=== PATIENT | male | born 1980 | race Caucasian/White ===

== ENCOUNTER 2016-08-18 11:42 | Emergency (ER) | payer OTHER ==
[2016-08-18 11:55] VITALS: TEMP 98.1
--- NOTE | 2016-08-18 12:42 | ED ---
General Adult HPI - General Chief complaint: Neuro Symptoms/Deficit Stated complaint: lt arm numbness,chest pain Time Seen by Provider: 08/18/16 12:06 Source: patient, RN notes reviewed, old records reviewed Mode of arrival: ambulatory Limitations: no limitations - History of Present Illness Initial comments: This is a 36-year-old male here for evaluation. Patient has yearly evaluation of left arm tingling and tingling left fingers tingling. Patient has history of multiple cardiac surgeries, for valve replacements, she reviewed heart disease. Significant heart disease. Patient states complaining of left hand tingling for about a week. The left eye factors for symptoms. Patient states he is to use Coumadin as directed. Denies any other complaints of pain or shortness of breath - Related Data Home Medications Medication Instructions Recorded Confirmed Warfarin Sodium [Coumadin] 7.5 mg PO HS 08/18/16 08/18/16 Previous Rx's Medication Instructions Recorded Metoprolol Tartrate 25 mg PO BID #120 tab 08/18/16 Allergies Allergy/AdvReac Type Severity Reaction Status Date / Time No Known Allergies Allergy Verified 08/18/16 12:42 Review of Systems ROS Statement: Those systems with pertinent positive or pertinent negative responses have been documented in the HPI. ROS Other: All systems not noted in ROS Statement are negative. Past Medical History Additional Past Medical History / Comment(s): GALLBLADDER NOT WORKING PROPERLY, CONGENITAL AORTIC VALVE STENOSIS History of Any Multi-Drug Resistant Organisms: None Reported Past Surgical History: Cardiac Valve Replacement, Coronary Bypass/CABG Additional Past Surgical History / Comment(s): 1991 & 1996 AORTIC VALVE REPLACED ,CYST REMOVED FROM THROAT Past Anesthesia/Blood Transfusion Reactions: No Reported Reaction Past Psychological History: No Psychological Hx Reported Smoking Status: Current every day smoker Past Alcohol Use History: Rare Additional Past Alcohol Use History / Comment(s): STARTED SMOKING 1995 ON AND OFF Past Drug Use History: Marijuana - Past Family History Mother Family Medical History: Diabetes Mellitus Father History Unknown: Yes General Exam Limitations: no limitations General appearance: alert, in no apparent distress Head exam: Present: atraumatic, normocephalic, normal inspection Eye exam: Present: normal appearance, PERRL, EOMI. Absent: scleral icterus, conjunctival injection, periorbital swelling ENT exam: Present: normal exam, mucous membranes moist Neck exam: Present: normal inspection. Absent: tenderness, meningismus, lymphadenopathy Respiratory exam: Present: normal lung sounds bilaterally. Absent: respiratory distress, wheezes, rales, rhonchi, stridor Cardiovascular Exam: Present: regular rate, normal rhythm, normal heart sounds. Absent: systolic murmur, diastolic murmur, rubs, gallop, clicks GI/Abdominal exam: Present: soft, normal bowel sounds. Absent: distended, tenderness, guarding, rebound, rigid Extremities exam: Present: normal inspection, full ROM, normal capillary refill. Absent: tenderness, pedal edema, joint swelling, calf tenderness Back exam: Present: normal inspection Neurological exam: Present: alert, oriented X3, CN II-XII intact Psychiatric exam: Present: normal affect, normal mood Skin exam: Present: warm, dry, intact, normal color. Absent: rash Course Vital Signs 08/18/16 08/18/16 08/18/16 11:52 12:22 13:00 Temperature 98.1 F Pulse Rate 105 H 101 H 95 Respiratory 20 20 20 Rate Blood Pressure 198/127 168/112 168/109 O2 Sat by Pulse 100 99 99 Oximetry 08/18/16 08/18/16 14:04 14:51 Temperature 98.1 F 98.1 F Pulse Rate 94 84 Respiratory 18 18 Rate Blood Pressure 175/110 152/98 O2 Sat by Pulse 100 98 Oximetry - Reevaluation(s) Reevaluation #1: Patient's symptoms have resolved blood pressure control EKG Findings - EKG Comments: EKG Findings:: EKG shows sinus tachycardia rate 101, CO 180, QRS 122, QTC 497 Medical Decision Making - Medical Decision Making 36 year with complexly [employer] medical history of multiple cardiac surgeries coming in with tingling in left arm, no source of breath no chest pain mildly hypertensive in no history of high blood pressure. Patient takes nothing for blood pressure, patient restart on beta katerina low dose as that seemed to help with her symptoms here in the emergency room. Patient is in no acute distress has no complaints is okay for discharge home, will follow up with cardiology as soon as he can - Lab Data Result diagrams: 08/18/16 13:00 08/18/16 13:00 Lab Results 08/18/16 08/18/16 08/18/16 Range/Units 12:49 12:57 12:57 WBC (3.8-10.6) k/uL RBC (4.30-5.90) m/uL Hgb (13.0-17.5) gm/dL Hct (39.0-53.0) % MCV (80.0-100.0) fL MCH (25.0-35.0) pg MCHC (31.0-37.0) g/dL RDW (11.5-15.5) % Plt Count (150-450) k/uL Neutrophils % % Lymphocytes % % Monocytes % % Eosinophils % % Basophils % % Neutrophils # (1.3-7.7) k/uL Lymphocytes # (1.0-4.8) k/uL Monocytes # (0-1.0) k/uL Eosinophils # (0-0.7) k/uL Basophils # (0-0.2) k/uL PT (9.0-12.0) sec INR (<1.1) APTT (22.0-30.0) sec Sodium (137-145) mmol/L Potassium (3.5-5.1) mmol/L Chloride (98-107) mmol/L Carbon Dioxide (22-30) mmol/L Anion Gap mmol/L BUN (9-20) mg/dL Creatinine (0.66-1.25) mg/dL Est GFR (MDRD) Af Amer (>60 ml/min/1.73 sqM) Est GFR (MDRD) Non-Af (>60 ml/min/1.73 sqM) Glucose (74-99) mg/dL Calcium (8.4-10.2) mg/dL Phosphorus (2.5-4.5) mg/dL Magnesium (1.6-2.3) mg/dL Total Bilirubin (0.2-1.3) mg/dL AST (17-59) U/L ALT (21-72) U/L Alkaline Phosphatase (38-126) U/L Total Creatine Kinase 149 (55-170) U/L CK-MB (CK-2) 1.5 (0.0-2.4) ng/mL CK-MB (CK-2) Rel Index 1.0 Troponin I <0.012 (0.000-0.034) ng/mL NT-Pro-B Natriuret Pep 324 pg/mL Total Protein (6.3-8.2) g/dL Albumin (3.5-5.0) g/dL Urine Color Yellow Urine Appearance Clear (Clear) Urine pH 6.5 (5.0-8.0) Ur Specific [place] 1.020 (1.001-1.035) Urine Protein 1+ H (Negative) Urine Glucose (UA) Negative (Negative) Urine Ketones Negative (Negative) Urine Blood Negative (Negative) Urine Nitrite Negative (Negative) Urine Bilirubin Negative (Negative) Urine Urobilinogen <2.0 (<2.0) mg/dL Ur Leukocyte Esterase Negative (Negative) Urine RBC 2 (0-5) /hpf Urine WBC 2 (0-5) /hpf Urine Mucus Moderate H (None) /hpf 08/18/16 08/18/16 08/18/16 Range/Units 12:57 13:00 13:00 WBC 6.3 (3.8-10.6) k/uL RBC 4.67 (4.30-5.90) m/uL Hgb 13.5 (13.0-17.5) gm/dL Hct 39.8 (39.0-53.0) % MCV 85.4 (80.0-100.0) fL MCH 28.9 (25.0-35.0) pg MCHC 33.9 (31.0-37.0) g/dL RDW 14.4 (11.5-15.5) % Plt Count 355 (150-450) k/uL Neutrophils % 70 % Lymphocytes % 20 % Monocytes % 6 % Eosinophils % 2 % Basophils % 1 % Neutrophils # 4.4 (1.3-7.7) k/uL Lymphocytes # 1.3 (1.0-4.8) k/uL Monocytes # 0.4 (0-1.0) k/uL Eosinophils # 0.1 (0-0.7) k/uL Basophils # 0.0 (0-0.2) k/uL PT 23.6 H (9.0-12.0) sec INR 2.5 (<1.1) APTT 31.7 H (22.0-30.0) sec Sodium 141 (137-145) mmol/L Potassium 3.9 (3.5-5.1) mmol/L Chloride 102 (98-107) mmol/L Carbon Dioxide 30 (22-30) mmol/L Anion Gap 9 mmol/L BUN 8 L (9-20) mg/dL Creatinine 0.90 (0.66-1.25) mg/dL Est GFR (MDRD) Af Amer >60 (>60 ml/min/1.73 sqM) Est GFR (MDRD) Non-Af >60 (>60 ml/min/1.73 sqM) Glucose 90 (74-99) mg/dL Calcium 9.5 (8.4-10.2) mg/dL Phosphorus 4.2 (2.5-4.5) mg/dL Magnesium 2.1 (1.6-2.3) mg/dL Total Bilirubin 1.3 (0.2-1.3) mg/dL AST 47 (17-59) U/L ALT 44 (21-72) U/L Alkaline Phosphatase 70 (38-126) U/L Total Creatine Kinase (55-170) U/L CK-MB (CK-2) (0.0-2.4) ng/mL CK-MB (CK-2) Rel Index Troponin I (0.000-0.034) ng/mL NT-Pro-B Natriuret Pep pg/mL Total Protein 7.4 (6.3-8.2) g/dL Albumin 4.4 (3.5-5.0) g/dL Urine Color Urine Appearance (Clear) Urine pH (5.0-8.0) Ur Specific [place] (1.001-1.035) Urine Protein (Negative) Urine Glucose (UA) (Negative) Urine Ketones (Negative) Urine Blood (Negative) Urine Nitrite (Negative) Urine Bilirubin (Negative) Urine Urobilinogen (<2.0) mg/dL Ur Leukocyte Esterase (Negative) Urine RBC (0-5) /hpf Urine WBC (0-5) /hpf Urine Mucus (None) /hpf - Radiology Data Radiology results: report reviewed (Chest x-ray is negative for acute disease), image reviewed Disposition Clinical Impression: Hypertension, Arm paresthesia, left Disposition: HOME SELF-CARE Condition: Good Instructions: Paresthesia (ED), Hypertension (ED) Prescriptions: Metoprolol Tartrate 25 mg PO BID #120 tab Referrals: None,Stated [Primary Care Provider] - 1-2 days
--- NOTE | 2016-08-18 12:50 | XR ---
EXAMINATION TYPE: XR chest 2V DATE OF EXAM: 08/18/2016 12:35 PM COMPARISON: CTA chest May 22, 2015. HISTORY: Weakness and chest pain. History of aortic valve replacement. TECHNIQUE: Frontal and lateral views of the chest are obtained. FINDINGS: Sternal wires are redemonstrated. There is new metallic aortic valvular ring. There is no new focal air space opacity or pneumothorax seen. There is new small left pleural effusion or pleura l thickening suspected on frontal view though less prominent on lateral view. The cardiac silhouette size is upper limits of normal currently. The osseous structures are intact. IMPRESSION: Possible new small left pleural effusion or pleural thickening. Interval surgery at [facility] of aortic valve for ascending aortic aneurysm. No acute pulmonary process is otherwise evident.
[2016-08-18 13:09] LABS: Basophils % (A) 1 %; CHCM 35.2; Eosinophils # (A) 0.1 k/uL (0-0.7); Eosinophils % (A) 2 %; HCT 39.8 % (39.0-53.0); HDW 3.24; HGB 13.5 gm/dL (13.0-17.5); Luc # (Auto) 0.14; Luc % (Auto) 2; Lymphocytes # (A) 1.3 k/uL (1.0-4.8); Lymphocytes % (A) 20 %; MCH 28.9 pg (25.0-35.0); MCHC 33.9 g/dL (31.0-37.0); MCV 85.4 fL (80.0-100.0); Mean Platelet Volume 6.7; Monocytes # (A) 0.4 k/uL (0-1.0); Monocytes % (A) 6 %; Neutrophils # (A) 4.4 k/uL (1.3-7.7); Neutrophils % (A) 70 %; RBC 4.67 m/uL (4.30-5.90); RDW 14.4 % (11.5-15.5); WBC 6.3 k/uL (3.8-10.6)
[2016-08-18 13:18] LABS: INR 2.5 (<1.1); Partial Thromboplastin Time 31.7 sec (22.0-30.0); Prothrombin Time 23.6 sec (9.0-12.0)
[2016-08-18 13:20] LABS: Appearance,Urine Clear (Clear); Bilirubin,Urine Negative (Negative); Glucose,Urine (UA) Negative (Negative); Ketones,Urine Negative (Negative); Leukocyte Esterase,Urine Negative (Negative); Mucus,Urine Moderate /hpf; Nitrite,Urine Negative (Negative); PH, Urine 6.5 (5.0-8.0); Particle Count 19429; Protein,Urine 1+ (Negative); RBC,Urine 2 /hpf (0-5); UA Billing (MACRO vs. MICRO) MICRO; Urobilinogen,Urine <2.0 mg/dL (<2.0); WBC,Urine 2 /hpf (0-5)
[2016-08-18 13:24] LABS: ALT 44 U/L (21-72); AST 47 U/L (17-59); Alkaline Phosphatase 70 U/L (38-126); Anion Gap 9 mmol/L; Blood Urea Nitrogen 8 mg/dL (9-20); Calcium 9.5 mg/dL (8.4-10.2); Carbon Dioxide 30 mmol/L (22-30); Chloride 102 mmol/L (98-107); Glucose 90 mg/dL (74-99); Magnesium 2.1 mg/dL (1.6-2.3); Non-African American GFR(MDRD) >60 (>60 ml/min/1.73 sqM); Phosphorous 4.2 mg/dL (2.5-4.5); Sodium 141 mmol/L (137-145); Total Bilirubin 1.3 mg/dL (0.2-1.3); Total Protein 7.4 g/dL (6.3-8.2)
[2016-08-18 13:29] LABS: Potassium 3.9 mmol/L (3.5-5.1)
[2016-08-18 13:43] LABS: Creatine Kinase 149 U/L (55-170)
[2016-08-18 13:57] LABS: Creatine Kinase MB 1.5 ng/mL (0.0-2.4); Troponin I <0.012 ng/mL (0.000-0.034)
[2016-08-18] MEDS ORDERED: LABETALOL SYRINGE 5 MG/ML IVP STA (14:03)
[2016-08-18 14:05] VITALS: RESP 18
[2016-08-18 14:51] VITALS: BP 152/98; PULSE 84
== END 2016-08-18 14:51 | disposition home or self-care (01) ==
LOC: EC 11:42
DX: I10 Essential (primary) hypertension (principal); R20.9 Unspecified disturbances of skin sensation; F17.200 Nicotine dependence, unspecified, uncomplicated; Z79.01 Long term (current) use of anticoagulants; Z98.61 Coronary angioplasty status
CPT/HCPCS: 36415; 71020; 80053; 81001; 82550; 82553; 83735; 83880; 84100; 84484; 85025; 85610; 85730; 93005; 96374; 99284

== ENCOUNTER 2017-01-09 22:36 | Observation (INO) | payer OTHER ==
[2017-01-09] MEDS ORDERED: NITROGLYCERIN OINT 1 INCH/GM PACKET TOPICAL STA (22:46)
[2017-01-09 23:11] LABS: Basophils % (A) 1 %; CH 31.4; CHCM 35.7; Eosinophils # (A) 0.2 k/uL (0-0.7); Eosinophils % (A) 3 %; HCT 41.1 % (39.0-53.0); HDW 3.01; Luc # (Auto) 0.12; Luc % (Auto) 2; Lymphocytes # (A) 1.8 k/uL (1.0-4.8); Lymphocytes % (A) 22 %; MCH 30.1 pg (25.0-35.0); MCHC 34.1 g/dL (31.0-37.0); MCV 88.4 fL (80.0-100.0); Mean Platelet Volume 7.3; Monocytes # (A) 0.4 k/uL (0-1.0); Monocytes % (A) 5 %; Neutrophils # (A) 5.4 k/uL (1.3-7.7); Neutrophils % (A) 67 %; RBC 4.65 m/uL (4.30-5.90); RDW 15.6 % (11.5-15.5); WBC (Perox) 8.18
[2017-01-09 23:20] LABS: INR 4.2 (<1.2); Partial Thromboplastin Time 39.3 sec (22.0-30.0); Prothrombin Time 41.2 sec (9.0-12.0)
[2017-01-09 23:21] LABS: ALT 59 U/L (21-72); AST 59 U/L (17-59); Alkaline Phosphatase 83 U/L (38-126); Anion Gap 11 mmol/L; Blood Urea Nitrogen 10 mg/dL (9-20); Calcium 9.5 mg/dL (8.4-10.2); Carbon Dioxide 26 mmol/L (22-30); Chloride 105 mmol/L (98-107); Glucose 92 mg/dL (74-99); Non-African American GFR(MDRD) >60 (>60 ml/min/1.73 sqM); Potassium 4.6 mmol/L (3.5-5.1); Sodium 142 mmol/L (137-145); Total Bilirubin 1.4 mg/dL (0.2-1.3); Total Protein 7.3 g/dL (6.3-8.2)
--- NOTE | 2017-01-09 23:26 | XR ---
EXAM: XR Chest, 2 Views CLINICAL HISTORY: Reason: Pain TECHNIQUE: Frontal and lateral views of the chest. COMPARISON: 08/18/16 FINDINGS: Lungs: Multiple surgical clips over right upper lung zone are again noted. Pleural space: Unremarkable. No pneumothorax. Heart: Sternal wires and prosthetic heart valve are again noted. Mediastinum: Unremarkable. Bones/joints: Within normal limits. IMPRESSION: No acute findings.
--- NOTE | 2017-01-09 23:35 | ED ---
Chest Pain HPI - General Stated Complaint: chest pain Time Seen by Provider: 01/09/17 22:38 Source: patient, police, EMS Mode of arrival: EMS Limitations: no limitations - History of Present Illness Initial Comments: This is a 36-year-old male with a history of aortic valve replacement due to a congenital abnormality who presents emergency department for numbness of the right arm and left neck with chest discomfort. He states that the symptoms been going on for today. He states that he is noticed that his blood pressure is been high because the clicking from his valve has been louder. He denies any real chest pain. He states that he has chronic discomfort from the surgery and never healed appropriately. He denies any shortness of breath. No recent travel or surgery. EKG done at the [facility] was concerning for possible [place] so he was sent to the emergency department. He reportedly has been having a little bit more elevated blood pressures over the last few days. He does take metoprolol 25 mg twice a day. He took his nighttime dose before he came to the hospital. - Related Data Home Medications Medication Instructions Recorded Confirmed Warfarin [Coumadin] 9 mg PO HS 01/09/17 01/09/17 Previous Rx's Medication Instructions Recorded Metoprolol Tartrate 25 mg PO BID #120 tab 08/18/16 Allergies Allergy/AdvReac Type Severity Reaction Status Date / Time No Known Allergies Allergy Verified 01/09/17 22:49 Review of Systems ROS Statement: Those systems with pertinent positive or pertinent negative responses have been documented in the HPI. ROS Other: All systems not noted in ROS Statement are negative. EKG Findings - EKG Comments: EKG Findings:: EKG showing normal sinus rhythm with a rate of 70. No abnormal ST segment changes or T-wave inversions. He has deep Q waves in the anterior leads. Suspicious for incomplete right bundle-branch block. QTC is 432. Other intervals are normal. No ectopy. Past Medical History Additional Past Medical History / Comment(s): GALLBLADDER NOT WORKING PROPERLY, CONGENITAL AORTIC VALVE STENOSIS, congenital heart disease,, History of Any Multi-Drug Resistant Organisms: None Reported Past Surgical History: Cardiac Valve Replacement, Coronary Bypass/CABG Additional Past Surgical History / Comment(s): 1991 & 1996 AORTIC VALVE REPLACED in 2014,CYST REMOVED FROM THROAT Past Anesthesia/Blood Transfusion Reactions: No Reported Reaction Past Psychological History: No Psychological Hx Reported Smoking Status: Former smoker Past Alcohol Use History: None Reported, Rare Past Drug Use History: Marijuana - Past Family History Mother Family Medical History: Diabetes Mellitus Father History Unknown: Yes General Exam - General Exam Comments Initial Comments: Constitutional: Awake alert Appears comfortable Head: Normocephalic atraumatic Eyes: no conjunctival injection No scleral icterus EOMI Neck: No JVD Supple Heart: Regular rate rhythm normal S1-S2 no murmurs, the patient has an audible click from his valve Lungs: Clear to auscultation bilaterally No wheezing No rales Abdomen: Soft nondistended nontender Extremities: Non edematous DP pulses intact Radial pulses intact Neuro: A&Ox3 No focal neurologic deficits Psych: Appropriate mood and affect Limitations: no limitations Course Vital Signs 01/09/17 01/09/17 01/10/17 22:41 23:34 00:36 Temperature 98.3 F 98.0 F Pulse Rate 71 66 70 Respiratory 18 18 18 Rate Blood Pressure 186/103 167/103 152/89 O2 Sat by Pulse 100 99 98 Oximetry Chest Pain MDM - MDM This is a 36-year-old male who presents emergency department for hypertension and neck and arm numbness and discomfort. He states that his blood pressure is also been poorly controlled after the last 3 or 4 days. The patient has had no changes to his medications. Here EKG was unchanged from previous. Blood pressure was elevated on arrival at 183/105. He was given nitro paste here which improved his blood pressure significantly. Troponins were negative. At this time due the patient's history of aortic valve replacement I feel that he should stay for better blood pressure control and adjustment of his blood pressure medications. I do not feel that heparin is required at this time is his Coumadin is slightly supratherapeutic and the patient was not really having any chest discomfort. I spoke with Dr. Cassidy who accepts the admission. All questions are answered. Disposition Clinical Impression: Hypertensive urgency Disposition: ADMITTED IP TO THIS HOSP Condition: Stable
[2017-01-09 23:45] LABS: Creatine Kinase MB 1.6 ng/mL (0.0-2.4); Troponin I <0.012 ng/mL (0.000-0.034)
[2017-01-10] MEDS ORDERED: NALOXONE 0.4 MG/ML 1 ML VIAL IV PRN (01:02)
[2017-01-10 06:48] LABS: INR 4.1 (<1.2); Prothrombin Time 40.7 sec (9.0-12.0)
[2017-01-10] MEDS ORDERED: RX INFO: IV CONTRAST WAS GIVEN 1 EACH MISC MISCELLANE PRN (08:50)
[2017-01-10] MEDS ORDERED: METOPROLOL TARTRATE 25 MG TAB PO SCH (09:00)
--- NOTE | 2017-01-10 09:37 | CT ---
EXAMINATION TYPE: CT angio chest DATE OF EXAM: 01/10/2017 9:25 AM COMPARISON: 05/22/2015 HISTORY: elevated BP, Rt arm pain, history of aortic valve stenosis CT DLP: 870 mGycm Automated exposure control for dose reduction was used. CONTRAST: CTA scan of the thorax is performed without and with IV Contrast, patient injected with 100 mL of Omn ipaque 350, pulmonary embolism protocol. . FINDINGS: Heart size is enlarged. No persistent filling defects are evident to suggest an acute pulmonary embol ism. No mediastinal or hilar adenopathy enlarged by CT criteria is evident. Previous surgery involving the ascending aorta noted. Aortic arch demonstrates a maximal dimension of 3.6 cm and again demonstrate lobulation and ectasia. The main pulmonary artery diameter at the bifurcation is 1.9 cm. Aneurysmal dilatation may have some compression of the right main pulmonary artery. The descending thoracic aorta tapers normally. Pulmonary arteries enhance normally. There is prominen ce of the left subclavian origin estimated at 2.6 cm. Lung windows are clear. Limited CT section through the upper abdomen are unremarkable. Hypertrophic change of the spine noted. Sternotomy wires seen. IMPRESSIONS: 1. No acute pulmonary embolism. 2. 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 Previous surgery involving the proximal aorta compatible with aneurysm repair.
--- NOTE | 2017-01-10 11:36 | ECHOF ---
Referral Reason:htn MEASUREMENTS -------- HEIGHT: 182.9 cm WEIGHT: 90.7 kg BP: 149/85 RVIDd: 3.2 cm (< 3.3) IVSd: 1.4 cm (0.6 - 1.1) LVIDd: 3.7 cm (3.9 - 5.3) LVPWd: 1.4 cm (0.6 - 1.1) IVSs: 1.9 cm LVIDs: 2.8 cm LVPWs: 1.8 cm LA Diam: 3.3 cm (2.7 - 3.8) LAESV Index (A-L): 24.30 ml/m Ao Diam: 2.5 cm (2.0 - 3.7) MV EXCURSION: 24.902 mm (> 18.000) MV EF SLOPE: 84 mm/s (70 - 150) EPSS: 0.7 cm MV E Elie: 0.87 m/s MV DecT: 231 ms MV A Elie: 0.61 m/s MV E/A Ratio: 1.42 AV maxP.42 mmHg AV meanP.91 mmHg FINDINGS -------- Sinus rhythm. This was a technically good study. Pt is S/P Repair of Asc. Aorta and AVR with mech. Valve. The left ventricular size is normal. There is moderate concentric left ventricular hypertrophy. Overall left ventricular systolic function is normal with, an EF between 55 - 60 %. The right ventricle is normal in size. Normal LA size by volume 22+/-6 ml/m2. The right atrium is normal in size. Peak/mean gradient across the Aortic Valve is 7.42mmHg / 3.91mmHg. Normally functioning mechanical prosthetic valve. The mitral valve leaflets are mild to moderately thickened. Mild mitral annular calcification present. Mild mitral regurgitation is present. The tricuspid valve appears structurally normal. No regurgitation noted 2.14m/sMild pulmonic stenosis. The aortic root size is normal. The ascending aorta is dilated measuring up to 38 mm. Normal inferior vena cava with normal inspiratory collapse consistent with estimated right atrial pressure of 5 mmHg. There is no pericardial effusion. CONCLUSIONS -------- 1. Sinus rhythm. 2. Normally functioning mechanical prosthetic valve. 3. The mitral valve leaflets are mild to moderately thickened. 4. Mild mitral annular calcification present. 5. Mild mitral regurgitation is present. 6. The tricuspid valve appears structurally normal. 7. No regurgitation noted 8. 2.14m/sMildpulmonic stenosis. 9. The aortic root size is normal. 10. The ascending aorta is dilated measuring up to 38 mm. 11. Normal inferior vena cava with normal inspiratory collapse consistent with estimated right atrial pressure of 5 mmHg. 12. This was a technically good study. 13. There is no pericardial effusion. 14. The left ventricular size is normal. 15. There is moderate concentric left ventricular hypertrophy. 16. Overall left ventricular systolic function is normal with, an EF between 55 - 60 %. 17. The right ventricle is normal in size. 18. Normal LA size by volume 22+/-6 ml/m2. 19. The right atrium is normal in size. 20. Peak/mean gradient across the Aortic Valve is 7.42mmHg / 3.91mmHg. UPPER AND BOTTOM LACER HAND: Sejal Giron RDCS
--- NOTE | 2017-01-10 13:33 | CONS ---
This is a 36-year-old gentleman with a known history of congenital heart disease with previous multiple open heart surgeries. He was last seen by Dr. Cabrera in May of 2015. At that time he had aortic valve stenosis and significant dilatation of ascending aorta. After that visit, in July of 2015 he went on to have mechanical aortic valve replacement with repair of ascending aorta. He is followed by a parts chaser in [facility]. He is currently incarcerated, was brought in by the Reclamation Engineer. His complaint was basically an elevated blood pressure and also a tingling feeling in the right upper extremity. With these symptoms he came into the hospital. He was found to have an elevated blood pressure after arrival and this has been addressed. His blood pressure is back to normal. His symptoms have resolved and his troponins are normal. At the time of my evaluation he is resting comfortably without symptoms. The quality of pain in his right anterior chest and also right upper extremity seemed very nondescript and quite atypical and this has already resolved. His blood pressure is normal, about 120 systolic. I am resuming his beta katerina and also his Coumadin will be reduced from 9 to 8 mg daily. His INR was 4.1 today. I have advised that he should have a CT angiography to assess his ascending aorta and if this is normal he can be discharged. He is known to have dilatation of the left subclavian which was found before but was not addressed and is being followed noninvasively at [facility]. PAST MEDICAL HISTORY: Remarkable for congenital heart disease for which he has had multiple surgeries. The last operation was in July of 2015 with repair of ascending aorta and replacement of aortic valve with a mechanical valve. Prior to that he also had a pulmonary valve replacement performed, the details of which are not available. He is also known to have hypertension as well. MEDICATIONS AT HOME: Include Coumadin and metoprolol. ALLERGIES: None. REVIEW OF SYSTEMS: Unremarkable other than above mentioned. On examination, blood pressure this morning was 117 systolic, pulse rate about 80 per minute. HEENT: Unremarkable. Fundus was not examined by me. NECK: Supple. There is no JVD. I do not hear a carotid bruit. HEART: Reveals S1/S2 with a prosthetic valve click and a short systolic murmur which is also conducted in the carotids. There are no gallops. LUNGS: Reveal decent air entry. ABDOMEN: Soft, nontender. LOWER EXTREMITIES: Reveal normal pulses. No edema. CENTRAL NERVOUS SYSTEM: Normal. EKG reveals sinus mechanism, IVCD after RBBB type and LVH by voltage criteria. LABORATORY DATA: Revealed unremarkable troponins. IMPRESSION: 1. Accelerated hypertension which has now settled down. 2. Atypical chest pain. 3. History of aortic valve replacement on mechanical vent and repair of ascending aorta performed in July of 2015 which is his third heart surgery. The details of previous surgeries are not known. He is known to have a pulmonary valve replacement as well. RECOMMENDATION: I am recommending that we will obtain a CT angiography of the chest to assess for his thoracic aortic status and if this is normal he can be discharged and follow up with his parts chaser at [facility]. No other intervention is necessary. I am recommending that we reduce the Coumadin from 9 to 8 mg daily, keep the INR between 3.5 and 4.0. Discussed my thoughts in detail with the patient. Thank you very much for the consult. MARLA
[2017-01-10 15:52] VITALS: BP 119/78; PULSE 69; RESP 18; TEMP 98
[2017-01-10] MEDS ORDERED: WARFARIN 2 MG TAB PO SCH (18:00)
--- NOTE | 2017-01-11 06:33 | HP ---
DATE OF ADMISSION: 01/10/2017 PRESENTING COMPLAINT: ( ) HISTORY OF PRESENTING COMPLAINT: This is a very pleasant 36-year-old patient who is actually in the fdc right now. The patient has a history of congenital aortic valve disorder and aneurysm. Patient had surgery way back on 1991 and 1996 and about a year and a half ago underwent aortic valve replacement with aneurysmal repair at [facility] by Dr. Garcia. This a mechanical heart failure. The patient on Coumadin. Patient had been in the fdc for about a month now. Patient presents with some discomfort in the neck area, some discomfort in the right arm and presented for the same. No dizziness, short of breath. No perspiration. Hence was admitted for further workup. No swelling in the legs. Otherwise tolerating his diet well. REVIEW OF SYSTEM: CONSTITUTIONAL: None. HEENT: None. RESPIRATORY: None. CARDIOVASCULAR: As above. GASTROINTESTINAL: None. GENITOURINARY: None. MUSCULOSKELETAL: None. DERMATOLOGICAL: Tattoos. LYMPHATICS: None. PSYCHIATRY: None. NEUROLOGICAL: None. 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 PAST SURGICAL HISTORY: Valve surgery in 1996 and aortic valve replacement with mechanical valve at [facility] by Dr. Garcia a year and a half ago. SOCIAL HISTORY: The patient normally smokes about 2 packs a day and does marijuana 1 or 2 grams a day. Lives with his fiance, currently incarcerated. FAMILY HISTORY: Diabetes mellitus type 2. HOME MEDICATIONS: 1. Lopressor 25 p.o. b.i.d. 2. Coumadin 8 mg p.o. daily. ALLERGIES: None. ON EXAMINATION: VITAL SIGNS ON PRESENTATION: Temperature 98.3, pulse 71, respirations 18, blood pressure 186/103, pulse ox 100% on room air. Repeat blood pressure went down 149/85. GENERAL APPEARANCE: Tall, average built, sitting up, comfortable. EYES: Pupils equal. Conjunctivae normal. HEENT: Oral cavity normal. NECK: JVD not raised. Mass not palpable. RESPIRATORY: Effort normal. Lungs are clear. CARDIOVASCULAR: Heart sounds are mechanical heart sounds. No edema. ABDOMEN: Soft, nontender. Liver and spleen not palpable. LYMPHATICS: No lymph node palpable in the neck or axillae. PSYCHIATRY: Alert and oriented x3. Mood and affect normal. NEUROLOGICAL: Pupils equal. Cranial nerves grossly intact. Power and sensation grossly intact. INVESTIGATIONS: White count 8, hemoglobin 14.0. INR 4.2. Potassium 4.6. Troponin x3 negative. EKG incomplete right bundle branch block. The 2-D echocardiogram some LVH. Chest CTA shows surgery to the proximal aorta compatible with aneurysmal repair. 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 ASSESSMENT: 1. Atypical chest pain, does not appear to be cardiac. 2. Mechanical aortic valve requiring Coumadin. 3. Coumadin monitoring. 4. Hyperbilirubinemia, asymptomatic. 5. Chronic nicotine dependence. PLAN: Cardiology was consulted. Home medications are resumed. INR will be followed. Care was discussed with the patient. Patient advised against smoking. Patient does not follow with any particular doctor here, but follows with Dr. Pearson his adult caregiver at [facility]. MARLA
[2017-01-11] MEDS ORDERED: WARFARIN 3 MG TAB PO SCH (21:00)
--- NOTE | 2017-01-14 08:37 | DS ---
DATE OF ADMISSION: 01/10/2017 DATE OF DISCHARGE: 01/10/2017 FINAL DIAGNOSES: 1. Atypical chest pain, noncardiac sounding. 2. Mechanical aortic valve, chronically on Coumadin. 3. Chronic nicotine dependence, cigarette smoker. 4. Left ventricular hypertrophy. HOSPITAL COURSE: This patient presented with some atypical chest pain, felt to be noncardiac. The patient has mechanical aortic valve done at [facility] by Dr. Garcia. Patient due to follow up with him. He was seen by Dr. Pedro Savage from cardiology. ( ) intervention. PE was ruled out. There was some left ventricular hypertrophy on his 2-D echocardiogram. DISCHARGE MEDICATIONS: 1. Metoprolol 25 mg po bid 2. Coumadin 8 mg po daily. Patient gets his INR checked. Continue checking the same. 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 Gallegos at [facility]. Care was discussed with the patient. On examination, mechanical heart sounds. Lungs are clear. MTDD
== END 2017-01-10 17:05 ==
LOC: EC 22:36 → 3OBS 01-10 01:02
PROVIDERS: ADMIT Hospitalist; ATTEND Hospitalist
DX: R07.89 Other chest pain (principal); Z95.2 Presence of prosthetic heart valve; Z79.01 Long term (current) use of anticoagulants; F17.210 Nicotine dependence, cigarettes, uncomplicated; I11.9 Hypertensive heart disease without heart failure; R17 Unspecified jaundice; Z95.1 Presence of aortocoronary bypass graft; Z79.899 Other long term (current) drug therapy; Z83.3 Family history of diabetes mellitus
CPT/HCPCS: 99285; 36415; 93005; 93306; 80053; 82553; 84484 ×2; 85025; 85610 ×2; 85730; 71020; 71275; G0378; Q9967

== ENCOUNTER 2017-04-21 11:19 | Emergency (ER) | payer OTHER ==
[2017-04-21 11:32] VITALS: RESP 18
[2017-04-21 12:29] LABS: Basophils # (A) 0.1 k/uL (0-0.2); Basophils % (A) 1 %; CHCM 35.1; Eosinophils # (A) 0.2 k/uL (0-0.7); Eosinophils % (A) 4 %; HDW 2.99; HGB 14.7 gm/dL (13.0-17.5); Luc # (Auto) 0.15; Luc % (Auto) 3; Lymphocytes # (A) 1.2 k/uL (1.0-4.8); Lymphocytes % (A) 21 %; MCH 30.3 pg (25.0-35.0); MCHC 34.2 g/dL (31.0-37.0); MCV 88.7 fL (80.0-100.0); Mean Platelet Volume 6.7; Monocytes # (A) 0.5 k/uL (0-1.0); Monocytes % (A) 9 %; Neutrophils # (A) 3.8 k/uL (1.3-7.7); Neutrophils % (A) 63 %; RBC 4.85 m/uL (4.30-5.90); WBC 5.9 k/uL (3.8-10.6); WBC (Perox) 5.89
--- NOTE | 2017-04-21 12:31 | ED ---
General Adult HPI - General Chief complaint: Recheck/Abnormal Lab/Rx Stated complaint: Abnormal Labs Time Seen by Provider: 04/21/17 11:35 Source: patient, RN notes reviewed Mode of arrival: ambulatory Limitations: no limitations - History of Present Illness Initial comments: 37 yo male with history of mechanical heart valve presents with elevated INR. Patient was found at his primary care physician to have an INR of 9. Patient states that approximately one day ago he did notice some minor bleeding from his gums, this is resolved without treatment. Patient denies rectal bleeding or hematuria. Denies abdominal pain. States he's had some intermittent chest pain, no chest pain currently.. Patient is currently asymptomatic. Patient has had some changes in his Coumadin dosing. - Related Data Previous Rx's Medication Instructions Recorded Metoprolol Tartrate 25 mg PO BID #120 tab 08/18/16 Warfarin [Coumadin] 8 mg PO DAILY@1800 #30 tab 01/10/17 Allergies Allergy/AdvReac Type Severity Reaction Status Date / Time No Known Allergies Allergy Verified 04/21/17 12:02 Review of Systems ROS Statement: Those systems with pertinent positive or pertinent negative responses have been documented in the HPI. ROS Other: All systems not noted in ROS Statement are negative. Past Medical History Additional Past Medical History / Comment(s): CONGENITAL AORTIC VALVE STENOSIS, congenital heart disease History of Any Multi-Drug Resistant Organisms: None Reported Past Surgical History: Cardiac Valve Replacement, Cholecystectomy, Coronary Bypass/CABG Additional Past Surgical History / Comment(s): 1991 & 1996 AORTIC VALVE REPLACED and again in 2014,CYST REMOVED FROM THROAT Past Anesthesia/Blood Transfusion Reactions: No Reported Reaction Past Psychological History: No Psychological Hx Reported Smoking Status: Current every day smoker Past Alcohol Use History: Rare Past Drug Use History: Marijuana - Past Family History Mother Family Medical History: Diabetes Mellitus Father History Unknown: Yes General Exam Limitations: no limitations General appearance: alert, in no apparent distress Head exam: Present: atraumatic, normocephalic Eye exam: Present: normal appearance, PERRL ENT exam: Present: normal exam Neck exam: Present: normal inspection. Absent: tenderness, meningismus Respiratory exam: Present: normal lung sounds bilaterally. Absent: respiratory distress Cardiovascular Exam: Present: regular rate, normal rhythm, systolic murmur GI/Abdominal exam: Present: soft. Absent: distended, tenderness Extremities exam: Present: normal inspection, full ROM, normal capillary refill. Absent: pedal edema Neurological exam: Present: alert, oriented X3. Absent: motor sensory deficit Psychiatric exam: Present: normal affect, normal mood Skin exam: Present: warm, dry, intact. Absent: cyanosis, diaphoretic Course Vital Signs 04/21/17 04/21/17 04/21/17 11:27 13:01 13:59 Temperature 97.0 F L 97.2 F L Pulse Rate 78 70 68 Respiratory 18 18 18 Rate Blood Pressure 155/95 129/81 133/73 O2 Sat by Pulse 98 99 Oximetry EKG Findings - EKG Comments: EKG Findings:: Normal sinus rhythm ventricular rate 76, MD interval 190, QRS duration 118, QTC 468, left anterior fascicular block, no signs of ischemia Medical Decision Making - Medical Decision Making 37 yo presenting with elevated INR. Outpatient INR was 19. Patient has recently been adjusting his Coumadin level. He was out of his medications and had to increase his dose. Patient's hemoglobin is stable, no signs of bleeding. INR is 5.8 in our lab. Patient is instructed to hold 2 doses of his warfarin and will follow-up for repeat INR with his primary care physician on Monday. Patient does have mild elevation in AST and ALT. No right upper quadrant pain. He will also follow up with his primary care physician regarding these laboratory abnormalities. - Lab Data Result diagrams: 04/21/17 12:12 04/21/17 12:12 Lab Results 04/21/17 04/21/17 04/21/17 Range/Units 12:12 12:12 12:12 WBC 5.9 (3.8-10.6) k/uL RBC 4.85 (4.30-5.90) m/uL Hgb 14.7 (13.0-17.5) gm/dL Hct 43.0 (39.0-53.0) % MCV 88.7 (80.0-100.0) fL MCH 30.3 (25.0-35.0) pg MCHC 34.2 (31.0-37.0) g/dL RDW 14.0 (11.5-15.5) % Plt Count 313 (150-450) k/uL Neutrophils % 63 % Lymphocytes % 21 % Monocytes % 9 % Eosinophils % 4 % Basophils % 1 % Neutrophils # 3.8 (1.3-7.7) k/uL Lymphocytes # 1.2 (1.0-4.8) k/uL Monocytes # 0.5 (0-1.0) k/uL Eosinophils # 0.2 (0-0.7) k/uL Basophils # 0.1 (0-0.2) k/uL PT (9.0-12.0) sec INR (<1.2) APTT (22.0-30.0) sec Sodium 140 (137-145) mmol/L Potassium 4.3 (3.5-5.1) mmol/L Chloride 102 (98-107) mmol/L Carbon Dioxide 30 (22-30) mmol/L Anion Gap 8 mmol/L BUN 9 (9-20) mg/dL Creatinine 0.81 (0.66-1.25) mg/dL Est GFR (MDRD) Af Amer >60 (>60 ml/min/1.73 sqM) Est GFR (MDRD) Non-Af >60 (>60 ml/min/1.73 sqM) Glucose 84 (74-99) mg/dL Calcium 9.9 (8.4-10.2) mg/dL Total Bilirubin 0.8 (0.2-1.3) mg/dL AST 133 H (17-59) U/L ALT 238 H (21-72) U/L Alkaline Phosphatase 86 (38-126) U/L Troponin I (0.000-0.034) ng/mL Total Protein 7.5 (6.3-8.2) g/dL Albumin 4.4 (3.5-5.0) g/dL Blood Type O Positive Blood Type Recheck No Antibody Screen POSITIVE Spec Expiration Date 04/24/2017231104/21/17 04/21/17 Range/Units 12:12 12:12 WBC (3.8-10.6) k/uL RBC (4.30-5.90) m/uL Hgb (13.0-17.5) gm/dL Hct (39.0-53.0) % MCV (80.0-100.0) fL MCH (25.0-35.0) pg MCHC (31.0-37.0) g/dL RDW (11.5-15.5) % Plt Count (150-450) k/uL Neutrophils % % Lymphocytes % % Monocytes % % Eosinophils % % Basophils % % Neutrophils # (1.3-7.7) k/uL Lymphocytes # (1.0-4.8) k/uL Monocytes # (0-1.0) k/uL Eosinophils # (0-0.7) k/uL Basophils # (0-0.2) k/uL PT 58.3 H (9.0-12.0) sec INR 5.8 H* (<1.2) APTT 42.1 H (22.0-30.0) sec Sodium (137-145) mmol/L Potassium (3.5-5.1) mmol/L Chloride (98-107) mmol/L Carbon Dioxide (22-30) mmol/L Anion Gap mmol/L BUN (9-20) mg/dL Creatinine (0.66-1.25) mg/dL Est GFR (MDRD) Af Amer (>60 ml/min/1.73 sqM) Est GFR (MDRD) Non-Af (>60 ml/min/1.73 sqM) Glucose (74-99) mg/dL Calcium (8.4-10.2) mg/dL Total Bilirubin (0.2-1.3) mg/dL AST (17-59) U/L ALT (21-72) U/L Alkaline Phosphatase (38-126) U/L Troponin I <0.012 (0.000-0.034) ng/mL Total Protein (6.3-8.2) g/dL Albumin (3.5-5.0) g/dL Blood Type Blood Type Recheck Antibody Screen Spec Expiration Date Disposition Clinical Impression: Elevated INR Disposition: HOME SELF-CARE Condition: Good Instructions: Elevated INR (ED) Referrals: Perri Zavaleta MD [Primary Care Provider] - 1-2 days Time of Disposition: 14:17
[2017-04-21 12:33] LABS: Partial Thromboplastin Time 42.1 sec (22.0-30.0)
[2017-04-21 12:38] LABS: Prothrombin Time 58.3 sec (9.0-12.0)
[2017-04-21 12:52] LABS: ALT 238 U/L (21-72); AST 133 U/L (17-59); Alkaline Phosphatase 86 U/L (38-126); Anion Gap 8 mmol/L; Blood Urea Nitrogen 9 mg/dL (9-20); Calcium 9.9 mg/dL (8.4-10.2); Carbon Dioxide 30 mmol/L (22-30); Chloride 102 mmol/L (98-107); Glucose 84 mg/dL (74-99); Non-African American GFR(MDRD) >60 (>60 ml/min/1.73 sqM); Potassium 4.3 mmol/L (3.5-5.1); Sodium 140 mmol/L (137-145); Total Bilirubin 0.8 mg/dL (0.2-1.3); Total Protein 7.5 g/dL (6.3-8.2)
[2017-04-21 13:04] LABS: INR 5.8 (<1.2)
[2017-04-21 14:00] VITALS: BP 133/73; PULSE 68; TEMP 97.2
== END 2017-04-21 14:30 | disposition home or self-care (01) ==
LOC: EC 11:19
DX: R79.1 Abnormal coagulation profile (principal); R74.0 Nonspecific elevation of levels of transaminase and lactic acid dehydrogenase [LDH]; R01.1 Cardiac murmur, unspecified; F17.200 Nicotine dependence, unspecified, uncomplicated; Z95.2 Presence of prosthetic heart valve
CPT/HCPCS: 36415; 80053; 84484; 85025; 85610; 85730; 86850; 86870; 86880; 86900; 86901; 86902; 93005; 99283

== ENCOUNTER → 2017-09-18 | Outpatient (CLI) | payer OTHER ==
--- NOTE | 2017-09-18 13:41 | CT ---
EXAMINATION TYPE: CT brain wo/w con DATE OF EXAM: 09/18/2017 COMPARISON: NONE HISTORY: Expressive aphasia x [address] DLP: 2505 mGycm Automated Exposure Control for Dose Reduction was Utilized. TECHNIQUE: CT scan of the head is performed without and with IV Contrast, patient injected with 100 m L of Isovue M300. FINDINGS: Noncontrast images show no acute intracranial hemorrhage or midline shift. The ventricles and sulci are within normal limits in size. Aguayo-white matter differentiation is fairly well preserv ed. Postcontrast images show no suspicious enhancing intraparenchymal mass. There is dominant tortuou s distal right vertebral artery incidentally noted. The globes are intact and the visualized sinuses are clear. IMPRESSION: No significant finding is seen to account for patient's symptoms.
== END | disposition home or self-care (01) ==
LOC: RADCTMAIN 12:20
PROVIDERS: ATTEND Psychiatry & Neurology Neurology
DX: R47.01 Aphasia (principal)
CPT/HCPCS: 70470; Q9967

== ENCOUNTER 2020-02-21 04:20 | Emergency (ER) | payer OTHER ==
--- NOTE | 2020-02-21 04:26 | ED ---
Recheck HPI - General Stated Complaint: Med Refill Time Seen by Provider: 02/21/20 04:21 Source: RN notes reviewed, old records reviewed Limitations: no limitations - History of Present Illness Initial Comments: This is a 31-year-old male presenting for evaluation regarding the medication refill MD Complaint: medication refill request -: unknown Returns Today for: request for prescription Symptoms Since Prior Visit: no new symptoms Context: ran out of medication Associated Symptoms: none - Related Data Previous Rx's Medication Instructions Recorded Metoprolol Tartrate 25 mg PO BID #120 tab 08/18/16 Warfarin [Coumadin] 8 mg PO DAILY@1800 #30 tab 01/10/17 Allergies Allergy/AdvReac Type Severity Reaction Status Date / Time No Known Allergies Allergy Verified 04/21/17 12:02 Review of Systems ROS Statement: Those systems with pertinent positive or pertinent negative responses have been documented in the HPI. ROS Other: All systems not noted in ROS Statement are negative. Past Medical History Additional Past Medical History / Comment(s): CONGENITAL AORTIC VALVE STENOSIS, congenital heart disease History of Any Multi-Drug Resistant Organisms: None Reported Past Surgical History: Cardiac Valve Replacement, Cholecystectomy, Coronary Bypass/CABG Additional Past Surgical History / Comment(s): 1991 & 1996 AORTIC VALVE REPLACED and again in 2014,CYST REMOVED FROM THROAT Past Anesthesia/Blood Transfusion Reactions: No Reported Reaction Past Psychological History: No Psychological Hx Reported Past Alcohol Use History: Rare Past Drug Use History: Marijuana - Past Family History Mother Family Medical History: Diabetes Mellitus Father History Unknown: Yes General Exam General appearance: alert, in no apparent distress Head exam: Present: atraumatic, normocephalic, normal inspection Eye exam: Present: normal appearance, PERRL, EOMI. Absent: scleral icterus, conjunctival injection, periorbital swelling ENT exam: Present: normal exam, mucous membranes moist Neck exam: Present: normal inspection. Absent: tenderness, meningismus, lymphadenopathy Respiratory exam: Present: normal lung sounds bilaterally. Absent: respiratory distress, wheezes, rales, rhonchi, stridor Cardiovascular Exam: Present: regular rate, normal rhythm, normal heart sounds. Absent: systolic murmur, diastolic murmur, rubs, gallop, clicks GI/Abdominal exam: Present: soft, normal bowel sounds. Absent: distended, tenderness, guarding, rebound, rigid Extremities exam: Present: normal inspection, full ROM, normal capillary refill. Absent: tenderness, pedal edema, joint swelling, calf tenderness Back exam: Present: normal inspection Neurological exam: Present: alert, oriented X3, CN II-XII intact Psychiatric exam: Present: normal affect, normal mood Skin exam: Present: warm, dry, intact, normal color. Absent: rash Course - Reevaluation(s) Reevaluation #1: 02/21/20 04:25 Medical record is reviewed Reevaluation #2: 02/21/20 04:25 Patient is no new significant symptoms or complaints Medical Decision Making - Medical Decision Making 39 male DF for evaluation patient Dese for evaluation regards to medication r efill, prescription will be refilled and patient can be discharged home Disposition Clinical Impression: Medication refill Disposition: HOME SELF-CARE Condition: Good Instructions (If sedation given, give patient instructions): Medicine Refill (ED) Is patient prescribed a controlled substance at d/c from ED?: No Referrals: Perri Zavaleta MD [Primary Care Provider] - 1-2 days
[2020-02-21 04:29] VITALS: BP 150/111; PULSE 121; RESP 16; TEMP 98.4
[2020-02-21] MEDS ORDERED: METOPROLOL TARTRATE 50 MG TAB PO STA (04:41)
[2020-02-21] MEDS ORDERED: lisinopriL 10 MG TAB PO STA (04:41)
[2020-02-21] MEDS ORDERED: ENOXAPARIN 100 MG/ML SYRINGE SQ ONE (05:00)
[2020-02-21] MEDS ORDERED: WARFARIN 5 MG TAB PO SCH (05:15)
[2020-02-21] MEDS ORDERED: WARFARIN 5 MG TAB PO ONE (05:15)
== END 2020-02-21 05:17 | disposition home or self-care (01) ==
LOC: EC 04:20
DX: Z76.0 Encounter for issue of repeat prescription (principal); F17.200 Nicotine dependence, unspecified, uncomplicated; Z95.1 Presence of aortocoronary bypass graft; Z95.2 Presence of prosthetic heart valve
CPT/HCPCS: 99282; 96372; J1650

== ENCOUNTER 2020-05-17 22:25 | Emergency (ER) | payer OTHER ==
[2020-05-17 22:34] VITALS: PULSE 66
[2020-05-17 23:06] LABS: Basophils # (A) 0.1 k/uL (0-0.2); Basophils % (A) 2 %; Eosinophils # (A) 0.2 k/uL (0-0.7); Eosinophils % (A) 4 %; HCT 40.6 % (39.0-53.0); HGB 14.2 gm/dL (13.0-17.5); Lymphocytes # (A) 1.5 k/uL (1.0-4.8); Lymphocytes % (A) 25 %; MCH 30.9 pg (25.0-35.0); MCV 88.3 fL (80.0-100.0); Mean Platelet Volume 7.3; Monocytes # (A) 0.4 k/uL (0-1.0); Monocytes % (A) 6 %; Neutrophils # (A) 3.8 k/uL (1.3-7.7); Neutrophils % (A) 62 %; Platelet Count 260 k/uL (150-450); RDW 13.5 % (11.5-15.5); WBC 6.1 k/uL (3.8-10.6)
--- NOTE | 2020-05-17 23:14 | XR ---
EXAMINATION TYPE: XR chest 2V DATE OF EXAM: 05/17/2020 COMPARISON: 01/09/2017 HISTORY: Chest pain TECHNIQUE: FINDINGS: Heart and mediastinum are normal. There is slight blunting of left costophrenic angle. Ther e are sternal wires. There are no hilar masses. Bony thorax is intact. IMPRESSION: Previous surgery. Minimal pleural diaphragmatic scarring left lung base. No acute lung di sease. No change compared to old exam.
[2020-05-17 23:15] LABS: ALT 89 U/L (4-49); AST 63 U/L (17-59); African American GFR (CKD) >90 (>60 ml/min/1.73 sqM); Albumin 4.5 g/dL (3.5-5.0); Alkaline Phosphatase 90 U/L (38-126); Anion Gap 4 mmol/L; Blood Urea Nitrogen 8 mg/dL (9-20); Calcium 9.3 mg/dL (8.4-10.2); Carbon Dioxide 29 mmol/L (22-30); Chloride 103 mmol/L (98-107); Glucose 96 mg/dL (74-99); INR 2.3 (<1.2); Magnesium 1.8 mg/dL (1.6-2.3); Non-African American GFR(CKD) >90 (>60 ml/min/1.73 sqM); Partial Thromboplastin Time 32.4 sec (22.0-30.0); Potassium 4.2 mmol/L (3.5-5.1); Prothrombin Time 22.8 sec (9.0-12.0); Sodium 136 mmol/L (137-145); Total Bilirubin 1.1 mg/dL (0.2-1.3); Total Protein 7.5 g/dL (6.3-8.2)
--- NOTE | 2020-05-18 00:41 | ED ---
General Adult HPI - General Chief complaint: Skin/Abscess/Foreign Body Stated complaint: High BP Time Seen by Provider: 05/17/20 22:38 Source: patient, family, RN notes reviewed, old records reviewed Mode of arrival: ambulatory Limitations: no limitations - History of Present Illness Initial comments: 40-year-old male patient to ED for evaluation of hypertension. Patient does have a history of congenital heart disease and aortic valve replacement as well as coronary artery bypass graft. His antiplatelet and warfarin. No chest pain no shortness of breath. Also reports that he has a painful lymph node under his left submandibular region. Systemic: Pt denies fatigue, fever/chills, rash. Pt denies weakness, night sweats, weight loss. Neuro: Pt denies headache, visual disturbances, syncope or pre-syncope. HEENT: Pt denies ocular discharge or irritation, otalgia, rhinorrhea, pharyngitis or notable lymphadenopathy. Cardiopulmonary: Pt denies chest pain, SOB, heart palpitations, dyspnea on exertion. Abdominal/GI: Pt denies abdominal pain, n/v/d. : Pt denies dysuria, burning w/ urination, frequency/urgency. Denies new onset urinary or bowel incontinence. MSK: Pt denies myalgia, loss of strength or function in extremities. Neuro: Pt denies new onset weakness, paresthesias. - Related Data Home Medications Medication Instructions Recorded Confirmed Amoxic-Pot Clav 875-125Mg 1 tab PO BID 05/17/20 05/17/20 [Augmentin 875-125] Ibuprofen [Motrin Ib] 400 mg PO TID PRN 05/17/20 05/17/20 Ibuprofen [Motrin Ib] 600 mg PO ONCE PRN 05/17/20 05/17/20 Metoprolol Tartrate [Lopressor] 75 mg PO BID 05/17/20 05/17/20 Warfarin [Coumadin] 5 mg PO HS 05/17/20 05/17/20 busPIRone HCl [Buspar] 10 mg PO BID 05/17/20 05/17/20 cloNIDine HCL [Catapres] 0.2 mg PO ONCE PRN 05/17/20 05/17/20 Previous Rx's Medication Instructions Recorded Lisinopril [Prinivil] 10 mg PO DAILY #30 tab 02/21/20 Allergies Allergy/AdvReac Type Severity Reaction Status Date / Time No Known Allergies Allergy Verified 05/17/20 22:57 Review of Systems ROS Statement: Those systems with pertinent positive or pertinent negative responses have been documented in the HPI. ROS Other: All systems not noted in ROS Statement are negative. Past Medical History Past Medical History: Hypertension Additional Past Medical History / Comment(s): CONGENITAL AORTIC VALVE STENOSIS, congenital heart disease History of Any Multi-Drug Resistant Organisms: None Reported Past Surgical History: Cardiac Valve Replacement, Cholecystectomy, Coronary Bypass/CABG Additional Past Surgical History / Comment(s): 1991 & 1996 AORTIC VALVE REPLACED and again in 2014,CYST REMOVED FROM THROAT Past Anesthesia/Blood Transfusion Reactions: No Reported Reaction Past Psychological History: No Psychological Hx Reported Smoking Status: Former smoker Past Alcohol Use History: Rare Past Drug Use History: Marijuana, Methamphetamine - Past Family History Mother Family Medical History: Diabetes Mellitus Father History Unknown: Yes General Exam - General Exam Comments Initial Comments: Constitutional: NAD, AOX3, Pt has pleasant affect. HEENT: NC/AT, trachea midline, neck supple, no lymphadenopathy. Posterior pharynx non erythematous, without exudates. External ears appear normal, without discharge. Mucous membranes moist. Eyes PERRLA, EOM intact. There is no scleral icterus. No pallor noted. Mild leg tender mobile submandibular lymph node approximately 1.5 cm. No external skin changes. Cardiopulmonary: RRR, no murmurs, rubs or gallops, no JVD noted. Lungs CTAB in anterior and posterior gonzalez. No peripheral edema. Abdominal exam: Abdomen soft and non-distended. Abdomen non-tender to palpation in all 4 quadrants. Bowel sounds active in LLQ. No hepatosplenomegaly. No ecchymosis Neuro: CN II-XII grossly intact. No nuchal rigidity. No raccon eyes, no payne sign, no hemotympanum. No cervical spinal tenderness. MSK: No posterior calf tenderness bilaterally, homans sign negative bilaterally. Posterior tibialis and radial pulse +2 bilaterally. Sensation intact in upper and lower extremities. Full active ROM in upper and lower extremities, 5/5 streg nth. Limitations: no limitations Course Vital Signs 05/17/20 05/17/20 05/17/20 22:27 23:01 23:20 Temperature 97.9 F Pulse Rate 66 66 Respiratory 18 17 Rate Blood Pressure 204/123 143/93 151/92 O2 Sat by Pulse 100 100 Oximetry 05/17/20 23:51 Temperature Pulse Rate Respiratory Rate Blood Pressure 139/88 O2 Sat by Pulse Oximetry Medical Decision Making - Medical Decision Making 40-year-old male patient to ED for evaluation of hypertension. Patient does take a beta katerina and ZORAIDA inhibitor. Patient also wanted a lymph node evaluated. Evidence of is mobile and mildly tender. Physical exam otherwise benign. Investigations unremarkable. EKG no significant change from prior. Patient blood pressure has been within acceptable limits without any intervention. Patient stable for discharge and outpatient follow-up and return precautions. Case discussed with Dr. Beavers. - Lab Data Result diagrams: 05/17/20 22:58 05/17/20 22:58 Lab Results 05/17/20 05/17/20 05/17/20 Range/Units 22:58 22:58 22:58 WBC 6.1 (3.8-10.6) k/uL RBC 4.60 (4.30-5.90) m/uL Hgb 14.2 (13.0-17.5) gm/dL Hct 40.6 (39.0-53.0) % MCV 88.3 (80.0-100.0) fL MCH 30.9 (25.0-35.0) pg MCHC 35.0 (31.0-37.0) g/dL RDW 13.5 (11.5-15.5) % Plt Count 260 (150-450) k/uL MPV 7.3 Neutrophils % 62 % Lymphocytes % 25 % Monocytes % 6 % Eosinophils % 4 % Basophils % 2 % Neutrophils # 3.8 (1.3-7.7) k/uL Lymphocytes # 1.5 (1.0-4.8) k/uL Monocytes # 0.4 (0-1.0) k/uL Eosinophils # 0.2 (0-0.7) k/uL Basophils # 0.1 (0-0.2) k/uL PT 22.8 H (9.0-12.0) sec INR 2.3 H (<1.2) APTT 32.4 H (22.0-30.0) sec Sodium 136 L (137-145) mmol/L Potassium 4.2 (3.5-5.1) mmol/L Chloride 103 (98-107) mmol/L Carbon Dioxide 29 (22-30) mmol/L Anion Gap 4 mmol/L BUN 8 L (9-20) mg/dL Creatinine 0.81 (0.66-1.25) mg/dL Est GFR (CKD-EPI)AfAm >90 (>60 ml/min/1.73 sqM) Est GFR (CKD-EPI)NonAf >90 (>60 ml/min/1.73 sqM) Glucose 96 (74-99) mg/dL Calcium 9.3 (8.4-10.2) mg/dL Magnesium 1.8 (1.6-2.3) mg/dL Total Bilirubin 1.1 (0.2-1.3) mg/dL AST 63 H (17-59) U/L ALT 89 H (4-49) U/L Alkaline Phosphatase 90 (38-126) U/L Troponin I (0.000-0.034) ng/mL Total Protein 7.5 (6.3-8.2) g/dL Albumin 4.5 (3.5-5.0) g/dL 05/17/20 Range/Units 22:58 WBC (3.8-10.6) k/uL RBC (4.30-5.90) m/uL Hgb (13.0-17.5) gm/dL Hct (39.0-53.0) % MCV (80.0-100.0) fL MCH (25.0-35.0) pg MCHC (31.0-37.0) g/dL RDW (11.5-15.5) % Plt Count (150-450) k/uL MPV Neutrophils % % Lymphocytes % % Monocytes % % Eosinophils % % Basophils % % Neutrophils # (1.3-7.7) k/uL Lymphocytes # (1.0-4.8) k/uL Monocytes # (0-1.0) k/uL Eosinophils # (0-0.7) k/uL Basophils # (0-0.2) k/uL PT (9.0-12.0) sec INR (<1.2) APTT (22.0-30.0) sec Sodium (137-145) mmol/L Potassium (3.5-5.1) mmol/L Chloride (98-107) mmol/L Carbon Dioxide (22-30) mmol/L Anion Gap mmol/L BUN (9-20) mg/dL Creatinine (0.66-1.25) mg/dL Est GFR (CKD-EPI)AfAm (>60 ml/min/1.73 sqM) Est GFR (CKD-EPI)NonAf (>60 ml/min/1.73 sqM) Glucose (74-99) mg/dL Calcium (8.4-10.2) mg/dL Magnesium (1.6-2.3) mg/dL Total Bilirubin (0.2-1.3) mg/dL AST (17-59) U/L ALT (4-49) U/L Alkaline Phosphatase (38-126) U/L Troponin I <0.012 (0.000-0.034) ng/mL Total Protein (6.3-8.2) g/dL Albumin (3.5-5.0) g/dL - EKG Data -: EKG Interpreted by Me (and Dr. Beavers ) EKG Comments: Ventricular rate 67, IA interval 196, QRS 130, QT/QTc 426/450. Normal sinus rhythm, possible left bundle branch block, right bundle branch block, left naterior fasicular block. No concern for acute ischemia. Disposition Clinical Impression: Hypertension Disposition: HOME SELF-CARE Condition: Stable Instructions (If sedation given, give patient instructions): Hypertension (ED) Additional Instructions: Follow up with PCP tomorrow. Continue to monitor blood pressure. Return to ED with any worsening symptoms. Is patient prescribed a controlled substance at d/c from ED?: No Referrals: Perri Zavaleta MD [Primary Care Provider] - 1-2 days
[2020-05-18 01:30] VITALS: BP 133/86; RESP 15; TEMP 98.5
== END 2020-05-18 01:20 | disposition home or self-care (01) ==
LOC: EC 22:25
DX: I10 Essential (primary) hypertension (principal); Z79.01 Long term (current) use of anticoagulants; Z79.899 Other long term (current) drug therapy; Z95.4 Presence of other heart-valve replacement; Z95.1 Presence of aortocoronary bypass graft; Z87.891 Personal history of nicotine dependence
CPT/HCPCS: 36415; 71046; 80053; 83735; 84484; 85025; 85610; 85730; 93005; 99284

== ENCOUNTER → 2020-07-23 | Outpatient (CLI) | payer BC, OTHER ==
[2020-07-23 15:51] LABS: African American GFR (CKD) >90 (>60 ml/min/1.73 sqM); Blood Urea Nitrogen 16 mg/dL (9-20); Non-African American GFR(CKD) 84 (>60 ml/min/1.73 sqM)
--- NOTE | 2020-07-23 16:16 | CT ---
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 Contrast CTA of the thoracic aorta was performed from the lung apex through the upper abdomen. 3D re construction imaging obtained at a separate workstation. CT Chest: THORACIC AORTA: Previous surgery involving the ascending aorta is again noted and is unchanged. Aorti c arch demonstrates a maximal dimension of 3.6 cm versus 3.6 cm and again demonstrate lobulation and ectasia. The main pulmonary artery diameter at the bifurcation is 1.9 cm. Aneurysmal dilatation may h ave some compression of the right main pulmonary artery. The descending thoracic aorta tapers normall y. Pulmonary arteries enhance normally. There is prominence of the left subclavian origin estimated a t 2.6 cm. LUNGS: The lungs are clear and free of infiltrate or atelectasis. No pulmonary nodule or mass is det ected. No pleural effusion or CT evidence of interstitial lung disease. MEDIASTINUM: No evidence for mediastinal hematoma. The heart is not enlarged. No evidence for med iastinal mass or adenopathy. HILAR STRUCTURES: No evidence for mass. No hilar adenopathy is appreciated. OTHER: No significant abnormality. IMPRESSION- Stable evaluation.
== END | disposition home or self-care (01) ==
LOC: RADCTMAIN 15:06
PROVIDERS: ATTEND Internal Medicine Interventional Cardiology
DX: I71.2 Thoracic aortic aneurysm, without rupture (principal); Z98.890 Other specified postprocedural states
CPT/HCPCS: 82565; 84520; 71275; 36415; Q9967

== ENCOUNTER → 2021-03-18 | Outpatient (CLI) | payer OTHER ==
--- NOTE | 2021-03-18 11:12 | US ---
EXAMINATION TYPE: US abdomen complete DATE OF EXAM: 03/18/2021 COMPARISON: Ultrasound abdomen March 04, 2015 CLINICAL HISTORY: R79.89 Elevated LFT, R94.4 Abnormal Kidney function. EXAM MEASUREMENTS: Liver Length: 14.0 cm Gallbladder Wall: Surgically absent CBD: 0.2 cm Spleen: 12.1 cm Right Kidney: 11.1x4.3x4.6 cm Left Kidney: 10.2x6.6x5.0 cm Very difficult exam due to bowel gas, body habitus. Pancreas: Obscured by bowel gas Liver: Increased attenuation, ? hemangioma 1.4x1.1x1.4cm seen previously, other small hyperechoic ar ea not visualized today Gallbladder: Surgically absent CBD: wnl Spleen: wnl Right Kidney: wnl Left Kidney: wnl Upper IVC: Obscured by overlying bowel gas Abd Aorta: Obscured by overlying bowel gas The visualized liver is heterogeneous. Evaluation for focal masses suboptimal due to the heterogeneit y. Technologist gilbert 1.4 cm hyperechoic round focus near the hepatic dome unchanged from prior study presumed benign hemangioma. Suboptimal visualization of the aorta and IVC. There is no evidence of cholelithiasis. Common bile duct is unremarkable. Suboptimal evaluation of pancreas on images saved. The spleen is unremarkable. Kidneys are symmetric and free of hydronephrosis. No renal lesions ar e seen. IMPRESSION: Heterogeneous hyperechoic appearance of liver could be an basis of diffuse fatty infiltra tion and/or underlying hepatocellular disease. No significant change from prior. Stable small hepatic dome hemangioma. No new intrahepatic ductal dilatation or surrounding ascites. No new hydronephrosis .
== END | disposition home or self-care (01) ==
LOC: RADUSWWP 09:47
PROVIDERS: ATTEND Family Medicine
DX: R79.89 Other specified abnormal findings of blood chemistry (principal)
CPT/HCPCS: 76700

== ENCOUNTER 2021-12-31 12:18 | Emergency (ER) | payer OTHER ==
[2021-12-31 12:37] VITALS: BP 100/68; RESP 18; TEMP 98.5
[2021-12-31] MEDS ORDERED: MECLIZINE 12.5 MG TAB PO STA (14:41)
--- NOTE | 2021-12-31 14:44 | ED ---
General Adult HPI - General Chief complaint: Neuro Symptoms/Deficit Stated complaint: dizziness Time Seen by Provider: 12/31/21 14:25 Source: patient, RN notes reviewed, old records reviewed Mode of arrival: ambulatory Limitations: no limitations - History of Present Illness Initial comments: 41-year-old well-appearing male presents ambulatory to the emergency room with complaints of intermittent dizziness for the past 2 days. Patient states that he was at work and he felt as though his balance was off and the room was spinning. He denies any headache. No falls, no head injuries. No focal motor weakness. He does take Coumadin for an artificial heart valve. Denies any fevers. -: days(s) (2) Severity scale (1-10): 0 Consistency: intermittent Improves with: immobilization Worsens with: movement, other (walking) Associated Symptoms: other (vertigo) Treatments Prior to Arrival: none - Related Data Home Medications Medication Instructions Recorded Confirmed Amoxic-Pot Clav 875-125Mg 1 tab PO BID 05/17/20 05/17/20 [Augmentin 875-125] Ibuprofen [Motrin Ib] 400 mg PO TID PRN 05/17/20 05/17/20 Ibuprofen [Motrin Ib] 600 mg PO ONCE PRN 05/17/20 05/17/20 Metoprolol Tartrate [Lopressor] 75 mg PO BID 05/17/20 05/17/20 Warfarin [Coumadin] 5 mg PO HS 05/17/20 05/17/20 busPIRone HCl [Buspar] 10 mg PO BID 05/17/20 05/17/20 cloNIDine HCL [Catapres] 0.2 mg PO ONCE PRN 05/17/20 05/17/20 Previous Rx's Medication Instructions Recorded lisinopriL [Prinivil] 10 mg PO DAILY #30 tab 02/21/20 Meclizine [Antivert] 25 mg PO TID PRN #15 tab 12/31/21 Allergies Allergy/AdvReac Type Severity Reaction Status Date / Time No Known Allergies Allergy Verified 12/31/21 12:37 Review of Systems ROS Statement: Those systems with pertinent positive or pertinent negative responses have been documented in the HPI. ROS Other: All systems not noted in ROS Statement are negative. Past Medical History Past Medical History: Hypertension Additional Past Medical History / Comment(s): CONGENITAL AORTIC VALVE STENOSIS, congenital heart disease History of Any Multi-Drug Resistant Organisms: None Reported Past Surgical History: Cardiac Valve Replacement, Cholecystectomy, Coronary Byp ass/CABG Additional Past Surgical History / Comment(s): 1991 & 1996 AORTIC VALVE REPLACED and again in 2014,CYST REMOVED FROM THROAT Past Anesthesia/Blood Transfusion Reactions: No Reported Reaction Past Psychological History: No Psychological Hx Reported Smoking Status: Former smoker Past Alcohol Use History: Rare Past Drug Use History: Marijuana, Methamphetamine - Past Family History Mother Family Medical History: Diabetes Mellitus Father History Unknown: Yes General Exam Limitations: no limitations General appearance: alert, in no apparent distress Head exam: Present: atraumatic, normocephalic, normal inspection Eye exam: Present: normal appearance, PERRL, EOMI. Absent: scleral icterus, conjunctival injection, nystagmus, periorbital swelling, periorbital tenderness Pupils: Present: normal accommodation ENT exam: Present: normal exam, normal oropharynx, mucous membranes moist Expanded Ear exam: Present: normal external inspection Mouth exam: Present: tongue normal, tongue elevation. Absent: drooling, trismus, muffled voice Neck exam: Present: normal inspection, full ROM. Absent: tenderness, menin gismus, lymphadenopathy, thyromegaly Respiratory exam: Present: normal lung sounds bilaterally. Absent: respiratory distress, accessory muscle use Cardiovascular Exam: Present: regular rate, clicks (Mechanical heart valve) GI/Abdominal exam: Present: soft Extremities exam: Present: full ROM, normal capillary refill. Absent: tenderness, pedal edema Neurological exam: Present: alert, oriented X3, CN II-XII intact, normal gait Expanded Patient oriented to: Present: person, place, time Speech: Present: fluid speech Cranial nerves: EOM's Intact: Normal, Gag Reflex: Normal, Tongue Deviation: Normal, Nystagmus: Normal Cerebellar function: Finger to Nose: Normal, Heel to Richards: Normal Upper motor neuron: Conrado Neglect: Normal, Pronator Drift: Normal Motor strength exam: RUE: 5, LUE: 5, RLE: 5, LLE: 5 Eye Response: (4) open spontaneously Motor Response: (6) obeys commands Verbal Response: (5) oriented Marco Total: 15 Psychiatric exam: Present: normal affect, normal mood Skin exam: Present: warm, dry, intact, normal color. Absent: cyanosis, diaphoretic Course Vital Signs 12/31/21 12/31/21 12:35 17:59 Temperature 98.5 F Pulse Rate 75 72 Respiratory 18 18 Rate Blood Pressure 100/68 O2 Sat by Pulse 100 94 L Oximetry - Reevaluation(s) Reevaluation #1: 12/31/21 15:39 Patient's symptoms have resolved after the Antivert. Case discussed with Dr. Linares who requested labs and EKG due to patient's history cardiac history. Patient is agreeable to this plan of care. Time: 15:39 EKG Findings - EKG Results: EKG: sinus rhythm (Ventricular rate 63, patient able 0.212, QRS 0.140, QTC 0.451; left axis deviation) Medical Decision Making - Medical Decision Making Patient presents with 2 days of intermittent dizziness. Worse with ambulation or movement. He denies any recent head injuries. Denies any headache. No changes. No focal logical deficits. He states that he did research his symptoms and it seems consistent with vertigo. Patient's dizziness has resolved after the Antivert. Case discussed with Dr. Linares and basic lab work and EKG were done due to his extensive medical history. Patient was reluctant but agreeable. EKG shows sinus rhythm. Creatinine was found to be 2.30. He states that his doctor has been following his kidney function. He was supposed to have labs done recently but did not. His last creatinine here on 07/23/2020 was 1.1. Patient was given IV fluids. He was offered admission and declined. I explained to the patient importance of following up with PCP with repeat labs and he states understanding. The symptoms are consistent with peripheral vertigo. He will be discharged home with a prescription for Antivert. Case discussed with Dr. Linares - Lab Data Result diagrams: 12/31/21 16:43 12/31/21 16:43 Lab Results 12/31/21 12/31/21 12/31/21 Range/Units 16:43 16:43 16:43 WBC 10.9 H (3.8-10.6) k/uL RBC 4.74 (4.30-5.90) m/uL Hgb 14.4 (13.0-17.5) gm/dL Hct 42.6 (39.0-53.0) % MCV 89.8 (80.0-100.0) fL MCH 30.4 (25.0-35.0) pg MCHC 33.8 (31.0-37.0) g/dL RDW 14.0 (11.5-15.5) % Plt Count 289 (150-450) k/uL MPV 7.9 Neutrophils % 73 % Lymphocytes % 16 % Monocytes % 7 % Eosinophils % 2 % Basophils % 0 % Neutrophils # 8.0 H (1.3-7.7) k/uL Lymphocytes # 1.7 (1.0-4.8) k/uL Monocytes # 0.7 (0-1.0) k/uL Eosinophils # 0.3 (0-0.7) k/uL Basophils # 0.1 (0-0.2) k/uL PT 32.9 H (9.0-12.0) sec INR 3.3 H (<1.2) Sodium 134 L (137-145) mmol/L Potassium 4.3 (3.5-5.1) mmol/L Chloride 98 (98-107) mmol/L Carbon Dioxide 27 (22-30) mmol/L Anion Gap 9 mmol/L BUN 27 H (9-20) mg/dL Creatinine 2.30 H (0.66-1.25) mg/dL Est GFR (CKD-EPI)AfAm 40 (>60 ml/min/1.73 sqM) Est GFR (CKD-EPI)NonAf 34 (>60 ml/min/1.73 sqM) Glucose 86 (74-99) mg/dL Calcium 9.7 (8.4-10.2) mg/dL Total Bilirubin 1.4 H (0.2-1.3) mg/dL AST 59 (17-59) U/L ALT 44 (4-49) U/L Alkaline Phosphatase 80 (38-126) U/L Total Protein 7.8 (6.3-8.2) g/dL Albumin 4.8 (3.5-5.0) g/dL Disposition Clinical Impression: Vertigo, ISABEL (acute kidney injury) Disposition: HOME SELF-CARE Condition: Good Instructions (If sedation given, give patient instructions): Acute Kidney Injury (DC), Vertigo (ED) Additional Instructions: It was recommended that you be admitted for your abnormal labs which indicate acute kidney injury. I understand that your doctor has been monitoring these levels. It is very important you follow-up with your primary care doctor next week. Increase your fluid intake. Use the Antivert as prescribed for vertigo. Return to the emergency room with any new or concerning symptoms. Prescriptions: Meclizine [Antivert] 25 mg PO TID PRN #15 tab PRN Reason: Vertigo Is patient prescribed a controlled substance at d/c from ED?: No Referrals: Perri Zavaleta MD [Primary Care Provider] - 1-2 days Time of Disposition: 17:48
[2021-12-31 16:52] LABS: Basophils # (A) 0.1 k/uL (0-0.2); Basophils % (A) 0 %; Eosinophils # (A) 0.3 k/uL (0-0.7); Eosinophils % (A) 2 %; HCT 42.6 % (39.0-53.0); HGB 14.4 gm/dL (13.0-17.5); Lymphocytes # (A) 1.7 k/uL (1.0-4.8); Lymphocytes % (A) 16 %; MCH 30.4 pg (25.0-35.0); MCHC 33.8 g/dL (31.0-37.0); MCV 89.8 fL (80.0-100.0); Mean Platelet Volume 7.9; Monocytes # (A) 0.7 k/uL (0-1.0); Monocytes % (A) 7 %; Neutrophils % (A) 73 %; Platelet Count 289 k/uL (150-450); RBC 4.74 m/uL (4.30-5.90); WBC 10.9 k/uL (3.8-10.6)
[2021-12-31 17:03] LABS: INR 3.3 (<1.2); Prothrombin Time 32.9 sec (9.0-12.0)
[2021-12-31 17:07] LABS: Albumin 4.8 g/dL (3.5-5.0); Calcium 9.7 mg/dL (8.4-10.2); Potassium 4.3 mmol/L (3.5-5.1); Total Bilirubin 1.4 mg/dL (0.2-1.3); Total Protein 7.8 g/dL (6.3-8.2)
[2021-12-31] MEDS ORDERED: SODIUM CHLORIDE 0.9% 1,000 ML IV ONE (17:26)
[2021-12-31 18:00] VITALS: PULSE 72
== END 2021-12-31 18:00 | disposition home or self-care (01) ==
LOC: EC 12:18
DX: N17.9 Acute kidney failure, unspecified (principal); I10 Essential (primary) hypertension; Z87.891 Personal history of nicotine dependence; Z79.899 Other long term (current) drug therapy
CPT/HCPCS: 36415; 80053; 85025; 85610; 93005; 99284

== ENCOUNTER 2022-09-09 00:57 | Emergency (ER) | payer OTHER ==
[2022-09-09 01:05] VITALS: BP 171/103; PULSE 80; RESP 16; TEMP 98.3
--- NOTE | 2022-09-09 01:24 | ED ---
General Adult HPI - General Chief complaint: Recheck/Abnormal Lab/Rx Stated complaint: INR Check Time Seen by Provider: 09/09/22 01:08 Source: patient Mode of arrival: ambulatory Limitations: no limitations - History of Present Illness Initial comments: Patient is a 42-year-old male requesting an INR check. Patient states that he has an appointment with his PCP tomorrow and he was told to have INR checked prior to the appointment. He is having no active bleeding at this time. No bleeding from the gums, no chest pain, no difficulty breathing. No abdominal pain, rectal bleeding, hematuria, hematochezia, melena, hematemesis, hemoptysis. - Related Data Home Medications Medication Instructions Recorded Confirmed Amoxic-Pot Clav 875-125Mg 1 tab PO BID 05/17/20 05/17/20 [Augmentin 875-125] Ibuprofen [Motrin Ib] 400 mg PO TID PRN 05/17/20 05/17/20 Ibuprofen [Motrin Ib] 600 mg PO ONCE PRN 05/17/20 05/17/20 Metoprolol Tartrate [Lopressor] 75 mg PO BID 05/17/20 05/17/20 Warfarin [Coumadin] 5 mg PO HS 05/17/20 05/17/20 busPIRone HCl [Buspar] 10 mg PO BID 05/17/20 05/17/20 cloNIDine HCL [Catapres] 0.2 mg PO ONCE PRN 05/17/20 05/17/20 Previous Rx's Medication Instructions Recorded lisinopriL [Prinivil] 10 mg PO DAILY #30 tab 02/21/20 Meclizine [Antivert] 25 mg PO TID PRN #15 tab 12/31/21 Allergies Allergy/AdvReac Type Severity Reaction Status Date / Time No Known Allergies Allergy Verified 09/09/22 01:01 Review of Systems ROS Statement: Those systems with pertinent positive or pertinent negative responses have been documented in the HPI. ROS Other: All systems not noted in ROS Statement are negative. Past Medical History Past Medical History: Hypertension Additional Past Medical History / Comment(s): CONGENITAL AORTIC VALVE STENOSIS, congenital heart disease History of Any Multi-Drug Resistant Organisms: None Reported Past Surgical History: Cardiac Valve Replacement, Cholecystectomy, Coronary Bypass/CABG Additional Past Surgical History / Comment(s): 1991 & 1996 AORTIC VALVE REPLACED and again in 2015,CYST REMOVED FROM THROAT Past Anesthesia/Blood Transfusion Reactions: No Reported Reaction Past Psychological History: No Psychological Hx Reported Smoking Status: Former smoker Past Alcohol Use History: Rare Past Drug Use History: Marijuana, Methamphetamine - Past Family History Mother Family Medical History: Diabetes Mellitus Father History Unknown: Yes General Exam Limitations: no limitations General appearance: alert, in no apparent distress Head exam: Present: atraumatic, normocephalic, normal inspection Eye exam: Present: normal appearance Neck exam: Present: normal inspection, full ROM Respiratory exam: Present: normal lung sounds bilaterally. Absent: respiratory distress, wheezes, rales, rhonchi, stridor Cardiovascular Exam: Present: regular rate, normal rhythm, systolic murmur. Absent: rubs, gallop, clicks Neurological exam: Present: alert, oriented X3, CN II-XII intact Psychiatric exam: Present: normal affect, normal mood Skin exam: Present: warm, dry, intact, normal color. Absent: rash Course Vital Signs 09/09/22 01:01 Temperature 98.3 F Pulse Rate 80 Respiratory 16 Rate Blood Pressure 171/103 O2 Sat by Pulse 100 Oximetry Medical Decision Making - Medical Decision Making Was pt. sent in by a medical professional or institution (, PA, MACHINE TESTER, urgent care, hospital, or senior care...) When possible be specific @ -No Did you speak to anyone other than the patient for history (EMS, parent, family, police, friend...)? What history was obtained from this source @ -No Did you review nursing and triage notes (agree or disagree)? Why? @ -I reviewed and agree with nursing and triage notes Were old charts reviewed (outside hosp., previous admission, EMS record, old EKG, old radiological studies, urgent care reports/EKG's, senior care records)? Report findings @ -No old charts were reviewed Differential Diagnosis (chest pain, altered mental status, abdominal pain women, abdominal pain men, vaginal bleeding, weakness, fever, dyspnea, syncope, headache, dizziness, GI bleed, back pain, seizure, CVA, palpatations, mental health, musculoskeletal)? @ -not applicable EKG interpreted by me (3pts min.). @ -As above X-rays interpreted by me (1pt min.). @ -None done CT interpreted by me (1pt min.). @ -None done U/S interpreted by me (1pt. min.). @ -None done What testing was considered but not performed or refused? (CT, X-rays, U/S, labs)? Why? @ -None What meds were considered but not given or refused? Why? @ -None Did you discuss the management of the patient with other professionals (professionals i.e. Dr., PA, MACHINE TESTER, lab, RT, psych nurse, social science professor, travel accommodations rater, teacher, public information officer, immigration case worker)? Give summary @ -No Was smoking cessation discussed for >3mins.? @ -No Was critical care preformed (if so, how long)? @ -No Were there social determinants of health that impacted care today? How? (Homelessness, low income, unemployed, alcoholism, drug addiction, transportation, low edu. Level, literacy, decrease access to med. care, snf, rehab)? @ -No Was there de-escalation of care discussed even if they declined (Discuss DNR or withdrawal of care, Hospice)? DNR status @ -No What co-morbidities impacted this encounter? (DM, HTN, Smoking, COPD, CAD, Cancer, CVA, ARF, Chemo, Hep., AIDS, mental health diagnosis, sleep apnea, morbid obesity)? @ -None Was patient admitted / discharged? Hospital course, mention meds given and route, prescriptions, significant lab abnormalities, going to OR and other pertinent info. @ -Patient is a 42-year-old male presenting with request for an INR check. Patient states that he has been trying to make his warfarin stretch, has appointment with his PCP tomorrow and states he was told to get checked prior to his appointment. He is having no symptoms at this time. Physical examination unremarkable. Patient's INR is subtherapeutic at 1.1. He will follow up with his regularly scheduled appointment later today. Follow-up with PCP. Report back to ER with any new or worsening symptoms. Discussed return parameters and answered all questions. Patient conveyed verbal understanding and agreed to the plan. I discussed this case in detail with my attending Dr. Michaels Undiagnosed new problem with uncertain prognosis? @ -No Drug Therapy requiring intensive monitoring for toxicity (Heparin, Nitro, Insulin, Cardizem)? @ -No Were any procedures done? @ -No Diagnosis/symptom? @ -Subtherapeutic INR Acute, or Chronic, or Acute on Chronic? @ -Acute Uncomplicated (without systemic symptoms) or Complicated (systemic symptoms)? @ -Uncomplicated Side effects of treatment? @ -No Exacerbation, Progression, or Severe Exacerbation? @ -No Poses a threat to life or bodily function? How? (Chest pain, [place], [place], pneumonia, PE, COPD, DKA, ARF, appy, cholecystitis, CVA, Diverticulitis, Homicidal, Suicidal, threat to staff... and all critical care pts) @ -No - Lab Data Lab Results 09/09/22 Range/Units 01:45 PT 11.1 (9.0-12.0) sec INR 1.1 (<1.2) APTT 24.1 (22.0-30.0) sec Disposition Clinical Impression: Subtherapeutic international normalized ratio (INR) Disposition: HOME SELF-CARE Condition: Fair Additional Instructions: Your INR is 1.1 at today's reading. Report back to ER with any worsening symptoms. Follow-up with your scheduled appointment with your PCP. Is patient prescribed a controlled substance at d/c from ED?: No Referrals: Perri Zavaleta MD [Primary Care Provider] - 1-2 days Time of Disposition: 02:30
[2022-09-09 02:12] LABS: INR 1.1 (<1.2); Partial Thromboplastin Time 24.1 sec (22.0-30.0); Prothrombin Time 11.1 sec (9.0-12.0)
== END 2022-09-09 02:37 | disposition home or self-care (01) ==
LOC: EC 00:57
DX: R79.1 Abnormal coagulation profile (principal); I10 Essential (primary) hypertension; Z87.891 Personal history of nicotine dependence; F12.90 Cannabis use, unspecified, uncomplicated; Z79.01 Long term (current) use of anticoagulants; Z79.899 Other long term (current) drug therapy
CPT/HCPCS: 36415; 85610; 85730; 99283

== ENCOUNTER 2022-11-02 08:58 | Emergency (ER) | payer OTHER ==
[2022-11-02 09:02] VITALS: RESP 18
[2022-11-02] MEDS ORDERED: ACET/COD 300 MG/30 MG STARTER PACK 6 TAB BTL PO STA (09:52)
[2022-11-02] MEDS ORDERED: HYDROcodone/APAP 5-325MG 1 EACH TAB PO STA (09:52)
[2022-11-02] MEDS ORDERED: cefTRIAXone 1,000 MG VIAL (IM USE) IM STA (09:52)
--- NOTE | 2022-11-02 09:56 | ED ---
ENT HPI - General Chief complaint: Dental/Oral Stated complaint: Dentist sent Time Seen by Provider: 11/02/22 09:02 Source: patient, RN notes reviewed Mode of arrival: ambulatory Limitations: no limitations - History of Present Illness Initial comments: 42-year-old male presents emergency Department chief complaint pain, facial swelling. Patient is scheduled to have his tooth extracted in 2 days. Patient states that he started having increasing pain and discomfort. He called his dentist recommended come emergency department. He was not evaluated by the dentist. Patient is currently on amoxicillin is not taking anything else. States that he's had no relief with Tylenol Motrin states he had been more difficulty swallowing own secretions or food. Patient has NO KNOWN DRUG ALLERGIES. Patient offers no complaints - Related Data Home Medications Medication Instructions Recorded Confirmed Amoxic-Pot Clav 875-125Mg 1 tab PO BID 05/17/20 05/17/20 [Augmentin 875-125] Ibuprofen [Motrin Ib] 400 mg PO TID PRN 05/17/20 05/17/20 Ibuprofen [Motrin Ib] 600 mg PO ONCE PRN 05/17/20 05/17/20 Metoprolol Tartrate [Lopressor] 75 mg PO BID 05/17/20 05/17/20 Warfarin [Coumadin] 5 mg PO HS 05/17/20 05/17/20 busPIRone HCl [Buspar] 10 mg PO BID 05/17/20 05/17/20 cloNIDine HCL [Catapres] 0.2 mg PO ONCE PRN 05/17/20 05/17/20 Previous Rx's Medication Instructions Recorded lisinopriL [Prinivil] 10 mg PO DAILY #30 tab 02/21/20 Meclizine [Antivert] 25 mg PO TID PRN #15 tab 12/31/21 Allergies Allergy/AdvReac Type Severity Reaction Status Date / Time No Known Allergies Allergy Verified 11/02/22 09:02 Review of Systems ROS Statement: Those systems with pertinent positive or pertinent negative responses have been documented in the HPI. ROS Other: All systems not noted in ROS Statement are negative. Past Medical History Past Medical History: Hypertension Additional Past Medical History / Comment(s): CONGENITAL AORTIC VALVE STENOSIS, congenital heart disease History of Any Multi-Drug Resistant Organisms: None Reported Past Surgical History: Cardiac Valve Replacement, Cholecystectomy, Coronary Bypass/CABG Additional Past Surgical History / Comment(s): 1991 & 1996 AORTIC VALVE REPLACED and again in 2015,CYST REMOVED FROM THROAT Past Anesthesia/Blood Transfusion Reactions: No Reported Reaction Past Psychological History: No Psychological Hx Reported Smoking Status: Current every day smoker Past Alcohol Use History: None Reported, Rare Past Drug Use History: Marijuana, Methamphetamine - Past Family History Mother Family Medical History: Diabetes Mellitus Father History Unknown: Yes General Exam Limitations: no limitations General appearance: alert, in no apparent distress Head exam: Present: atraumatic, normocephalic, normal inspection Eye exam: Present: normal appearance, PERRL, EOMI. Absent: scleral icterus, conjunctival injection, periorbital swelling ENT exam: Present: mucous membranes moist, TM's normal bilaterally. Absent: normal oropharynx (Dental erosion right lower, there is swelling of the gingival area), mucous membranes dry Neck exam: Present: normal inspection, full ROM. Absent: tenderness, meningismus, lymphadenopathy Respiratory exam: Present: normal lung sounds bilaterally. Absent: respiratory distress, wheezes, rales, rhonchi, stridor Cardiovascular Exam: Present: regular rate, normal rhythm, normal heart sounds. Absent: systolic murmur, diastolic murmur, rubs, gallop, clicks Course Vital Signs 11/02/22 08:59 Temperature 97.5 F L Pulse Rate 106 H Respiratory 18 Rate Blood Pressure 159/116 O2 Sat by Pulse 99 Oximetry Medical Decision Making - Medical Decision Making Was pt. sent in by a medical professional or institution (, PA, CATERING SOUS CHEF, urgent care, hospital, or usp...) When possible be specific @ -Dentist Did you speak to anyone other than the patient for history (EMS, parent, family, police, friend...)? What history was obtained from this source @ -No Did you review nursing and triage notes (agree or disagree)? Why? @ -I reviewed and agree with nursing and triage notes Were old charts reviewed (outside hosp., previous admission, EMS record, old EKG, old radiological studies, urgent care reports/EKG's, usp records)? Report findings @ -No old charts were reviewed Differential Diagnosis (chest pain, altered mental status, abdominal pain women, abdominal pain men, vaginal bleeding, weakness, fever, dyspnea, syncope, headache, dizziness, GI bleed, back pain, seizure, CVA, palpatations, mental health, musculoskeletal)? @ -Dental abscess, dental infection, dental caries, dental fracture EKG interpreted by me (3pts min.). @ -As above X-rays interpreted by me (1pt min.). @ -None done CT interpreted by me (1pt min.). @ -None done U/S interpreted by me (1pt. min.). @ -None done What testing was considered but not performed or refused? (CT, X-rays, U/S, labs)? Why? @ -None What meds were considered but not given or refused? Why? @ -None Did you discuss the management of the patient with other professionals (professionals i.e. Dr., PA, CAT[employer]ING [employer]F, lab, RT, psych nurse, psychologist social, toll lineman, teacher, chief credit officer, case consultant)? Give summary @ -No Was smoking cessation discussed for >3mins.? @ -No Was critical care preformed (if so, how long)? @ -No Were there social determinants of health that impacted care today? How? (Homelessness, low income, unemployed, alcoholism, drug addiction, transportation, low edu. Level, literacy, decrease access to med. care, care home, rehab)? @ -No Was there de-escalation of care discussed even if they declined (Discuss DNR or withdrawal of care, Hospice)? DNR status @ -No What co-morbidities impacted this encounter? (DM, HTN, Smoking, COPD, CAD, Cancer, CVA, ARF, Chemo, Hep., AIDS, mental health diagnosis, sleep apnea, morbid obesity)? @ -None Was patient admitted / discharged? Hospital course, mention meds given and route, prescriptions, significant lab abnormalities, going to OR and other pertinent info. @ -Discharge patient was placed on clindamycin patient advise continue oral rinses, provided pain relief. Patient scheduled for tooth extraction Undiagnosed new problem with uncertain prognosis? @ -No Drug Therapy requiring intensive monitoring for toxicity (Heparin, Nitro, Insulin, Cardizem)? @ -No Were any procedures done? @ -No Diagnosis/symptom? @ -Dental infection Acute, or Chronic, or Acute on Chronic? @ -Acute Uncomplicated (without systemic symptoms) or Complicated (systemic symptoms)? @ -Uncomplicated Side effects of treatment? @ -No Exacerbation, Progression, or Severe Exacerbation? @ -No Poses a threat to life or bodily function? How? (Chest pain, [place], [place], pneumonia, PE, COPD, DKA, ARF, appy, cholecystitis, CVA, Diverticulitis, Homicidal, Suicidal, threat to staff... and all critical care pts) @ -No Disposition Clinical Impression: Dental caries, Dental abscess Disposition: HOME SELF-CARE Condition: Stable Instructions (If sedation given, give patient instructions): Dental Abscess (ED) Additional Instructions: Please return to the Emergency Department if symptoms worsen or any other concerns. Is patient prescribed a controlled substance at d/c from ED?: No Referrals: Perri Zavaleta MD [Primary Care Provider] - 1-2 days Time of Disposition: 09:56
[2022-11-02 10:11] VITALS: BP 135/70; PULSE 84; TEMP 98.1
--- NOTE | 2022-11-02 10:15 | XR ---
EXAMINATION TYPE: XR mandible limited <4V, XR 2 views soft tissue neck DATE OF EXAM: 11/02/2022 COMPARISON: NONE HISTORY: 42-year-old male right-sided pain, right-sided tooth abscess FINDINGS: Mandible: Some dental amalgam involving either a left mandibular premolar or first molar. Prominent dental luna es involving the first right-sided mandibular molar. No sizable periapical lucency/abscess. Visualize d paranasal sinuses appear relatively clear. TMJs appear grossly intact. No acute fracture seen. Soft tissues of the neck: The nasopharynx and oropharyngeal airways are patent. Epiglottis within normal limits. No prevertebra l soft tissue swelling. No abnormal narrowing of the subglottic airway. IMPRESSION: 1. Mandible: Large dental caries involving a right mandibular molar. No sizable periapical lucency. 2. Neck: No specific abnormality seen.
== END 2022-11-02 10:10 | disposition home or self-care (01) ==
LOC: EC 08:58
DX: K02.9 Dental caries, unspecified (principal); K04.7 Periapical abscess without sinus; I10 Essential (primary) hypertension; F17.200 Nicotine dependence, unspecified, uncomplicated; F12.90 Cannabis use, unspecified, uncomplicated; Z79.02 Long term (current) use of antithrombotics/antiplatelets; Z79.899 Other long term (current) drug therapy
CPT/HCPCS: 99285; 96372 ×2; 70100; 70360; 99283; J0696

== ENCOUNTER 2023-02-18 19:18 | Emergency (ER) | payer OTHER ==
[2023-02-18 19:48] VITALS: RESP 18
--- NOTE | 2023-02-18 20:29 | ED ---
General Adult HPI - General Chief complaint: Recheck/Abnormal Lab/Rx Stated complaint: INR Time Seen by Provider: 02/18/23 20:26 Source: patient Mode of arrival: ambulatory Limitations: no limitations - History of Present Illness Initial comments: Patient presents to the ED with his girlfriend for evaluation. Patient states that he has been out of his warfarin, lisinopril and metoprolol for the past week or so. Patient states that he is having issues with his insurance covering the cost of his medications. He states that when this has happened to him in the past he has come to the ED for "an emergency prescription". Patient states that he is on warfarin due to having an aortic valve replacement. Patient states that he had a mild, brief bout of epistaxis earlier today, so he thought he should come to the ED to have his INR checked. Patient denies trauma or injury, any other site of bleeding, any pain, fever or chills, headache, nasal pain, chest pain or pressure, dyspnea, dizziness, abdominal pain, nausea or vomiting, bloody or melanotic stool, hematuria, or any other symptoms or complaints. - Related Data Previous Rx's Medication Instructions Recorded Lisinopril-Hctz 20-25 mg 1 tab PO DAILY #7 tab 02/18/23 [Zestoretic 20-25] Metoprolol Tartrate [Lopressor] 100 mg PO BID #14 tab 02/18/23 Warfarin Sodium 4 mg PO Q48H #7 tab 02/18/23 Warfarin [Coumadin] 2 mg PO Q48H #7 tab 02/18/23 Allergies Allergy/AdvReac Type Severity Reaction Status Date / Time No Known Allergies Allergy Verified 02/18/23 21:55 Review of Systems ROS Statement: Those systems with pertinent positive or pertinent negative responses have been documented in the HPI. ROS Other: All systems not noted in ROS Statement are negative. Past Medical History Past Medical History: Hypertension Additional Past Medical History / Comment(s): CONGENITAL AORTIC VALVE STENOSIS, congenital heart disease History of Any Multi-Drug Resistant Organisms: None Reported Past Surgical History: Cardiac Valve Replacement, Cholecystectomy, Coronary Bypass/CABG Additional Past Surgical History / Comment(s): 1991 & 1996 AORTIC VALVE REPLACED and again in 2014,CYST REMOVED FROM THROAT Past Anesthesia/Blood Transfusion Reactions: No Reported Reaction Past Psychological History: No Psychological Hx Reported Smoking Status: Current every day smoker Past Alcohol Use History: None Reported Past Drug Use History: Marijuana, Methamphetamine - Past Family History Mother Family Medical History: Diabetes Mellitus Father History Unknown: Yes General Exam Limitations: no limitations General appearance: alert, in no apparent distress Eye exam: Present: normal appearance ENT exam: Present: normal oropharynx, mucous membranes moist, other (normal nasal cavities) Respiratory exam: Present: normal lung sounds bilaterally. Absent: respiratory distress, wheezes, rales, rhonchi, stridor Cardiovascular Exam: Present: regular rate, normal rhythm, normal heart sounds, other (normal radial pulses bilaterally) Neurological exam: Present: alert, oriented X3 Skin exam: Present: warm, dry, intact Course Vital Signs 02/18/23 19:42 Temperature 98.4 F Pulse Rate 79 Respiratory 18 Rate Blood Pressure 176/117 O2 Sat by Pulse 98 Oximetry Medical Decision Making - Medical Decision Making Was pt. sent in by a medical professional or institution (Dr. PA, VENDING ENTERPRISES SUPERVISOR, urgent care, hospital, or fci...) When possible be specific @ -[No] Did you speak to anyone other than the patient for history (EMS, parent, family, police, friend...)? What history was obtained from this source @ -[No] Did you review nursing and triage notes (agree or disagree)? Why? @ -[I reviewed and agree with nursing and triage notes] Were old charts reviewed (outside hosp., previous admission, EMS record, old EKG, old radiological studies, urgent care reports/EKG's, [facility]ci records)? Report findings @ -[No old charts were reviewed] Differential Diagnosis (chest pain, altered mental status, abdominal pain women, abdominal pain men, vaginal bleeding, weakness, fever, dyspnea, syncope, headache, dizziness, GI bleed, back pain, seizure, CVA, palpatations, mental health, musculoskeletal)? @ -[epistaxis, coagulopathy, anemia, supratherapeutic INR, medication refill] EKG interpreted by me (3pts min.). @ -[none done] X-rays interpreted by me (1pt min.). @ -[None done] CT interpreted by me (1pt min.). @ -[None done] U/S interpreted by me (1pt. min.). @ -[None done] What testing was considered but not performed or refused? (CT, X-rays, U/S, labs)? Why? @ -[None] What meds were considered but not given or refused? Why? @ -[None] Did you discuss the management of the patient with other professionals (professionals i.e. , PA, VENDING ENTERPRISES SUPERVISOR, lab, RT, psych nurse, social human services assistants, traffic enumerator, teacher, patient safety officer, case maker)? Give summary @ -[No] Was smoking cessation discussed for >3mins.? @ -[No] Was critical care preformed (if so, how long)? @ -[No] Were there social determinants of health that impacted care today? How? (Homelessness, low income, unemployed, alcoholism, drug addiction, transportatio n, low edu. Level, literacy, decrease access to med. care, prison, rehab)? @ -[No] Was there de-escalation of care discussed even if they declined (Discuss DNR or withdrawal of care, Hospice)? DNR status @ -[No] What co-morbidities impacted this encounter? (DM, HTN, Smoking, COPD, CAD, Cancer, CVA, ARF, Chemo, Hep., AIDS, mental health diagnosis, sleep apnea, morbid obesity)? @ -[None] Was patient admitted / discharged? Hospital course, mention meds given and route, prescriptions, significant lab abnormalities, going to OR and other pertinent info. @ -[Patient has had no active epistaxis while in the ED. Patient denies development of any new symptoms while in the ED. Patient's labs are fairly unremarkable, including a normal INR level. Patient's medication refills were provided per his request prescriptions were [facility] to [facility] pharmacy. I have prescribed 2 weeks worth of his warfarin, and 1 week worth of the rest of his medications. Patient was instructed to follow up closely with his primary care provider. Patient feels comfortable with this plan.] Undiagnosed new problem with uncertain prognosis? @ -[No] Drug Therapy requiring intensive monitoring for toxicity (Heparin, Nitro, Insulin, Cardizem)? @ -[No] Were any procedures done? @ -[No] Diagnosis/symptom? @ -[epistaxis] Acute, or Chronic, or Acute on Chronic? @ -[acute] Uncomplicated (without systemic symptoms) or Complicated (systemic symptoms)? @ -[uncomplicated] Side effects of treatment? @ -[No] Exacerbation, Progression, or Severe Exacerbation? @ -[No] Poses a threat to life or bodily function? How? (Chest pain, [place], [place], pneumonia, PE, COPD, DKA, ARF, appy, cholecystitis, CVA, Diverticulitis, Homicidal, Suicidal, threat to staff... and all critical care pts) @ -[No] Diagnosis/symptom? @ -[medication refill] Acute, or Chronic, or Acute on Chronic? @ -[default] Uncomplicated (without systemic symptoms) or Complicated (systemic symptoms)? @ -[default] Side effects of treatment? @ -[none] Exacerbation, Progression, or Severe Exacerbation] @ -[no] Poses a threat to life or bodily function? @ -[no] - Lab Data Result diagrams: 02/18/23 20:44 02/18/23 20:44 Lab Results 02/18/23 02/18/23 02/18/23 Range/Units 20:44 20:44 20:44 WBC 6.7 (3.8-10.6) k/uL RBC 4.85 (4.30-5.90) m/uL Hgb 14.0 (13.0-17.5) gm/dL Hct 42.0 (39.0-53.0) % MCV 86.6 (80.0-100.0) fL MCH 28.9 (25.0-35.0) pg MCHC 33.3 (31.0-37.0) g/dL RDW 15.0 (11.5-15.5) % Plt Count 249 (150-450) k/uL MPV 8.4 Neutrophils % 63 % Lymphocytes % 23 % Monocytes % 6 % Eosinophils % 5 % Basophils % 1 % Neutrophils # 4.2 (1.3-7.7) k/uL Lymphocytes # 1.5 (1.0-4.8) k/uL Monocytes # 0.4 (0-1.0) k/uL Eosinophils # 0.4 (0-0.7) k/uL Basophils # 0.0 (0-0.2) k/uL PT 10.4 (9.0-12.0) sec INR 1.0 (<1.2) APTT 25.0 (22.0-30.0) sec Sodium 138 (137-145) mmol/L Potassium 4.0 (3.5-5.1) mmol/L Chloride 104 (98-107) mmol/L Carbon Dioxide 25 (22-30) mmol/L Anion Gap 9 mmol/L BUN 15 (9-20) mg/dL Creatinine 0.99 (0.66-1.25) mg/dL Est GFR (CKD-EPI)AfAm >90 (>60 ml/min/1.73 sqM) Est GFR (CKD-EPI)NonAf >90 (>60 ml/min/1.73 sqM) Glucose 135 H (74-99) mg/dL Calcium 9.2 (8.4-10.2) mg/dL Total Bilirubin 1.0 (0.2-1.3) mg/dL AST 42 (17-59) U/L ALT 27 (4-49) U/L Alkaline Phosphatase 76 (38-126) U/L Total Protein 7.3 (6.3-8.2) g/dL Albumin 4.2 (3.5-5.0) g/dL Disposition Clinical Impression: Encounter for medication refill, Epistaxis Disposition: HOME SELF-CARE Condition: Stable Instructions (If sedation given, give patient instructions): Nosebleed (ED), Medicine Refill (ED) Additional Instructions: Return to the ER immediately should you develop any significant pain, increased bleeding, feeling dizzy or faint, shortness of breath, or new or worsening symptoms. Follow up closely with your primary care provider. Prescriptions: Warfarin [Coumadin] 2 mg PO Q48H #7 tab Metoprolol Tartrate [Lopressor] 100 mg PO BID #14 tab Warfarin Sodium 4 mg PO Q48H #7 tab Lisinopril-Hctz 20-25 mg [Zestoretic 20-25] 1 tab PO DAILY #7 tab Is patient prescribed a controlled substance at d/c from ED?: No Referrals: Perri Zavaleta MD [Primary Care Provider] - 1-2 days Time of Disposition: 22:47
[2023-02-18 21:07] LABS: Basophils % (A) 1 %; Eosinophils # (A) 0.4 k/uL (0-0.7); Eosinophils % (A) 5 %; Lymphocytes # (A) 1.5 k/uL (1.0-4.8); Lymphocytes % (A) 23 %; MCH 28.9 pg (25.0-35.0); MCHC 33.3 g/dL (31.0-37.0); MCV 86.6 fL (80.0-100.0); Mean Platelet Volume 8.4; Monocytes # (A) 0.4 k/uL (0-1.0); Monocytes % (A) 6 %; Neutrophils # (A) 4.2 k/uL (1.3-7.7); Neutrophils % (A) 63 %; Platelet Count 249 k/uL (150-450); RBC 4.85 m/uL (4.30-5.90); WBC 6.7 k/uL (3.8-10.6)
[2023-02-18 21:10] LABS: ALT 27 U/L (4-49); AST 42 U/L (17-59); African American GFR (CKD) >90 (>60 ml/min/1.73 sqM); Albumin 4.2 g/dL (3.5-5.0); Alkaline Phosphatase 76 U/L (38-126); Anion Gap 9 mmol/L; Blood Urea Nitrogen 15 mg/dL (9-20); Calcium 9.2 mg/dL (8.4-10.2); Carbon Dioxide 25 mmol/L (22-30); Chloride 104 mmol/L (98-107); Glucose 135 mg/dL (74-99); Non-African American GFR(CKD) >90 (>60 ml/min/1.73 sqM); Sodium 138 mmol/L (137-145); Total Protein 7.3 g/dL (6.3-8.2)
[2023-02-18 21:18] LABS: Prothrombin Time 10.4 sec (9.0-12.0)
[2023-02-18 22:57] VITALS: BP 158/102; PULSE 63; TEMP 98
== END 2023-02-18 22:56 | disposition home or self-care (01) ==
LOC: EC 19:18
DX: R04.0 Epistaxis (principal); Z76.0 Encounter for issue of repeat prescription; I10 Essential (primary) hypertension; F17.200 Nicotine dependence, unspecified, uncomplicated; F12.90 Cannabis use, unspecified, uncomplicated; F15.90 Other stimulant use, unspecified, uncomplicated
CPT/HCPCS: 36415; 80053; 85025; 85610; 85730; 99283

== ENCOUNTER 2023-09-15 10:01 | Emergency (ER) | payer OTHER ==
[2023-09-15] MEDS: SODIUM CHLORIDE 0.9% 500 ML 500 ML IV STA (11:19)
--- NOTE | 2023-09-15 11:26 | ED ---
Abdominal Pain HPI - General Chief Complaint: Abdominal Pain Stated Complaint: Abdominal Pain Time Seen by Provider: 09/15/23 10:57 Source: patient, RN notes reviewed Mode of arrival: ambulatory Limitations: no limitations - History of Present Illness Initial Comments: 43-year-old male with history of cholecystectomy, fatty liver disease and CAD presenting with abdominal pain x 3 weeks with diarrhea. States the abdominal pain is intermittent and sharp and is worse with lying flat. The pain is worse with fatty foods and endorses a 7 out of 10 pain currently. States this morning his stool was yellow in color which alarmed him to come to the ER. Denies recent antibiotic use or recent travel. Denies fevers, chest pain, dysuria, urinary frequency, blood in stool, vomiting. - Related Data Previous Rx's Medication Instructions Recorded Lisinopril-Hctz 20-25 mg 1 tab PO DAILY #7 tab 02/18/23 [Zestoretic 20-25] Metoprolol Tartrate [Lopressor] 100 mg PO BID #14 tab 02/18/23 Warfarin Sodium 4 mg PO Q48H #7 tab 02/18/23 Warfarin [Coumadin] 2 mg PO Q48H #7 tab 02/18/23 Allergies Allergy/AdvReac Type Severity Reaction Status Date / Time No Known Allergies Allergy Verified 09/15/23 10:12 Review of Systems ROS Statement: Those systems with pertinent positive or pertinent negative responses have been documented in the HPI. ROS Other: All systems not noted in ROS Statement are negative. Past Medical History Past Medical History: CVA/TIA, Hypertension Additional Past Medical History / Comment(s): CONGENITAL AORTIC VALVE STENOSIS, congenital heart disease History of Any Multi-Drug Resistant Organisms: None Reported Past Surgical History: Cardiac Valve Replacement, Cholecystectomy, Coronary Bypass/CABG, Heart Catheterization With Stent Additional Past Surgical History / Comment(s): 1991 & 1996 AORTIC VALVE REPLACED and again in 2014,CYST REMOVED FROM THROAT Past Anesthesia/Blood Transfusion Reactions: No Reported Reaction Past Psychological History: No Psychological Hx Reported Smoking Status: Current every day smoker Past Alcohol Use History: None Reported Past Drug Use History: Marijuana, Methamphetamine - Past Family History Mother Family Medical History: Diabetes Mellitus Father History Unknown: Yes General Exam Limitations: no limitations General appearance: alert, in no apparent distress Eye exam: Present: normal appearance, PERRL, EOMI. Absent: scleral icterus, conjunctival injection, periorbital swelling Respiratory exam: Present: normal lung sounds bilaterally. Absent: respiratory distress, wheezes, rales, rhonchi, stridor Cardiovascular Exam: Present: regular rate, normal rhythm, normal heart sounds. Absent: systolic murmur, diastolic murmur, rubs, gallop, clicks GI/Abdominal exam: Present: soft, tenderness (Moderate tenderness to palpation and left lower quadrant), normal bowel sounds. Absent: distended, guarding, rebound, rigid Back exam: Absent: CVA tenderness (L), rash noted Course Vital Signs 09/15/23 10:10 Temperature 98.4 F Pulse Rate 87 Respiratory 20 Rate Blood Pressure 135/101 O2 Sat by Pulse 99 Oximetry Medical Decision Making - Medical Decision Making Was pt. sent in by a medical professional or institution (, PA, DRILLING ENGINEER, urgent care, hospital, or skilled nursing...) When possible be specific @ -No Did you speak to anyone other than the patient for history (EMS, parent, family, police, friend...)? What history was obtained from this source @ -No Did you review nursing and triage notes (agree or disagree)? Why? @ -I reviewed and agree with nursing and triage notes Were old charts reviewed (outside hosp., previous admission, EMS record, old EKG, old radiological studies, urgent care reports/EKG's, skilled nursing records)? Report findings @ -No old charts were reviewed Differential Diagnosis (chest pain, altered mental status, abdominal pain women, abdominal pain men, vaginal bleeding, weakness, fever, dyspnea, syncope, headache, dizziness, GI bleed, back pain, seizure, CVA, palpatations, mental health, musculoskeletal)? @ -Differential Abdominal Pain Men: Appendicitis, cholecystitis, diverticulosis, ischemic bowel, pancreatitis, hepatitis, UTI, gastroenteritis, AAA, incarcerated hernia, bowel obstruction, constipation, inflammatory bowel, hepatitis, peptic ulcer disease, splenic infarction, perforated viscus, testicular torsion, this is not meant to be an all-inclusive list EKG interpreted by me (3pts min.). @ -None X-rays interpreted by me (1pt min.). @ -None done CT interpreted by me (1pt min.). @ -Acute mild diverticulitis U/S interpreted by me (1pt. min.). @ -None done What testing was considered but not performed or refused? (CT, X-rays, U/S, labs)? Why? @ -None What meds were considered but not given or refused? Why? @ -Toradol not given due to patient on blood thinners Did you discuss the management of the patient with other professionals (professionals i.e. , PA, DRILLING ENGINEER, lab, RT, psych nurse, social science instructor, mica parts sprayer, teacher, credit risk review officer, case repairer)? Give summary @ -No Was smoking cessation discussed for >3mins.? @ -No Was critical care preformed (if so, how long)? @ -No Were there social determinants of health that impacted care today? How? (Homelessness, low income, unemployed, alcoholism, drug addiction, transpor tation, low edu. Level, literacy, decrease access to med. care, nursing home, rehab)? @ -No Was there de-escalation of care discussed even if they declined (Discuss DNR or withdrawal of care, Hospice)? DNR status @ -No What co-morbidities impacted this encounter? (DM, HTN, Smoking, COPD, CAD, Cancer, CVA, ARF, Chemo, Hep., AIDS, mental health diagnosis, sleep apnea, morbid obesity)? @ -None Was patient admitted / discharged? Hospital course, mention meds given and route, prescriptions, significant lab abnormalities, going to OR and other pertinent info. @ -Patient was discharged. Patient was seen and examined for diarrhea and abdominal pain. Patient was tender in left lower quadrants. CT revealed acute mild diverticulitis. Lab work was unremarkable besides elevated bilirubin, AST, ALT. Patient was given fluids, Zofran, and morphine for pain. Discussed with patient that because he is afebrile, tolerating orals, and pain is controlled that diverticulitis can be managed outpatient with antibiotics and supportive treatment. Return symptoms discussed. Patient discharged in stable condition. Case discussed with Dr. Colon. Undiagnosed new problem with uncertain prognosis? @ -No Drug Therapy requiring intensive monitoring for toxicity (Heparin, Nitro, Insulin, Cardizem)? @ -No Were any procedures done? @ -No Diagnosis/symptom? @ -Acute diverticulitis Acute, or Chronic, or Acute on Chronic? @ -Acute Uncomplicated (without systemic symptoms) or Complicated (systemic symptoms)? @ -Uncomplicated Side effects of treatment? @ -No Exacerbation, Progression, or Severe Exacerbation? @ -No Poses a threat to life or bodily function? How? (Chest pain, [place], [place], pneumonia, PE, COPD, DKA, ARF, appy, cholecystitis, CVA, Diverticulitis, Homicidal, Suicidal, threat to staff... and all critical care pts) @ -No - Lab Data Result diagrams: 09/15/23 11:18 09/15/23 11:18 Lab Results 09/15/23 09/15/23 09/15/23 Range/Units 11:18 11:18 12:55 WBC 10.4 (3.8-10.6) k/uL RBC 4.79 (4.30-5.90) m/uL Hgb 15.0 (13.0-17.5) gm/dL Hct 41.9 (39.0-53.0) % MCV 87.5 (80.0-100.0) fL MCH 31.4 (25.0-35.0) pg MCHC 35.9 (31.0-37.0) g/dL RDW 14.0 (11.5-15.5) % Plt Count 239 (150-450) k/uL MPV 7.8 Neutrophils % 80 % Lymphocytes % 9 % Monocytes % 6 % Eosinophils % 3 % Basophils % 0 % Neutrophils # 8.3 H (1.3-7.7) k/uL Lymphocytes # 0.9 L (1.0-4.8) k/uL Monocytes # 0.6 (0-1.0) k/uL Eosinophils # 0.3 (0-0.7) k/uL Basophils # 0.0 (0-0.2) k/uL Sodium 138 (137-145) mmol/L Potassium 4.1 (3.5-5.1) mmol/L Chloride 104 (98-107) mmol/L Carbon Dioxide 27 (22-30) mmol/L Anion Gap 7 mmol/L BUN 12 (9-20) mg/dL Creatinine 0.99 (0.66-1.25) mg/dL Est GFR (CKD-EPI)AfAm >90 (>60 ml/min/1.73 sqM) Est GFR (CKD-EPI)NonAf >90 (>60 ml/min/1.73 sqM) Glucose 103 H (74-99) mg/dL Calcium 9.2 (8.4-10.2) mg/dL Total Bilirubin 2.0 H (0.2-1.3) mg/dL AST 68 H (17-59) U/L ALT 82 H (4-49) U/L Alkaline Phosphatase 81 (38-126) U/L Total Protein 7.8 (6.3-8.2) g/dL Albumin 4.6 (3.5-5.0) g/dL Lipase 38 (23-300) U/L Urine Color Yellow Urine Appearance Clear (Clear) Urine pH 6.0 (5.0-8.0) Ur Specific [place] 1.024 (1.001-1.035) Urine Protein Trace H (Negative) Urine Glucose (UA) Negative (Negative) Urine Ketones Negative (Negative) Urine Blood Negative (Negative) Urine Nitrite Negative (Negative) Urine Bilirubin Negative (Negative) Urine Urobilinogen <2.0 (<2.0) mg/dL Ur Leukocyte Esterase Negative (Negative) Disposition Clinical Impression: Diverticulitis Disposition: HOME SELF-CARE Condition: Stable Additional Instructions: Please return to the Emergency Department if symptoms worsen or any other concerns. Is patient prescribed a controlled substance at d/c from ED?: No Referrals: None,Stated [Primary Care Provider] - 1-2 days Time of Disposition: 15:40
[2023-09-15 11:38] LABS: Basophils % (A) 0 %; Eosinophils # (A) 0.3 k/uL (0-0.7); Eosinophils % (A) 3 %; HCT 41.9 % (39.0-53.0); Lymphocytes # (A) 0.9 k/uL (1.0-4.8); Lymphocytes % (A) 9 %; MCH 31.4 pg (25.0-35.0); MCHC 35.9 g/dL (31.0-37.0); MCV 87.5 fL (80.0-100.0); Mean Platelet Volume 7.8; Monocytes # (A) 0.6 k/uL (0-1.0); Monocytes % (A) 6 %; Neutrophils # (A) 8.3 k/uL (1.3-7.7); Neutrophils % (A) 80 %; Platelet Count 239 k/uL (150-450); RBC 4.79 m/uL (4.30-5.90); WBC 10.4 k/uL (3.8-10.6)
[2023-09-15 11:40] LABS: ALT 82 U/L (4-49); AST 68 U/L (17-59); African American GFR (CKD) >90 (>60 ml/min/1.73 sqM); Albumin 4.6 g/dL (3.5-5.0); Alkaline Phosphatase 81 U/L (38-126); Anion Gap 7 mmol/L; Blood Urea Nitrogen 12 mg/dL (9-20); Calcium 9.2 mg/dL (8.4-10.2); Carbon Dioxide 27 mmol/L (22-30); Chloride 104 mmol/L (98-107); Glucose 103 mg/dL (74-99); Lipase 38 U/L (23-300); Non-African American GFR(CKD) >90 (>60 ml/min/1.73 sqM); Potassium 4.1 mmol/L (3.5-5.1); Sodium 138 mmol/L (137-145); Total Protein 7.8 g/dL (6.3-8.2)
[2023-09-15 12:59] LABS: Appearance,Urine Clear (Clear); Bilirubin,Urine Negative (Negative); Blood,Urine Negative (Negative); Color,Urine Yellow; Glucose,Urine (UA) Negative (Negative); Ketones,Urine Negative (Negative); Leukocyte Esterase,Urine Negative (Negative); Nitrite,Urine Negative (Negative); Protein,Urine Trace (Negative); Specific Gravity,Urine 1.024 (1.001-1.035); Urobilinogen,Urine <2.0 mg/dL (<2.0)
[2023-09-15] MEDS: MORPHINE SULFATE 4 MG/ML SYRINGE IVP STA (14:01)
--- NOTE | 2023-09-15 14:42 | CT ---
EXAMINATION TYPE: CT abdomen pelvis w con DATE OF EXAM: 09/15/2023 COMPARISON: None HISTORY: lower abdominal pain , diarrhea x3 weeks CT DLP: 1555 mGycm Automated exposure control for dose reduction was used. TECHNIQUE: Helical acquisition of images was performed from the lung bases through the pelvis. CONTRAST: Performed without Oral Contrast and with IV Contrast, patient injected with 100 mL of Isovue 300. FINDINGS: The lung bases are clear. There is surgical absence of the gallbladder. There is no biliary ductal dilatation. There is no focal mass or organomegaly involving the liver, pancreas, spleen or adrenal glands. There is no solid renal mass or hydronephrosis and there is homogeneous contrast enhancement of the r enal parenchyma. The caliber the abdominal aorta is normal is no retroperitoneal adenopathy or hemorr zakia. The bowel loops are normal in caliber and there is no evidence of dilatation or obstruction. There ar e multiple diverticulum of the descending and sigmoid colon and there are inflammatory changes in the mesentery adjacent to the sigmoid colon consistent with acute diverticulitis. There is no abscess. T here is no free intraperitoneal air or fluid. No pelvic mass, free fluid, abscess or adenopathy. The osseous structures and soft tissues are intact. IMPRESSION: Mild acute diverticulitis of the sigmoid colon as described above.
[2023-09-15 16:59] VITALS: BP 138/100; PULSE 64; RESP 16; TEMP 98
== END 2023-09-15 16:35 | disposition home or self-care (01) ==
LOC: EC 10:01
DX: K57.32 Diverticulitis of large intestine without perforation or abscess without bleeding (principal); F17.200 Nicotine dependence, unspecified, uncomplicated; F12.90 Cannabis use, unspecified, uncomplicated; F15.90 Other stimulant use, unspecified, uncomplicated
CPT/HCPCS: 36415; 80053; 83690; 85025; 81003; 74177; 99285; 96374; J2270; Q9967

== ENCOUNTER 2023-10-12 17:32 | Emergency (ER) | payer OTHER ==
[2023-10-12 18:07] VITALS: RESP 18; TEMP 99
--- NOTE | 2023-10-12 18:56 | XR ---
EXAMINATION TYPE: XR KUB DATE OF EXAM: 10/12/2023 6:20 PM CLINICAL INDICATION:Male, 43 years old with history of abdominal pain; COMPARISON: None. TECHNIQUE: One radiographic view of the abdomen was obtained. FINDINGS: The bowel gas pattern is nonspecific without dilated loops of small or large bowel. There i s no evidence for organomegaly or pneumoperitoneum. The osseous structures are intact. No abnormal calcifications are present. Fecal material and gas are demonstrated throughout the colon and rectum. Sternotomy wires are present. IMPRESSION: Nonspecific bowel gas pattern without radiographic evidence for acute process.
[2023-10-12 19:07] LABS: Basophils % (A) 0 %; Eosinophils # (A) 0.2 k/uL (0-0.7); Eosinophils % (A) 3 %; HCT 39.6 % (39.0-53.0); HGB 13.4 gm/dL (13.0-17.5); Lymphocytes # (A) 0.7 k/uL (1.0-4.8); Lymphocytes % (A) 8 %; MCH 30.3 pg (25.0-35.0); MCHC 33.9 g/dL (31.0-37.0); MCV 89.4 fL (80.0-100.0); Mean Platelet Volume 8.1; Monocytes # (A) 0.7 k/uL (0-1.0); Monocytes % (A) 8 %; Neutrophils % (A) 80 %; Platelet Count 224 k/uL (150-450); RBC 4.43 m/uL (4.30-5.90); RDW 13.9 % (11.5-15.5); WBC 8.7 k/uL (3.8-10.6)
[2023-10-12 19:17] LABS: ALT 49 U/L (4-49); AST 43 U/L (17-59); African American GFR (CKD) >90 (>60 ml/min/1.73 sqM); Albumin 4.2 g/dL (3.5-5.0); Alkaline Phosphatase 59 U/L (38-126); Amylase 53 U/L (30-110); Anion Gap 4 mmol/L; Blood Urea Nitrogen 13 mg/dL (9-20); Calcium 8.9 mg/dL (8.4-10.2); Carbon Dioxide 31 mmol/L (22-30); Chloride 103 mmol/L (98-107); Glucose 97 mg/dL (74-99); Lipase 51 U/L (23-300); Non-African American GFR(CKD) >90 (>60 ml/min/1.73 sqM); Potassium 4.3 mmol/L (3.5-5.1); Sodium 138 mmol/L (137-145); Total Bilirubin 1.3 mg/dL (0.2-1.3)
--- NOTE | 2023-10-12 20:47 | ED ---
Abdominal Pain HPI - General Chief Complaint: Abdominal Pain Stated Complaint: Abn Labs Time Seen by Provider: 10/12/23 20:08 Source: patient Mode of arrival: ambulatory Limitations: no limitations - History of Present Illness Initial Comments: 43-year-old male presenting to the ED with chief complaint of abnormal labs. Patient previously seen here on 09/15/23 given a diagnosis of diverticulitis. Reports since then symptoms have not completely resolved and has been on repeat course of Augmentin with additional Flagyl which patient reports she has been taking as prescribed. States today during usual follow-up with his PCP, his liver enzymes and kidney function were "through the roof" and was instructed to present to the ED for further evaluation. Patient does report continued pain in his left lower abdomen however since onset he reports pain has not significantly worsened. Also notes some continued nonbloody diarrhea with this. Fever or c hills. No chest pain shortness of breath. No other complaints at this time. - Related Data Home Medications Medication Instructions Recorded Confirmed Warfarin Sodium 6 mg PO WETH 09/15/23 09/15/23 Warfarin Sodium 8 mg PO SUMOFR09/15/23 09/15/23 Previous Rx's Medication Instructions Recorded Metoprolol Tartrate [Lopressor] 100 mg PO BID #14 tab 02/18/23 Amoxic-Pot Clav 875-125Mg 1 tab PO Q12HR #20 tab 09/15/23 [Augmentin 875-125] Allergies Allergy/AdvReac Type Severity Reaction Status Date / Time No Known Allergies Allergy Verified 10/12/23 17:37 Review of Systems ROS Statement: Those systems with pertinent positive or pertinent negative responses have been documented in the HPI. ROS Other: All systems not noted in ROS Statement are negative. Past Medical History Past Medical History: CVA/TIA, Hypertension Additional Past Medical History / Comment(s): CONGENITAL AORTIC VALVE STENOSIS, congenital heart disease History of Any Multi-Drug Resistant Organisms: None Reported Past Surgical History: Cardiac Valve Replacement, Cholecystectomy, Coronary Bypass/CABG, Heart Catheterization With Stent Additional Past Surgical History / Comment(s): 1991 & 1996 AORTIC VALVE REPLACED and again in 2014,CYST REMOVED FROM THROAT Past Anesthesia/Blood Transfusion Reactions: No Reported Reaction Past Psychological History: No Psychological Hx Reported Smoking Status: Former smoker Past Alcohol Use History: None Reported Past Drug Use History: Marijuana - Past Family History Mother Family Medical History: Diabetes Mellitus Father History Unknown: Yes General Exam Limitations: no limitations General appearance: alert, in no apparent distress Eye exam: Present: normal appearance Neck exam: Present: normal inspection Respiratory exam: Present: normal lung sounds bilaterally Cardiovascular Exam: Present: regular rate, systolic murmur GI/Abdominal exam: Present: soft (Tenderness to palpation of the left lower quadrant without rebound guarding or rigidity. Bowel sounds present.) Neurological exam: Present: alert, oriented X3 Skin exam: Present: warm, dry Course Vital Signs 10/12/23 17:34 Temperature 99.0 F Pulse Rate 74 Respiratory 18 Rate Blood Pressure 160/97 O2 Sat by Pulse 100 Oximetry Medical Decision Making - Medical Decision Making Was pt. sent in by a medical professional or institution (, PA, DISABILITY AIDE, urgent care, hospital, or jail...) When possible be specific @ -No Did you speak to anyone other than the patient for history (EMS, parent, family, police, friend...)? What history was obtained from this source @ -No Did you review nursing and triage notes (agree or disagree)? Why? @ -I reviewed and agree with nursing and triage notes Were old charts reviewed (outside hosp., previous admission, EMS record, old EKG, old radiological studies, urgent care reports/EKG's, jail records)? Report findings @ -Reviewed prior visit on 09/15/23. Patient diagnosed with diverticulitis and provided prescription for Augmentin. Differential Diagnosis (chest pain, altered mental status, abdominal pain women, abdominal pain men, vaginal bleeding, weakness, fever, dyspnea, syncope, headache, dizziness, GI bleed, back pain, seizure, CVA, palpatations, mental health, musculoskeletal)? @ -Differential Abdominal Pain Men: Appendicitis, cholecystitis, diverticulosis, ischemic bowel, pancreatitis, hepatitis, UTI, gastroenteritis, AAA, incarcerated hernia, bowel obstruction, constipation, inflammatory bowel, hepatitis, peptic ulcer disease, splenic infarction, perforated viscus, testicular torsion, this is not meant to be an all-inclusive list EKG interpreted by me (3pts min.). @ -EKG interpreted by me showing a sinus rhythm with a first-degree block with a MN interval of 260 ms. Nonspecific findings. QRS 135, QT/QTc 302/408. Does appear largely similar to prior. X-rays interpreted by me (1pt min.). @ -KUB of the abdomen interpreted me which revealed no evidence of acute finding. CT interpreted by me (1pt min.). @ -None done U/S interpreted by me (1pt. min.). @ -None done What testing was considered but not performed or refused? (CT, X-rays, U/S, labs)? Why? @ -None What meds were considered but not given or refused? Why? @ -None Did you discuss the management of the patient with other professionals (professionals i.e. , PA, DISABILITY AIDE, lab, RT, psych nurse, social security specialist, clinical team lead, teacher, disbursing officer, returned case inspector)? Give summary @ -No Was smoking cessation discussed for >3mins.? @ -No Was critical care preformed (if so, how long)? @ -No Were there social determinants of health that impacted care today? How? (Homelessness, low income, unemployed, alcoholism, drug addiction, transportation, low edu. Level, literacy, decrease access to med. care, skilled nursing, rehab)? @ -No Was there de-escalation of care discussed even if they declined (Discuss DNR or withdrawal of care, Hospice)? DNR status @ -No What co-morbidities impacted this encounter? (DM, HTN, Smoking, COPD, CAD, Cancer, CVA, ARF, Chemo, Hep., AIDS, mental health diagnosis, sleep apnea, morbid obesity)? @ -None Was patient admitted / discharged? Hospital course, mention meds given and route, prescriptions, significant lab abnormalities, going to OR and other per tinent info. @ -Discharge 43-year-old male with a current diagnosis and undergoing treatment for diverticulitis presenting today with complaints of abnormal labs. Reportedly had elevated LFTs and reportedly decreased kidney function was sent to the ED for further evaluation. Laboratory studies reviewed. Labs unremarkable. On examination, patient is tender in the left lower quadrant however no rebound guarding or rigidity. Patient also reports pain has been somewhat controlled with ibuprofen and reports that it has not significantly worsened over the past few days. Patient discharged home in stable condition with instructions to follow-up with his PCP. Discussed return precautions with patient who verbalized agreement. Undiagnosed new problem with uncertain prognosis? @ -No Drug Therapy requiring intensive monitoring for toxicity (Heparin, Nitro, Insulin, Cardizem)? @ -No Were any procedures done? @ -No Diagnosis/symptom? @ -Diverticulitis, reported abnormal labs Acute, or Chronic, or Acute on Chronic? @ -Acute Uncomplicated (without systemic symptoms) or Complicated (systemic symptoms)? @ -Uncomplicated Side effects of treatment? @ -No Exacerbation, Progression, or Severe Exacerbation? @ -No Poses a threat to life or bodily function? How? (Chest pain, [place], [place], pneumonia, PE, COPD, DKA, ARF, appy, cholecystitis, CVA, Diverticulitis, Homicidal, Suicidal, threat to staff... and all critical care pts) @ -No - Lab Data Result diagrams: 10/12/23 18:41 10/12/23 18:41 Lab Results 10/12/23 10/12/23 Range/Units 18:41 18:41 WBC 8.7 (3.8-10.6) k/uL RBC 4.43 (4.30-5.90) m/uL Hgb 13.4 (13.0-17.5) gm/dL Hct 39.6 (39.0-53.0) % MCV 89.4 (80.0-100.0) fL MCH 30.3 (25.0-35.0) pg MCHC 33.9 (31.0-37.0) g/dL RDW 13.9 (11.5-15.5) % Plt Count 224 (150-450) k/uL MPV 8.1 Neutrophils % 80 % Lymphocytes % 8 % Monocytes % 8 % Eosinophils % 3 % Basophils % 0 % Neutrophils # 7.0 (1.3-7.7) k/uL Lymphocytes # 0.7 L (1.0-4.8) k/uL Monocytes # 0.7 (0-1.0) k/uL Eosinophils # 0.2 (0-0.7) k/uL Basophils # 0.0 (0-0.2) k/uL Sodium 138 (137-145) mmol/L Potassium 4.3 (3.5-5.1) mmol/L Chloride 103 (98-107) mmol/L Carbon Dioxide 31 H (22-30) mmol/L Anion Gap 4 mmol/L BUN 13 (9-20) mg/dL Creatinine 1.01 (0.66-1.25) mg/dL Est GFR (CKD-EPI)AfAm >90 (>60 ml/min/1.73 sqM) Est GFR (CKD-EPI)NonAf >90 (>60 ml/min/1.73 sqM) Glucose 97 (74-99) mg/dL Calcium 8.9 (8.4-10.2) mg/dL Total Bilirubin 1.3 (0.2-1.3) mg/dL AST 43 (17-59) U/L ALT 49 (4-49) U/L Alkaline Phosphatase 59 (38-126) U/L Total Protein 7.0 (6.3-8.2) g/dL Albumin 4.2 (3.5-5.0) g/dL Amylase 53 (30-110) U/L Lipase 51 (23-300) U/L Disposition Clinical Impression: Abdominal pain Disposition: HOME SELF-CARE Condition: Good Instructions (If sedation given, give patient instructions): Diverticulitis (ED), Diverticulitis Diet (ED) Additional Instructions: Please return to the Emergency Department if symptoms worsen or any other concerns. Please follow-up with your PCP. Is patient prescribed a controlled substance at d/c from ED?: No Referrals: Diego Denise MD [Primary Care Provider] - 1-2 days Time of Disposition: 20:52
[2023-10-12] MEDS: MORPHINE SULFATE 2 MG/ML SYRINGE IVP ONE (21:13)
[2023-10-12 22:07] VITALS: BP 142/94; PULSE 82
== END 2023-10-12 21:33 | disposition home or self-care (01) ==
LOC: EC 17:32
DX: K57.92 Diverticulitis of intestine, part unspecified, without perforation or abscess without bleeding (principal); I44.0 Atrioventricular block, first degree; R79.89 Other specified abnormal findings of blood chemistry; Z87.891 Personal history of nicotine dependence
CPT/HCPCS: 36415; 93005; 80053; 82150; 83690; 85025; 74018; 99284; 96374; J2270

== ENCOUNTER 2023-10-17 04:00 | Inpatient (IN) | payer OTHER ==
[2023-10-17 05:39] LABS: Basophils # (A) 0.1 k/uL (0-0.2); Basophils % (A) 1 %; Eosinophils # (A) 0.4 k/uL (0-0.7); Eosinophils % (A) 4 %; Lymphocytes # (A) 0.8 k/uL (1.0-4.8); Lymphocytes % (A) 8 %; MCH 29.2 pg (25.0-35.0); MCHC 32.6 g/dL (31.0-37.0); MCV 89.4 fL (80.0-100.0); Mean Platelet Volume 7.8; Monocytes # (A) 0.7 k/uL (0-1.0); Monocytes % (A) 7 %; Neutrophils # (A) 7.8 k/uL (1.3-7.7); Neutrophils % (A) 79 %; Platelet Count 291 k/uL (150-450); RBC 5.15 m/uL (4.30-5.90); RDW 13.5 % (11.5-15.5); WBC 9.8 k/uL (3.8-10.6)
[2023-10-17 05:51] LABS: ALT 31 U/L (4-49); AST 38 U/L (17-59); African American GFR (CKD) >90 (>60 ml/min/1.73 sqM); Albumin 4.2 g/dL (3.5-5.0); Alkaline Phosphatase 70 U/L (38-126); Anion Gap 7 mmol/L; Blood Urea Nitrogen 17 mg/dL (9-20); Carbon Dioxide 27 mmol/L (22-30); Chloride 104 mmol/L (98-107); Glucose 110 mg/dL (74-99); Non-African American GFR(CKD) >90 (>60 ml/min/1.73 sqM); Potassium 4.1 mmol/L (3.5-5.1); Sodium 138 mmol/L (137-145); Total Bilirubin 0.8 mg/dL (0.2-1.3); Total Protein 7.2 g/dL (6.3-8.2)
--- NOTE | 2023-10-17 06:01 | ED ---
GI Bleed HPI - General Source: patient, RN notes reviewed Mode of arrival: ambulatory Limitations: no limitations <Kimberly Curry - Last Filed: 10/17/23 11:40> - General Source: patient Mode of arrival: ambulatory Limitations: no limitations <Maricarmen Stevenson - Last Filed: 10/25/23 23:29> - General Chief complaint: GI Bleed Stated complaint: blood in stool Time Seen by Provider: 10/17/23 04:15 - History of Present Illness Initial comments: This is a 43-year-old male who presents to the emergency department for abdominal pain and rectal bleeding. Patient was evaluated here for left lower quadrant abdominal pain about a month ago and diagnosed with diverticulitis. He has been on 2 rounds of antibiotics without any relief in symptoms. He was initially on Augmentin and just finished a combination treatment last night. States that the pain continues to persist. Reports associated nausea as well. This morning he started to have bright red blood in his stool, which has never happened before. He is on warfarin for cardiac issues and recently had a Ross procedure. (Kimberly Curry) 43-year-old man presents emergency department for continued left lower quadrant pain. Patient is having bright red stools. This has been going on for quite some time. He was seen in the ER previously for this. States he has been on antibiotics to his primary care office and symptoms or not getting any better (Maricarmen Stevenson) - Related Data Home Medications Medication Instructions Recorded Confirmed Warfarin Sodium 4 mg PO MOWEFR 09/15/23 10/17/23 Warfarin Sodium 6 mg PO SUTUTHSA 09/15/23 10/17/23 Bifidobacterium Infantis [Align] 4 mg PO DAILY 10/17/23 10/17/23 Metoprolol Tartrate [Lopressor] 100 mg PO BID-W/MEALS 10/17/23 10/17/23 Previous Rx's Medication Instructions Recorded Amoxic-Pot Clav 875-125Mg 1 tab PO Q12HR 10 Days #20 tab 10/25/23 [Augmentin 875-125] Enoxaparin [Lovenox] 100 mg SQ Q12H #10 each 10/25/23 HYDROcodone/APAP 5-325MG [[place] 1 tab PO Q6HR PRN 3 Days #12 tab 10/25/23 5-325] Allergies Allergy/AdvReac Type Severity Reaction Status Date / Time No Known Allergies Allergy Verified 10/17/23 09:29 Review of Systems ROS Other: All systems not noted in ROS Statement are negative. <Kimberly Curry - Last Filed: 10/17/23 11:40> ROS Other: All systems not noted in ROS Statement are negative. <Maricarmen Stevenson Geraldine - Last Filed: 10/25/23 23:29> ROS Statement: Those systems with pertinent positive or pertinent negative responses have been documented in the HPI. Past Medical History Past Medical History: CVA/TIA, Hypertension Additional Past Medical History / Comment(s): CONGENITAL AORTIC VALVE STENOSIS, congenital heart disease History of Any Multi-Drug Resistant Organisms: None Reported Past Surgical History: Cardiac Valve Replacement, Cholecystectomy, Coronary Bypass/CABG, Heart Catheterization With Stent Additional Past Surgical History / Comment(s): 1991 & 1996 AORTIC VALVE REPLACED and again in 2014,CYST REMOVED FROM THROAT Past Anesthesia/Blood Transfusion Reactions: No Reported Reaction Past Psychological History: No Psychological Hx Reported Smoking Status: Former smoker Past Alcohol Use History: None Reported Past Drug Use History: Marijuana - Past Family History Mother Family Medical History: Diabetes Mellitus Father History Unknown: Yes <Maricarmen Stevenson - Last Filed: 10/25/23 23:29> General Exam Limitations: no limitations General appearance: alert, in no apparent distress Head exam: Present: atraumatic, normocephalic, normal inspection Respiratory exam: Present: normal lung sounds bilaterally. Absent: respiratory distress, wheezes, rales, rhonchi, stridor Cardiovascular Exam: Present: regular rate, normal rhythm, normal heart sounds. Absent: systolic murmur, diastolic murmur, rubs, gallop, clicks GI/Abdominal exam: Present: soft, tenderness (LLQ), normal bowel sounds. Absent: distended Neurological exam: Present: alert, oriented X3, CN II-XII intact Psychiatric exam: Present: normal affect, normal mood Skin exam: Present: warm, dry, intact, normal color. Absent: rash <Kimberly Curry - Last Filed: 10/17/23 11:40> Limitations: no limitations <Maricarmen Stevenson Geraldine - Last Filed: 10/25/23 23:29> - General Exam Comments Initial Comments: General: Well-appearing, nontoxic, no acute distress. Head: Normocephalic, atraumatic Eyes: PERRLA, EOMI ENT: Airway patent Chest: Nonlabored breathing Skin: No visual rash, normal skin tone Neuro: Alert and oriented 3 Musculoskeletal: No gross abnormalities (Maricarmen Stevenson) Course Vital Signs 10/17/23 10/17/23 10/17/23 04:11 08:00 10:34 Temperature 98.2 F 98.3 F Pulse Rate 75 85 65 Respiratory 18 18 18 Rate Blood Pressure 157/109 145/91 137/86 O2 Sat by Pulse 97 98 97 Oximetry 10/17/23 10/17/23 10/17/23 10:50 12:00 13:00 Temperature 98.1 F Pulse Rate 69 76 71 Respiratory 18 16 16 Rate Blood Pressure 150/91 130/86 136/84 O2 Sat by Pulse 98 99 99 Oximetry 10/17/23 10/17/23 10/17/23 14:00 17:00 18:00 Temperature Pulse Rate 84 81 72 Respiratory 16 18 Rate Blood Pressure 146/78 149/88 O2 Sat by Pulse 99 97 99 Oximetry 10/17/23 10/17/23 10/18/23 20:00 21:00 00:03 Temperature Pulse Rate 73 79 77 Respiratory 20 20 17 Rate Blood Pressure 146/98 145/105 128/89 O2 Sat by Pulse 99 98 98 Oximetry 10/18/23 02:00 Temperature Pulse Rate 72 Respiratory 12 Rate Blood Pressure 138/86 O2 Sat by Pulse 98 Oximetry Medical Decision Making - Lab Data Result diagrams: 10/17/23 05:20 10/17/23 05:20 - Radiology Data Radiology results: report reviewed, image reviewed <Kimberly Curry - Last Filed: 10/17/23 11:40> - Lab Data Result diagrams: 10/25/23 04:52 10/23/23 05:01 <Maricarmen Stevenson - Last Filed: 10/25/23 23:29> - Medical Decision Making This is a 43 year old male who presents to the emergency department for abdominal pain and rectal bleeding. Was pt. sent in by a medical professional or institution? @ -No Did you speak to anyone other than the patient for history? @ -No Did you review nursing and triage notes? @ -Yes, and I agree, it is accurate with regards to the patient's symptoms. Were old charts reviewed? @ -No Differential Diagnosis? @ -Differential GI Bleed: Esophageal varices, aortoenteric fistula, Arlette-Sweet, gastritis, peptic ulcer disease, diverticulosis, inflammatory bowel disease, hemorrhoids, fissure, colitis, malignancy, Meckels diverticulum, this is not meant to be an all- inclusive list. EKG interpreted by me (3pts min.)? @ -EKG interpreted by me demonstrating the following: Sinus rhythm. Ventricular rate 67 bpm, CO interval 224 ms, QRS duration 140 ms, QTc 433 ms. X-rays interpreted by me (1pt min.)? @ -Not obtained CT interpreted by me (1pt min.)? @ -CTA of the abdomen and pelvis obtained. My interpretation identifies fat stranding changes around the descending colon. U/S interpreted by me (1pt. min.)? @ -Not obtained What testing was considered but not performed? (CT, X-rays, U/S, labs)? Why? @ -None What meds were considered but not given? Why? @ -None Did you discuss the management of the patient with other professionals? @ -Yes, Dr. France, who advised IV antibiotics and 10mg of vitamin K Did you reconcile home meds? @ -Yes Was smoking cessation discussed for >3mins.? @ -I discussed smoking cessation for greater than 3 minutes. The risk of smoking were discussed with the patient including but not limited to risks of cancer, stroke, coronary artery disease and COPD. Also discussed with patient were multiple methods of quitting smoking. Lastly we discussed the financial cost of smoking. Was critical care preformed (if so, how long)? @ -No Were there social determinants of health that impacted care today? How? (Homelessness, low income, unemployed, alcoholism, drug addiction, transportation, low edu. Level, literacy, decrease access to med. care, shelter, rehab)? @ -No Was there de-escalation of care discussed even if they declined? (Discuss DNR or withdrawal of care, Hospice)? @ -No What co-morbidities impacted this encounter? (DM, HTN, Smoking, COPD, CAD, Cancer, CVA, Hep., AIDS, mental health diagnosis, sleep apnea, morbid obesity)? @ -Smoking, HTN, aortic valve stenosis Was patient admitted / discharged? @ -Admitted. Lab work fairly unremarkable. CT angiogram of the abdomen and pelvis per GI protocol obtained demonstrating complicated diverticulitis perfora tion with phlegmonous change just outside the lumen of the descending colon. No organizing fluid collection at this time however is felt to represent early abscess formation. Patient is on warfarin, INR is 2.2. Blood cultures were obtained and patient was started on Zosyn. Maintenance fluids initiated as well. Case discussed with Dr. France, general surgery, who advised IV antibiotics. He also advised 10mg of vitamin K due to associated bleeding and patient being on warfarin. Patient admitted to medicine for complicated diverticulitis with perforation. General surgery listed as consult. Will keep patient n.p.o. for the meantime as well. Undiagnosed new problem with uncertain prognosis? @ -None Drug Therapy requiring intensive monitoring for toxicity (Heparin, Nitro, Insulin, Cardizem)? @ -None Were any procedures done? @ -None Diagnosis/symptom? @ -Complicated diverticulitis with perforation Acute, or Chronic, or Acute on Chronic? @ -Acute Uncomplicated (without systemic symptoms) or Complicated (systemic symptoms)? @ -Complicated Side effects of treatment? @ -None Exacerbation, Progression, or Severe Exacerbation] @ -Not applicable Poses a threat to life or bodily function? @ -Yes, patient is at risk of sepsis and septic shock, which can lead to if untreated. This case was discussed in detail with the attending ED physician, Dr. Driscoll. Presentation, findings, and treatment plan discussed in detail as well. (Kimberly Curry) I performed the quick note on this patient (Maricarmen Stevenson) - Lab Data Lab Results 10/17/23 10/17/23 10/17/23 Range/Units 05:20 05:20 05:20 WBC 9.8 (3.8-10.6) k/uL RBC 5.15 (4.30-5.90) m/uL Hgb 15.0 (13.0-17.5) gm/dL Hct 46.0 (39.0-53.0) % MCV 89.4 (80.0-100.0) fL MCH 29.2 (25.0-35.0) pg MCHC 32.6 (31.0-37.0) g/dL RDW 13.5 (11.5-15.5) % Plt Count 291 (150-450) k/uL MPV 7.8 Neutrophils % 79 % Lymphocytes % 8 % Monocytes % 7 % Eosinophils % 4 % Basophils % 1 % Neutrophils # 7.8 H (1.3-7.7) k/uL Lymphocytes # 0.8 L (1.0-4.8) k/uL Monocytes # 0.7 (0-1.0) k/uL Eosinophils # 0.4 (0-0.7) k/uL Basophils # 0.1 (0-0.2) k/uL PT (10.0-12.5) sec INR (<1.2) APTT 36.6 H (22.0-30.0) sec Sodium 138 (137-145) mmol/L Potassium 4.1 (3.5-5.1) mmol/L Chloride 104 (98-107) mmol/L Carbon Dioxide 27 (22-30) mmol/L Anion Gap 7 mmol/L BUN 17 (9-20) mg/dL Creatinine 0.98 (0.66-1.25) mg/dL Est GFR (CKD-EPI)AfAm >90 (>60 ml/min/1.73 sqM) Est GFR (CKD-EPI)NonAf >90 (>60 ml/min/1.73 sqM) Glucose 110 H (74-99) mg/dL Calcium 9.0 (8.4-10.2) mg/dL Total Bilirubin 0.8 (0.2-1.3) mg/dL AST 38 (17-59) U/L ALT 31 (4-49) U/L Alkaline Phosphatase 70 (38-126) U/L Troponin I (0.000-0.034) ng/mL Total Protein 7.2 (6.3-8.2) g/dL Albumin 4.2 (3.5-5.0) g/dL 10/17/23 10/17/23 Range/Units 05:20 05:20 WBC (3.8-10.6) k/uL RBC (4.30-5.90) m/uL Hgb (13.0-17.5) gm/dL Hct (39.0-53.0) % MCV (80.0-100.0) fL MCH (25.0-35.0) pg MCHC (31.0-37.0) g/dL RDW (11.5-15.5) % Plt Count (150-450) k/uL MPV Neutrophils % % Lymphocytes % % Monocytes % % Eosinophils % % Basophils % % Neutrophils # (1.3-7.7) k/uL Lymphocytes # (1.0-4.8) k/uL Monocytes # (0-1.0) k/uL Eosinophils # (0-0.7) k/uL Basophils # (0-0.2) k/uL PT 22.2 H (10.0-12.5) sec INR 2.2 H (<1.2) APTT (22.0-30.0) sec Sodium (137-145) mmol/L Potassium (3.5-5.1) mmol/L Chloride (98-107) mmol/L Carbon Dioxide (22-30) mmol/L Anion Gap mmol/L BUN (9-20) mg/dL Creatinine (0.66-1.25) mg/dL Est GFR (CKD-EPI)AfAm (>60 ml/min/1.73 sqM) Est GFR (CKD-EPI)NonAf (>60 ml/min/1.73 sqM) Glucose (74-99) mg/dL Calcium (8.4-10.2) mg/dL Total Bilirubin (0.2-1.3) mg/dL AST (17-59) U/L ALT (4-49) U/L Alkaline Phosphatase (38-126) U/L Troponin I <0.012 (0.000-0.034) ng/mL Total Protein (6.3-8.2) g/dL Albumin (3.5-5.0) g/dL Disposition Time of Disposition: 08:31 <Kimberly Curry - Last Filed: 10/17/23 11:40> <Maricarmen Stevenson - Last Filed: 10/25/23 23:29> Clinical Impression: Diverticulitis of colon with perforation, Nicotine dependence Disposition: ADMITTED IP TO THIS [facility] Condition: Good
[2023-10-17] MEDS: SODIUM CHLORIDE 0.9% 1,000 ML IV STA ×3 (08:08→09:35)
[2023-10-17] MEDS: ONDANSETRON 4 MG/2 ML VIAL IVP STA (08:09)
[2023-10-17] MEDS: MORPHINE SULFATE 4 MG/ML SYRINGE IVP STA (08:10)
--- NOTE | 2023-10-17 08:16 | CT ---
EXAMINATION TYPE: CT angio abdomen pelvis CT DLP: 3081.5 mGycm, Automated exposure control for dose reduction was used. DATE OF EXAM: 10/17/2023 7:57 AM COMPARISON: 09/15/2023 CLINICAL INDICATION:Male, 43 years old with history of abdominal pain, rectal bleeding, GI bleed TECHNIQUE: Multiple thin slice sub-millimeter images were obtained after administration of contrast. 3-D reconstructed images and maximum intensity projection images were obtained. CT angio abdomen pel vis CT Contrast: Contrast used:100 mL of Isovue 370 without and with IV Contrast, Oral contrast used: without Oral Contrast None FINDINGS: CTA Abdomen and pelvis: The abdominal aorta does not demonstrate aneurysmal dilatation. Atherosclero tic plaquing is identified within the abdominal aorta. The origins of the superior mesenteric artery , renal arteries, inferior mesenteric artery, and celiac axis are patent. The iliac vessels are norm al in morphology LOWER CHEST: No evidence of focal consolidation, pneumothorax or pleural effusion. LIVER: Unremarkable GALLBLADDER AND BILE DUCTS: Unremarkable. PANCREAS: Unremarkable. SPLEEN: Unremarkable. ADRENAL GLANDS: Unremarkable. KIDNEYS AND URETERS: No evidence of hydronephrosis or renal calculus. The ureters are unremarkable. PELVIS BLADDER: Unremarkable REPRODUCTIVE: Unremarkable. ABDOMEN & PELVIS STOMACH AND BOWEL: No evidence of bowel obstruction. Fat stranding changes around the descending colo n diverticula with phlegmonous change of the lumen with foci of pneumoperitoneum.. PERITONEUM: No evidence of pneumoperitoneum or free fluid. VASCULATURE: No evidence of aortic aneurysm. MUSCULOSKELETAL: No acute osseous abnormalities LYMPH NODES: No gross evidence for lymphadenopathy. SOFT TISSUE/ABDOMINAL WALL: Unremarkable IMPRESSION Complicated diverticulitis perforation with phlegmonous change just outside the lumen of the descendi ng colon. No organizing fluid collection at this time however is felt to represent early abscess form ation. No evidence for gastrointestinal hemorrhage.
[2023-10-17] MEDS ORDERED: HYDROmorphone 0.5 MG/0.5 ML SYRINGE IVP PRN (08:38)
[2023-10-17] MEDS ORDERED: NALOXONE 0.4 MG/ML 1 ML VIAL IV PRN (08:38)
[2023-10-17 08:40] LABS: INR 2.2 (<1.2); Prothrombin Time 22.2 sec (10.0-12.5)
[2023-10-17] MEDS ORDERED: ACETAMINOPHEN IV (For NPO) 1,000 MG in EMPTY BAG 1 BAG IVPB PRN (08:40)
[2023-10-17] MEDS: PIPERACILLIN-TAZOBACTAM 3.375 GM in SODIUM CHLORIDE 0.9% 100 ML IVPB STA (09:31)
[2023-10-17] MEDS: PANTOPRAZOLE 40 MG/10 ML VIAL IV SCH (10:33)
[2023-10-17] MEDS: PHYTONADIONE 10 MG in SODIUM CHLORIDE 0.9% 50 ML IVPB STA (10:34)
--- NOTE | 2023-10-17 11:27 | P.GSCN ---
History of Present Illness Consult date: 10/17/23 History of present illness: CHIEF COMPLAINT: Abdominal pain HISTORY OF PRESENT ILLNESS: This is a 43-year-old male that presented to the hospital with left lower quadrant abdominal pain. Patient reports he had pain intermittently for the past 2 months. He has had 2 rounds recently for what he thinks is diverticulitis. This morning he had 2 bloody bowel movements with clots. He became concerned because of the bleeding and came into the hospital for further evaluation. Patient does have congenital aortic valve stenosis he has had Ross procedure in 2015. He has mechanical aortic valve and is on Coumadin. Abdominal surgical history includes cholecystectomy. He has never had a colonoscopy. CTA abdomen and pelvis had reported complicated diverticulitis perforation with phlegmonous change just outside the lumen of the descending colon. No organized fluid collection. No evidence for gastrointestinal hemorrhage. Surgical service consulted in regards to diverticulitis with perforation. He is on IV antibiotics. PAST MEDICAL HISTORY: CVA, congenital aortic valve stenosis, congenital heart disease, multiple cardiac surgeries PAST SURGICAL HISTORY: Cardiac Valve Replacement, Cholecystectomy, Coronary Bypass/CABG, Heart Catheterization With Stent,1991 & 1996 AORTIC VALVE REPLACED and again in 2014 MEDICATIONS: See below ALLERGIES: See below SOCIAL HISTORY: No illicit drug use. Former smoker. Uses marijuana. Denies alcohol use. REVIEW OF SYSTEMS: CONSTITUTIONAL: Denies fever or chills. HEENT: Denies blurred vision, vision changes, or eye pain. Denies hemoptysis CARDIOVASCULAR: Denies chest pain or pressure. RESPIRATORY: No shortness of breath. GASTROINTESTINAL: See HPI for pertinent findings HEMATOLOGIC: Denies bleeding disorders. GENITOURINARY: Denies any blood in urine or increased urinary frequency. SKIN: Denies pruitis. Denies rash. PHYSICAL EXAM: VITAL SIGNS: Reviewed GENERAL: Well-developed in no acute distress. HEENT: No sclera icterus. Extraocular movements grossly intact. Moist buccal mucosa. Head is atraumatic, normocephalic. No nasal drainage. ABDOMEN: Soft. Nondistended. Pain with palpation to the left lower quadrant NEUROLOGIC: Alert and oriented. Cranial nerves II through XII grossly intact. LABORATORY DATA: WBC 9.8 hgb 15, plt 291 Na 138 potassium 4.1 creatinine 0.98 INR 2.2 IMAGING: CT scan abdomen pelvis as stated above ASSESSMENT: 1. Acute diverticulitis with perforation and phlegmonous change just outside the lumen of the descending colon noted on CT scan 2. Congenital aortic valve stenosis with prior cardiac surgeries PLAN: -Patient scheduled for sigmoid colectomy, possible colostomy tomorrow, 10/18/[address] France -N.p.o. after midnight -Continue IV fluids -Continue IV antibiotics -Vitamin K given to reverse Coumadin -Hold Coumadin -Consult cardiology for cardiac risk assessment Physician Doctor Of Naturopathic Medicine note has been reviewed by physician. Signing provider agrees with the documented findings, assessment, and plan of care. Past Medical History Past Medical History: CVA/TIA, Hypertension Additional Past Medical History / Comment(s): CONGENITAL AORTIC VALVE STENOSIS, congenital heart disease History of Any Multi-Drug Resistant Organisms: None Reported Past Surgical History: Cardiac Valve Replacement, Cholecystectomy, Coronary Bypass/CABG, Heart Catheterization With Stent Additional Past Surgical History / Comment(s): 1991 & 1996 AORTIC VALVE REPLACED and again in 2014,CYST REMOVED FROM THROAT Past Anesthesia/Blood Transfusion Reactions: No Reported Reaction Past Psychological History: No Psychological Hx Reported Smoking Status: Former smoker Past Alcohol Use History: None Reported Past Drug Use History: Marijuana - Past Family History Mother Family Medical History: Diabetes Mellitus Father History Unknown: Yes Medications and Allergies Home Medications Medication Instructions Recorded Confirmed Type Warfarin Sodium 4 mg PO MOWEFR 09/15/23 10/17/23 History Warfarin Sodium 6 mg PO SUTUTHSA 09/15/23 10/17/23 History Bifidobacterium Infantis [Align] 4 mg PO DAILY 10/17/23 10/17/23 History Metoprolol Tartrate [Lopressor] 100 mg PO BID-W/MEALS 10/17/23 10/17/23 History Allergies Allergy/AdvReac Type Severity Reaction Status Date / Time No Known Allergies Allergy Verified 10/17/23 09:29 Surgical - Exam Vital Signs Temp Pulse Resp BP Pulse Ox 98.2 F 75 18 157/109 97 10/17/23 04:11 10/17/23 04:11 10/17/23 04:11 10/17/23 04:11 10/17/23 04:11 Results - Labs 10/17/23 05:20 10/17/23 05:20 Abnormal Lab Results - Last 24 Hours (Table) 10/17/23 10/17/23 10/17/23 Range/Units 05:20 05:20 05:20 Neutrophils # 7.8 H (1.3-7.7) k/uL Lymphocytes # 0.8 L (1.0-4.8) k/uL PT (10.0-12.5) sec INR (<1.2) APTT 36.6 H (22.0-30.0) sec Glucose 110 H (74-99) mg/dL 10/17/23 Range/Units 05:20 Neutrophils # (1.3-7.7) k/uL Lymphocytes # (1.0-4.8) k/uL PT 22.2 H (10.0-12.5) sec INR 2.2 H (<1.2) APTT (22.0-30.0) sec Glucose (74-99) mg/dL Diabetes panel 10/17/23 Range/Units 05:20 Sodium 138 (137-145) mmol/L Potassium 4.1 (3.5-5.1) mmol/L Chloride 104 (98-107) mmol/L Carbon Dioxide 27 (22-30) mmol/L BUN 17 (9-20) mg/dL Creatinine 0.98 (0.66-1.25) mg/dL Glucose 110 H (74-99) mg/dL Calcium 9.0 (8.4-10.2) mg/dL AST 38 (17-59) U/L ALT 31 (4-49) U/L Alkaline Phosphatase 70 (38-126) U/L Total Protein 7.2 (6.3-8.2) g/dL Albumin 4.2 (3.5-5.0) g/dL Calcium panel 10/17/23 Range/Units 05:20 Calcium 9.0 (8.4-10.2) mg/dL Albumin 4.2 (3.5-5.0) g/dL Pituitary panel 10/17/23 Range/Units 05:20 Sodium 138 (137-145) mmol/L Potassium 4.1 (3.5-5.1) mmol/L Chloride 104 (98-107) mmol/L Carbon Dioxide 27 (22-30) mmol/L BUN 17 (9-20) mg/dL Creatinine 0.98 (0.66-1.25) mg/dL Glucose 110 H (74-99) mg/dL Calcium 9.0 (8.4-10.2) mg/dL Adrenal panel 10/17/23 Range/Units 05:20 Sodium 138 (137-145) mmol/L Potassium 4.1 (3.5-5.1) mmol/L Chloride 104 (98-107) mmol/L Carbon Dioxide 27 (22-30) mmol/L BUN 17 (9-20) mg/dL Creatinine 0.98 (0.66-1.25) mg/dL Glucose 110 H (74-99) mg/dL Calcium 9.0 (8.4-10.2) mg/dL Total Bilirubin 0.8 (0.2-1.3) mg/dL AST 38 (17-59) U/L ALT 31 (4-49) U/L Alkaline Phosphatase 70 (38-126) U/L Total Protein 7.2 (6.3-8.2) g/dL Albumin 4.2 (3.5-5.0) g/dL
[2023-10-17] MEDS: HYDROmorphone 1 MG/ML 1 ML SYRINGE IVP PRN (13:19)
[2023-10-17] MEDS: ONDANSETRON 4 MG/2 ML VIAL IVP PRN (13:23)
[2023-10-17] MEDS: PIPERACILLIN-TAZOBACTAM 3.375 GM in SODIUM CHLORIDE 0.9% 100 ML IVPB SCH (13:30)
--- NOTE | 2023-10-17 15:01 | P.CRDCN ---
History of Present Illness Consult date: 10/17/23 Reason for Consult (text): Preop risk assessment History of present illness: History of present illness: This is a 43-year-old male patient of Dr. Lenz with past medical history of congenital aortic stenosis status post balloon valvuloplasty, Ross procedure and then mechanical aortic valve replacement, history of ascending aortic aneurysm status post ascending aortic repair, stroke, as well as TIA, hypertension, some concern for medical noncompliance. We have been asked to evaluate the patient for preop clearance. Patient states that around 3 in the morning he started having abdominal pain which she apparently has had on and off for the past 2 months. He had 2 bloody stools with clots and came into the hospital for evaluation. Patient has been seen by general surgery with plan for sigmoid colectomy and possible colostomy which is scheduled for tomorrow with Dr. France. Coumadin has been placed on hold. Patient denies having any difficulty in breathing no chest pain or chest pressure, no palpitations, no lightheadedness or dizziness and no syncopal episodes. He states he does have a little bit of nausea. Patient is seen today in the emergency center waiting for a bed on the [facility] floor. EKG sinus rhythm with right bundle branch block CTA of the abdomen pelvis revealed complicated diverticulitis perforation with phlegmonous change just outside the lumen of the descending colon. No organizing fluid collection at this time however felt to represent early abscess formation. No evidence of GI hemorrhage. WBC 9.8, hemoglobin 15. INR 2.2. Electrolytes and renal function normal. Troponin negative x 1. Home cardiac medications: Metoprolol tartrate 100 mg twice daily, Coumadin alternating 6 mg and 4 mg Cardiac catheterization in 2016 revealed normal coronary arteries Stress echocardiogram performed in the office on 07/20/2023 revealed nonspecific stress EKG portion secondary to baseline EKG abnormalities with accentuation of baseline EKG abnormalities. Normal stress echo portion. Normal LV function 55%. Good exercise tolerance. Echocardiogram performed 07/13/2023 revealed EF of 50% grade 2 diastolic dysfunction, moderate LVH, AV prosthesis with peak gradient 11, mean gradient 6, moderate mitral regurgitation, moderate to severe pulmonic insufficiency pressure half-time 104 MS, moderate pulmonic stenosis, RVSP 58. Review Of Systems: At the time of my exam: CONSTITUTIONAL: Denies fever or chills. HEENT: Denies blurred vision, vision changes, or eye pain. Denies hemoptysis CARDIOVASCULAR: Denies chest pain. Denies orthopnea. Denies PND. Denies palpitations RESPIRATORY: Denies shortness of breath. GASTROINTESTINAL: Reports abdominal pain. Denies nausea or vomiting. HEMATOLOGIC: Denies bleeding disorders. GENITOURINARY: Denies any blood in urine. SKIN: Denies pruitis. Denies rash. Physical examination: Gen: This is a 43-year-old male appears to be in no acute distress. VS: reviewed HEENT: Head is atraumatic, normocephalic. Pupils equal, round. Sclerae is anicteric. NECK: Supple. No JVD. LUNGS: Clear to auscultation. No wheezes or rhonchi. No intercostal retractions. HEART: Regular rate and rhythm. 3/6 systolic murmur with click. ABDOMEN: Soft + tenderness. EXTREMITIES: No pedal edema. No calf tenderness. NEUROLOGICAL: Patient is awake, alert and oriented x3. Assessment: Acute diverticulitis with perforation and phlegmonous change of the descending colon with plan for sigmoid colectomy and possible colostomy on 10/17 Congenital aortic stenosis, status post balloon valvuloplasty, initial Ross procedure, mechanical aortic valve placement in 2016 Ascending aortic aneurysm status post repair in 2016 Hypertension Hyperlipidemia History of stroke and TIA likely related to mechanical valve History of medical noncompliance Plan: Continue patient's home cardiac medications Continue to hold Coumadin Patient to be resumed on heparin drip as soon as possible following surgery Patient is at intermediate risk for complications during the perioperative period. Further recommendations to follow based upon clinical course Thank you kindly for this consultation. Nurse practitioner note has been reviewed, I agree with documented findings and plan of care. Patient was seen and examined. Past Medical History Past Medical History: CVA/TIA, Hypertension Additional Past Medical History / Comment(s): CONGENITAL AORTIC VALVE STENOSIS, congenital heart disease History of Any Multi-Drug Resistant Organisms: None Reported Past Surgical History: Cardiac Valve Replacement, Cholecystectomy, Coronary Bypass/CABG, Heart Catheterization With Stent Additional Past Surgical History / Comment(s): 1991 & 1996 AORTIC VALVE REPLACED and again in 2014,CYST REMOVED FROM THROAT Past Anesthesia/Blood Transfusion Reactions: No Reported Reaction Past Psychological History: No Psychological Hx Reported Smoking Status: Former smoker Past Alcohol Use History: None Reported Past Drug Use History: Marijuana - Past Family History Mother Family Medical History: Diabetes Mellitus Father History Unknown: Yes Medications and Allergies Home Medications Medication Instructions Recorded Confirmed Type Warfarin Sodium 4 mg PO MOWEFR 09/15/23 10/17/23 History Warfarin Sodium 6 mg PO SUTUTHSA 09/15/23 10/17/23 History Bifidobacterium Infantis [Align] 4 mg PO DAILY 10/17/23 10/17/23 History Metoprolol Tartrate [Lopressor] 100 mg PO BID-W/MEALS 10/17/23 10/17/23 History Allergies Allergy/AdvReac Type Severity Reaction Status Date / Time No Known Allergies Allergy Verified 10/17/23 09:29 Physical Exam Vitals: Vital Signs Temp Pulse Resp BP Pulse Ox 10/17/23 13:00 71 16 136/84 99 10/17/23 12:00 76 16 130/86 99 10/17/23 10:50 98.1 F 69 18 150/91 98 10/17/23 10:34 98.3 F 65 18 137/86 97 10/17/23 08:00 85 18 145/91 98 10/17/23 04:11 98.2 F 75 18 157/109 97 Intake and Output 10/16/23 10/17/23 10/17/23 22:59 06:59 14:59 Other: Weight 108.862 kg Results 10/17/23 05:20 10/17/23 05:20 Cardiac Enzymes 10/17/23 10/17/23 Range/Units 05:20 05:20 AST 38 (17-59) U/L Troponin I <0.012 (0.000-0.034) ng/mL Coagulation 10/17/23 10/17/23 Range/Units 05:20 05:20 PT 22.2 H (10.0-12.5) sec APTT 36.6 H (22.0-30.0) sec CBC 10/17/23 Range/Units 05:20 WBC 9.8 (3.8-10.6) k/uL RBC 5.15 (4.30-5.90) m/uL Hgb 15.0 (13.0-17.5) gm/dL Hct 46.0 (39.0-53.0) % Plt Count 291 (150-450) k/uL Comprehensive Metabolic Panel 10/17/23 Range/Units 05:20 Sodium 138 (137-145) mmol/L Potassium 4.1 (3.5-5.1) mmol/L Chloride 104 (98-107) mmol/L Carbon Dioxide 27 (22-30) mmol/L BUN 17 (9-20) mg/dL Creatinine 0.98 (0.66-1.25) mg/dL Glucose 110 H (74-99) mg/dL Calcium 9.0 (8.4-10.2) mg/dL AST 38 (17-59) U/L ALT 31 (4-49) U/L Alkaline Phosphatase 70 (38-126) U/L Total Protein 7.2 (6.3-8.2) g/dL Albumin 4.2 (3.5-5.0) g/dL Current Medications Generic Name Dose Route Start Last Admin Trade Name Freq PRN Reason Stop Dose Admin Hydromorphone HCl 0.5 mg 10/17/23 08:38 Hydromorphone 0.5 Mg/0.5 Ml Syringe IVP Q3HR PRN Moderate Pain (Scale 4 to 6) Hydromorphone HCl 1 mg 10/17/23 08:38 10/17/23 13:19 Hydromorphone 1 Mg/Ml 1 Ml Syringe IVP 1 mg Q3HR PRN Administration Severe Pain (Scale 7 to 10) Piperacillin Sod/Tazobactam 100 mls @ 25 mls/hr 10/17/23 14:00 10/17/23 13:30 Sod 3.375 gm/ Sodium Chloride IVPB 25 mls/hr Q8H JACQUELINE Administration Protocol Sodium Chloride 1,000 mls @ 130 mls/hr 10/17/23 08:29 10/17/23 09:35 Saline 0.9% IV 10/17/23 16:10 130 mls/hr .[id number] STA Administration Acetaminophen 1,000 mg/ IV 100 mls @ 400 mls/hr 10/17/23 08:40 Solution IVPB 10/18/23 08:41 Q6H PRN Fever and/or Mild Pain Lactobacillus Acidophilus 1 each 10/18/23 09:00 Lactobacillus Acidophilus/Pect 1 Each Capsule PO DAILY JACQUELINE Metoprolol Tartrate 100 mg 10/17/23 17:30 Metoprolol Tartrate 50 Mg Tab PO BID-W/MEALS JACQUELINE Naloxone HCl 0.2 mg 10/17/23 08:38 Naloxone 0.4 Mg/Ml 1 Ml Vial IV Q2M PRN Opioid Reversal Ondansetron HCl 4 mg 10/17/23 08:38 10/17/23 13:23 Ondansetron 4 Mg/2 Ml Vial IVP 4 mg Q8HR PRN Administration Nausea And Vomiting Pantoprazole Sodium 40 mg 10/17/23 09:00 10/17/23 10:33 Pantoprazole 40 Mg/10 Ml Vial IV 40 mg DAILY JACQUELINE Administration Intake and Output 10/16/23 10/17/23 10/17/23 22:59 06:59 14:59 Other: Weight 108.862 kg 10/17/23 05:20 10/17/23 05:20
[2023-10-17] MEDS: METOPROLOL TARTRATE 50 MG TAB PO SCH (17:24)
[2023-10-18 04:24] LABS: INR 1.4 (<1.2); Prothrombin Time 14.2 sec (10.0-12.5)
[2023-10-18 04:25] LABS: Basophils % (A) 1 %; Eosinophils # (A) 0.2 k/uL (0-0.7); Eosinophils % (A) 4 %; HCT 38.4 % (39.0-53.0); HGB 12.5 gm/dL (13.0-17.5); Lymphocytes # (A) 1.1 k/uL (1.0-4.8); Lymphocytes % (A) 15 %; MCH 29.3 pg (25.0-35.0); MCHC 32.5 g/dL (31.0-37.0); Mean Platelet Volume 7.7; Monocytes # (A) 0.6 k/uL (0-1.0); Monocytes % (A) 9 %; Neutrophils # (A) 4.9 k/uL (1.3-7.7); Neutrophils % (A) 70 %; Platelet Count 262 k/uL (150-450); RBC 4.27 m/uL (4.30-5.90); RDW 13.7 % (11.5-15.5); WBC 6.9 k/uL (3.8-10.6)
[2023-10-18 04:41] LABS: African American GFR (CKD) >90 (>60 ml/min/1.73 sqM); Anion Gap 4 mmol/L; Blood Urea Nitrogen 8 mg/dL (9-20); Calcium 8.6 mg/dL (8.4-10.2); Carbon Dioxide 27 mmol/L (22-30); Chloride 106 mmol/L (98-107); Glucose 94 mg/dL (74-99); Non-African American GFR(CKD) >90 (>60 ml/min/1.73 sqM); Sodium 137 mmol/L (137-145)
[2023-10-18] MEDS: LACTOBACILLUS ACIDOPHILUS/PECT 1 EACH CAPSULE PO SCH (08:28)
--- NOTE | 2023-10-18 09:10 | P.PN ---
Subjective Progress Note Date: 10/18/23 Reason for Consult (text): Preop risk assessment History of present illness: History of present illness: This is a 43-year-old male patient of Dr. Lenz with past medical history of congenital aortic stenosis status post balloon valvuloplasty, Ross procedure and then mechanical aortic valve replacement, history of ascending aortic aneurysm status post ascending aortic repair, stroke, as well as TIA, hypertension, some concern for medical noncompliance. We have been asked to evaluate the patient for preop clearance. Patient states that around 3 in the morning he started having abdominal pain which she apparently has had on and off for the past 2 months. He had 2 bloody stools with clots and came into the hospital for evaluation. Patient has been seen by general surgery with plan for sigmoid colectomy and possible colostomy which is scheduled for tomorrow with Dr. France. Coumadin has been placed on hold. Patient denies having any difficulty in breathing no chest pain or chest pressure, no palpitations, no lightheadedness or dizziness and no syncopal episodes. He states he does have a little bit of nausea. Patient is seen today in the emergency center waiting for a bed on the [facility] floor. EKG sinus rhythm with right bundle branch block CTA of the abdomen pelvis revealed complicated diverticulitis perforation with phlegmonous change just outside the lumen of the descending colon. No organizing fluid collection at this time however felt to represent early abscess formation. No evidence of GI hemorrhage. WBC 9.8, hemoglobin 15. INR 2.2. Electrolytes and renal function normal. Troponin negative x 1. Home cardiac medications: Metoprolol tartrate 100 mg twice daily, Coumadin alternating 6 mg and 4 mg Cardiac catheterization in 2015 revealed normal coronary arteries Stress echocardiogram performed in the office on 07/20/2023 revealed nonspecific stress EKG portion secondary to baseline EKG abnormalities with accentuation of baseline EKG abnormalities. Normal stress echo portion. Normal LV function 55%. Good exercise tolerance. Echocardiogram performed 07/13/2023 revealed EF of 50% grade 2 diastolic dysfu nction, moderate LVH, AV prosthesis with peak gradient 11, mean gradient 6, moderate mitral regurgitation, moderate to severe pulmonic insufficiency pressure half-time 104 MS, moderate pulmonic stenosis, RVSP 58. 5/15 Patient is seen today in follow-up on the observation unit. He is scheduled for surgery today. He denies having any chest pain or shortness of breath. He states his abdomen remains painful but controlled with current medications. Nausea is improved. INR is 1.4. Hemoglobin 12.5, BUN 8 and creatinine 0.89, potassium 4. Physical examination: Gen: This is a 43-year-old male appears to be in no acute distress. VS: reviewed HEENT: Head is atraumatic, normocephalic. Pupils equal, round. Sclerae is anicteric. NECK: Supple. No JVD. LUNGS: Clear to auscultation. No wheezes or rhonchi. No intercostal retractions. HEART: Regular rate and rhythm. 3/6 systolic murmur with click. ABDOMEN: Soft + tenderness. EXTREMITIES: No pedal edema. No calf tenderness. NEUROLOGICAL: Patient is awake, alert and oriented x3. Assessment: Acute diverticulitis with perforation and phlegmonous change of the descending colon with plan for sigmoid colectomy and possible colostomy on 10/17 Congenital aortic stenosis, status post balloon valvuloplasty, initial Ross procedure, mechanical aortic valve placement in 2015 Ascending aortic aneurysm status post repair in 2016 Hypertension Hyperlipidemia History of stroke and TIA likely related to mechanical valve History of medical noncompliance Plan: Continue patient's home cardiac medications Continue to hold Coumadin Patient to be started on heparin drip as soon as possible following surgery and transitioned back to Coumadin Patient is at intermediate risk for complications during the perioperative period. Further recommendations to follow based upon clinical course Thank you kindly for this consultation. Nurse practitioner note has been reviewed, I agree with documented findings and plan of care. Patient was seen and examined. Objective - Vital Signs Vital signs: Vital Signs Temp 98.0 F 10/18/23 06:47 Pulse 63 10/18/23 06:47 Resp 18 10/18/23 06:47 BP 149/89 10/18/23 06:47 Pulse Ox 96 10/18/23 06:47 FiO2 Intake & Output 10/17/23 10/18/23 10/18/23 18:59 06:59 18:59 Weight 108.862 kg Other: # Voids 1 - Labs CBC & Chem 7: 10/18/23 03:17 10/18/23 03:17 Labs: Abnormal Lab Results - Last 24 Hours (Table) 10/17/23 10/18/23 10/18/23 Range/Units 05:20 03:17 03:17 RBC 4.27 L (4.30-5.90) m/uL Hgb 12.5 L (13.0-17.5) gm/dL Hct 38.4 L (39.0-53.0) % PT 22.2 H 14.2 H (10.0-12.5) sec INR 2.2 H 1.4 H (<1.2) BUN (9-20) mg/dL 10/18/23 Range/Units 03:17 RBC (4.30-5.90) m/uL Hgb (13.0-17.5) gm/dL Hct (39.0-53.0) % PT (10.0-12.5) sec INR (<1.2) BUN 8 L (9-20) mg/dL
[2023-10-18] MEDS: LACTATED RINGERS 1,000 ML IV ONE ×2 (14:45→16:52)
[2023-10-18] MEDS: DEXAMETHASONE SOD PHOSPHATE 4 MG/ML 1 ML VIAL IVP ONE (14:58)
[2023-10-18] MEDS: ONDANSETRON 4 MG/2 ML VIAL IVP ONE (14:58)
[2023-10-18] MEDS: METOPROLOL TARTRATE 5 MG/5 ML VIAL IVP ONE (15:20)
[2023-10-18] MEDS: MIDAZOLAM 2 MG/2 ML VIAL IVP ONE (15:38)
[2023-10-18] MEDS: fentaNYL (PF) 50 MCG/1 ML VIAL IVP ONE ×2 (15:38→18:12)
[2023-10-18] MEDS: HEPARIN SODIUM,PORCINE 5,000 UNIT/ML 1 ML VIAL SQ ONE (15:53)
--- NOTE | 2023-10-18 15:57 | P.ANPRN ---
Procedure Note - Anesthesia - Nerve Block Performed Bilateral Rectus Abdominis Single Time Out Performed: Yes (1537) Date of Procedure: 10/18/23 Procedure Start Time: 15:38 Procedure Stop Time: 15:43 Location of Patient: PreOp Indication: Acute Post-Operative Pain, Requested by Surgeon Specifically requested for management of pain by DrAndreas: Uriel France Sedation Type: Sedate with meaningful contact maintained Preparation: Sterile Prep Position: Supine Catheter: None Needle Types: Pajunk Needle Gauge: 21 Ultrasound used to visualize needle placement: Yes Ultrasound used to observe medication spread: Yes Injectate: 0.5% Ropivacaine (see comment for volume) (20cc +10cc nacl pf each side) Blood Aspirated: No Pain Paresthesia on Injection Noted: No Resistance on Injection: Normal Image Stored and Saved: Yes Events: Uneventful and Well Tolerated
[2023-10-18] MEDS ORDERED: ROCURONIUM 10 MG/ML (5 ML VIAL) IV ONE (16:07)
[2023-10-18] MEDS ORDERED: fentaNYL (PF) 50 MCG/ML 2 ML AMP ONE (16:07)
[2023-10-18] MEDS ORDERED: SUCCINYLCHOLINE CHLORIDE 200 MG/10 ML VIAL IV ONE (16:07)
[2023-10-18] MEDS ORDERED: LIDOCAINE 1% INJ 10MG/ML (20 ML MDV) ONE (16:07)
[2023-10-18] MEDS ORDERED: HYDROmorphone (PF) 1 MG/ML ONE (16:07)
[2023-10-18] MEDS ORDERED: KETOROLAC 15 MG/ML 1 ML VIAL ONE (16:07)
[2023-10-18] MEDS ORDERED: ROPIVACAINE 5 MG/ML 30 ML VIAL ONE (16:07)
[2023-10-18] MEDS ORDERED: GLYCOPYRROLATE 0.2 MG/ML 2 ML VIAL ONE (16:07)
[2023-10-18] MEDS ORDERED: PROPOFOL 10 MG/ML 20 ML VIAL IV ONE (16:07)
[2023-10-18] MEDS ORDERED: MIDAZOLAM 2 MG/2 ML VIAL ONE (16:07)
[2023-10-18] MEDS ORDERED: SODIUM CHLORIDE 0.9% (PF) 10 ML VIAL ONE (16:07)
[2023-10-18] MEDS ORDERED: NEOSTIGMINE 1 MG/ML 10 ML VIAL ONE (16:07)
[2023-10-18] MEDS ORDERED: HYDROmorphone 1 MG/ML 1 ML SYRINGE IVP PRN (17:28)
[2023-10-18] MEDS ORDERED: ONDANSETRON 4 MG/2 ML VIAL IVP PRN (17:28)
--- NOTE | 2023-10-18 17:28 | P.OP ---
Date of Procedure: 10/18/23 Preoperative Diagnosis: diverticulitis of left and sigmoid colon Postoperative Diagnosis: intramural abscess of left and sigmoid colon Procedure(s) Performed: left and sigmoid colon resection Takedown of splenic flexure Repair of incarcerated ventral hernia Partial omentectomy Anesthesia: MAC Surgeon: Uriel France Estimated Blood Loss (ml): 50 Pathology: other (left and sigmoid colon) Description of Procedure: the patient's placed on the operating table in the supine position. He received general endotracheal anesthesia. His abdomen was prepped and draped usual sterile fashion. The patient was placed in dorsal lithotomy position. A midline skin incision was made. Then using left cautery the subcutaneous tissue divided. The fascia was then divided midline.there was an incarcerated ventral hernia located above the umbilicus. Incarcerated omentum was sent to pathology. The Bookwalter tract with wound. The area was explored. There was evidence of diverticulitis and sigmoid colon. The white line Toldt was divided. The left colon was mobilized. The sigmoid colon was transected at the level of the left colon. And then using the LigaSure device mesentery the bowel was divided. And then the distal sigmoid colon was transected with the YOLY stapler. There appeared to be an intramural abscess here. Specimens of pathology. The appeared to be evidence of another intramural abscess in the proximal left colon. At this point the bowel was transected with the YOLY stapler. Then using the LigaSure device the mesentery the bowel was divided. It was decided not to perform an anastomosis due to the inflammation of the bowel. This point the abdomen was irrigated. The distal colon was brought up to the left abdominal wall for colonoscopy. The fascia is closed loop #1 PDS suture. The ventral hernia was repaired during fascial closure. Skin was closed ronnie. The colostomy matured with 3-0 Vicryl suture. Sterile dressing applied. Patient top she will. He was sent to recovery in stable condition.
[2023-10-18] MEDS: HYDROmorphone 0.5 MG/0.5 ML SYRINGE IVP ONE ×3 (17:37→18:00)
[2023-10-18] MEDS: hydrALAZINE HCL 20 MG/ML 1 ML VIAL IVP ONE (18:20)
[2023-10-18] MEDS: LACTATED RINGERS 1,000 ML IV SCH (18:47)
[2023-10-18] MEDS: HEPARIN SODIUM,PORCINE 5,000 UNIT/ML 1 ML VIAL SQ SCH (23:08)
[2023-10-19] MEDS: ALVIMOPAN 12 MG CAPSULE PO SCH (08:25)
--- NOTE | 2023-10-19 11:10 | P.PN ---
Subjective Progress Note Date: 10/19/23 CHIEF COMPLAINT: Perforated diverticulitis HISTORY OF PRESENT ILLNESS: Patient is postop day #1 status post left colon and sigmoid colon resection, takedown of splenic flexure, repair of incarcerated ventral hernia and partial omentectomy. Patient reports pain medication is lasting only an hour. He is complaining of hiccups. He did have nausea. No vomiting. Afebrile. Mild tachycardia during the night now improved. WBC 6.9 Hgb 12.5 INR 1.4 sodium is 137 potassium is 4.0 creatinine 0.89 PHYSICAL EXAM: VITAL SIGNS: Reviewed. GENERAL: Well-developed in no acute distress. ABDOMEN: Soft. Mildly distended. Tender at incision site. Incisional dressing with small area of saturation. Ostomy with stoma beefy red. No stool output. NEUROLOGIC: Alert and oriented. Cranial nerves II through XII grossly intact. ASSESSMENT: 1. Diverticulitis with intramural abscess of the left and sigmoid colon 2. Congenital aortic valve stenosis with mechanical valve PLAN: -Keep patient n.p.o. -Pain medication has been adjusted -Continue IV fluids -Continue antibiotics -Continue antiemetics -Encourage patient to use incentive spirometer -Encourage patient to increase activity level -Patient can start heparin drip tomorrow for anticoagulation -GI prophylaxis Protonix and DVT prophylaxis subcu heparin Physician Historical Manuscripts Curator note has been reviewed by physician. Signing provider agrees with the documented findings, assessment, and plan of care. Objective - Vital Signs Vital signs: Vital Signs Temp 98.7 F 10/19/23 07:01 Pulse 85 10/19/23 07:01 Resp 16 10/19/23 07:01 BP 164/90 10/19/23 07:01 Pulse Ox 95 10/19/23 07:01 FiO2 Intake & Output 10/18/23 10/19/23 10/19/23 18:59 06:59 18:59 Intake Total 1300 Output Total 200 Balance 1100 Weight 108.862 kg 108.862 kg Intake: IV 1300 Output: Urine 150 Estimated Blood Loss 50 Other: Voiding Method Indwelling Catheter Indwelling Catheter # Voids 0 - Labs CBC & Chem 7: 10/18/23 03:17 10/18/23 03:17 Labs: Microbiology - Last 24 Hours (Table) 10/17/23 08:51 Blood Culture - Preliminary Blood 10/17/23 09:01 Blood Culture - Preliminary Blood
[2023-10-19] MEDS: HYDROmorphone 0.5 MG/0.5 ML SYRINGE IVP PRN (12:15)
--- NOTE | 2023-10-19 13:00 | P.PN ---
Subjective Progress Note Date: 10/19/23 Reason for Consult (text): Preop risk assessment History of present illness: History of present illness: This is a 43-year-old male patient of Dr. Lenz with past medical history of congenital aortic stenosis status post balloon valvuloplasty, Ross procedure and then mechanical aortic valve replacement, history of ascending aortic aneurysm status post ascending aortic repair, stroke, as well as TIA, hypertension, some concern for medical noncompliance. We have been asked to evaluate the patient for preop clearance. Patient states that around 3 in the morning he started having abdominal pain which she apparently has had on and off for the past 2 months. He had 2 bloody stools with clots and came into the hospital for evaluation. Patient has been seen by general surgery with plan for sigmoid colectomy and possible colostomy which is scheduled for tomorrow with Dr. France. Coumadin has been placed on hold. Patient denies having any difficulty in breathing no chest pain or chest pressure, no palpitations, no lightheadedness or dizziness and no syncopal episodes. He states he does have a little bit of nausea. Patient is seen today in the emergency center waiting for a bed on the [facility] floor. EKG sinus rhythm with right bundle branch block CTA of the abdomen pelvis revealed complicated diverticulitis perforation with phlegmonous change just outside the lumen of the descending colon. No organizing fluid collection at this time however felt to represent early abscess formation. No evidence of GI hemorrhage. WBC 9.8, hemoglobin 15. INR 2.2. Electrolytes and renal function normal. Troponin negative x 1. Home cardiac medications: Metoprolol tartrate 100 mg twice daily, Coumadin alternating 6 mg and 4 mg Cardiac catheterization in 2015 revealed normal coronary arteries Stress echocardiogram performed in the office on 07/20/2023 revealed nonspecific stress EKG portion secondary to baseline EKG abnormalities with accentuation of baseline EKG abnormalities. Normal stress echo portion. Normal LV function 55%. Good exercise tolerance. Echocardiogram performed 07/13/2023 revealed EF of 50% grade 2 diastolic dysfu nction, moderate LVH, AV prosthesis with peak gradient 11, mean gradient 6, moderate mitral regurgitation, moderate to severe pulmonic insufficiency pressure half-time 104 MS, moderate pulmonic stenosis, RVSP 58. 5/15 Patient is seen today in follow-up on the observation unit. He is scheduled for surgery today. He denies having any chest pain or shortness of breath. He states his abdomen remains painful but controlled with current medications. Nausea is improved. INR is 1.4. Hemoglobin 12.5, BUN 8 and creatinine 0.89, potassium 4. 5/16 Yesterday, patient underwent left and sigmoid colon resection, takedown of splenic flexure and repair of incarcerated ventral hernia, partial omentectomy. Patient is complaining of abdominal pain and tenderness. He denies having any chest pain. He has burping but not having flatulence. He states he did not sleep well last night. Blood pressure 164/90, heart rate 85, pulse ox 95% on 1/2 L nasal cannula. General surgery has cleared the patient to resume heparin tomorrow. Physical examination: Gen: This is a 43-year-old male appears to be in no acute distress. VS: reviewed HEENT: Head is atraumatic, normocephalic. Pupils equal, round. Sclerae is anicteric. NECK: Supple. No JVD. LUNGS: Clear to auscultation. No wheezes or rhonchi. No intercostal retractions. HEART: Regular rate and rhythm. 3/6 systolic murmur with click. ABDOMEN: Soft + tenderness. EXTREMITIES: No pedal edema. No calf tenderness. NEUROLOGICAL: Patient is awake, alert and oriented x3. Assessment: Acute diverticulitis with perforation and phlegmonous change of the descending colon with plan for sigmoid colectomy and possible colostomy on 10/17 Congenital aortic stenosis, status post balloon valvuloplasty, initial Ross procedure, mechanical aortic valve placement in 2016 Ascending aortic aneurysm status post repair in 2016 Hypertension Hyperlipidemia History of stroke and TIA likely related to mechanical valve History of medical noncompliance Plan: Continue patient's home cardiac medications Start patient on heparin drip tomorrow as well as start Coumadin Pharmacy to dose Coumadin Further recommendations to follow based upon clinical course Nurse practitioner note has been reviewed, I agree with documented findings and plan of care. Patient was seen and examined. Objective - Vital Signs Vital signs: Vital Signs Temp 98.7 F 10/19/23 07:01 Pulse 85 10/19/23 07:01 Resp 16 10/19/23 07:01 BP 164/90 10/19/23 07:01 Pulse Ox 95 10/19/23 07:01 FiO2 Intake & Output 10/18/23 10/19/23 10/19/23 18:59 06:59 18:59 Intake Total 1300 Output Total 200 Balance 1100 Weight 108.862 kg 108.862 kg Intake: IV 1300 Output: Urine 150 Estimated Blood Loss 50 Other: Voiding Method Indwelling Catheter # Voids 0 - Labs CBC & Chem 7: 10/18/23 03:17 10/18/23 03:17 Labs: Microbiology - Last 24 Hours (Table) 10/17/23 08:51 Blood Culture - Preliminary Blood 10/17/23 09:01 Blood Culture - Preliminary Blood
--- NOTE | 2023-10-19 20:37 | PN ---
PROGRESS NOTE CHIEF COMPLAINT: Status post subtotal colectomy and colostomy for perforated diverticulitis. HISTORY OF PRESENT ILLNESS: This gentleman is doing fairly well, but he is having quite a bit of discomfort. He is not vomiting. He has had no fever. PHYSICAL EXAMINATION: CHEST: Clear. CARDIAC: Normal. ABDOMEN: Soft and colostomy looks viable. IMPRESSION: Status post subtotal colectomy and colostomy for diverticulitis. PLAN: Continue to follow with Surgery postoperatively. MMODL / IJN: [id number] /
[2023-10-19] MEDS: ZOLPIDEM 5 MG TAB PO STA (21:16)
--- NOTE | 2023-10-20 09:01 | P.PN ---
Subjective Progress Note Date: 10/20/23 Reason for Consult (text): Preop risk assessment History of present illness: History of present illness: This is a 43-year-old male patient of Dr. Lenz with past medical history of congenital aortic stenosis status post balloon valvuloplasty, Ross procedure and then mechanical aortic valve replacement, history of ascending aortic aneurysm status post ascending aortic repair, stroke, as well as TIA, hypertension, some concern for medical noncompliance. We have been asked to evaluate the patient for preop clearance. Patient states that around 3 in the morning he started having abdominal pain which she apparently has had on and off for the past 2 months. He had 2 bloody stools with clots and came into the hospital for evaluation. Patient has been seen by general surgery with plan for sigmoid colectomy and possible colostomy which is scheduled for tomorrow with Dr. [place]. Coumadin has been placed on hold. Patient denies having any difficulty in breathing no chest pain or chest pressure, no palpitations, no lightheadedness or dizziness and no syncopal episodes. He states he does have a little bit of nausea. Patient is seen today in the emergency center waiting for a bed on the [facility] floor. EKG sinus rhythm with right bundle branch block CTA of the abdomen pelvis revealed complicated diverticulitis perforation with phlegmonous change just outside the lumen of the descending colon. No organizing fluid collection at this time however felt to represent early abscess formation. No evidence of GI hemorrhage. WBC 9.8, hemoglobin 15. INR 2.2. Electrolytes and renal function normal. Troponin negative x 1. Home cardiac medications: Metoprolol tartrate 100 mg twice daily, Coumadin alternating 6 mg and 4 mg Cardiac catheterization in 2015 revealed normal coronary arteries Stress echocardiogram performed in the office on 07/20/2023 revealed nonspecific stress EKG portion secondary to baseline EKG abnormalities with accentuation of baseline EKG abnormalities. Normal stress echo portion. Normal LV function 55%. Good exercise tolerance. Echocardiogram performed 07/13/2023 revealed EF of 50% grade 2 diastolic dysfu nction, moderate LVH, AV prosthesis with peak gradient 11, mean gradient 6, moderate mitral regurgitation, moderate to severe pulmonic insufficiency pressure half-time 104 MS, moderate pulmonic stenosis, RVSP 58. 5/15 Patient is seen today in follow-up on the observation unit. He is scheduled for surgery today. He denies having any chest pain or shortness of breath. He states his abdomen remains painful but controlled with current medications. Nausea is improved. INR is 1.4. Hemoglobin 12.5, BUN 8 and creatinine 0.89, potassium 4. 10/18 Yesterday, patient underwent left and sigmoid colon resection, takedown of splenic flexure and repair of incarcerated ventral hernia, partial omentectomy. Patient is complaining of abdominal pain and tenderness. He denies having any chest pain. He has burping but not having flatulence. He states he did not sleep well last night. Blood pressure 164/90, heart rate 85, pulse ox 95% on 1/2 L nasal cannula. General surgery has cleared the patient to resume heparin tomorrow. 10/19 Patient states that his abdominal pain is better controlled today. He does have a little bit of nausea no vomiting. He complains of hiccups he has not passed gas yet. He has been cleared to start anticoagulation with Coumadin and heparin today. Blood pressure 145/87, heart rate 92, pulse ox 94% on room air. INR yesterday was 1.4. No blood work report available at the time of this dictation. Physical examination: Gen: This is a 43-year-old male appears to be in no acute distress. VS: reviewed HEENT: Head is atraumatic, normocephalic. Pupils equal, round. Sclerae is anicteric. NECK: Supple. No JVD. LUNGS: Clear to auscultation. No wheezes or rhonchi. No intercostal retractions. HEART: Regular rate and rhythm. 3/6 systolic murmur with click. ABDOMEN: Soft + tenderness. EXTREMITIES: No pedal edema. No calf tenderness. NEUROLOGICAL: Patient is awake, alert and oriented x3. Assessment: Acute diverticulitis with perforation and phlegmonous change of the descending colon with plan for sigmoid colectomy and possible colostomy on 10/17 Congenital aortic stenosis, status post balloon valvuloplasty, initial Ross procedure, mechanical aortic valve placement in 2016 Ascending aortic aneurysm status post repair in 2016 Hypertension Hyperlipidemia History of stroke and TIA likely related to mechanical valve History of medical noncompliance Plan: Continue patient's home cardiac medications Patient will be started on Coumadin and heparin today Pharmacy to dose Coumadin If patient is close to discharge and INR is not therapeutic, consider Lovenox bridging. Further recommendations to follow based upon clinical course Nurse practitioner note has been reviewed, I agree with documented findings and plan of care. Patient was seen and examined. Objective - Vital Signs Vital signs: Vital Signs Temp 99.2 F 10/19/23 13:32 Pulse 85 10/19/23 20:00 Resp 20 10/19/23 20:00 BP 158/100 10/19/23 13:32 Pulse Ox 97 10/19/23 13:32 FiO2 Intake & Output 10/19/23 10/20/23 10/20/23 18:59 06:59 18:59 Intake Total 240 Output Total 1075 Balance -835 Intake: Oral 240 Output: Urine 1075 Uretheral (Vora) 1075 Other: Voiding Method Indwelling Catheter Indwelling Catheter - Labs CBC & Chem 7: 10/18/23 03:17 10/18/23 03:17 Labs: Microbiology - Last 24 Hours (Table) 10/17/23 08:51 Blood Culture - Preliminary Blood 10/17/23 09:01 Blood Culture - Preliminary Blood
[2023-10-20] MEDS: HYDROmorphone 1 MG/ML 1 ML SYRINGE IVP PRN (09:20)
[2023-10-20] MEDS: ACETAMINOPHEN IV (For NPO) 1,000 MG in EMPTY BAG 1 BAG IVPB SCH (09:21)
[2023-10-20 10:02] LABS: Eosinophils % (A) 2 %; HCT 40.6 % (39.0-53.0); HGB 13.7 gm/dL (13.0-17.5); Lymphocytes % (A) 9 %; MCH 29.8 pg (25.0-35.0); MCHC 33.7 g/dL (31.0-37.0); MCV 88.6 fL (80.0-100.0); Mean Platelet Volume 7.6; Monocytes % (A) 9 %; Neutrophils % (A) 78 %; Platelet Count 353 k/uL (150-450); RBC 4.58 m/uL (4.30-5.90); RDW 13.6 % (11.5-15.5); WBC 11.7 k/uL (3.8-10.6)
[2023-10-20 10:03] LABS: Basophils % (A) 0 %; Eosinophils # (A) 0.2 k/uL (0-0.7); Lymphocytes # (A) 1.1 k/uL (1.0-4.8); Neutrophils # (A) 9.2 k/uL (1.3-7.7)
[2023-10-20 10:11] LABS: INR 1.1 (<1.2); Partial Thromboplastin Time 25.6 sec (22.0-30.0); Prothrombin Time 11.5 sec (10.0-12.5)
[2023-10-20 10:23] LABS: HCT 40.3 % (39.6-50.0); HGB 13.8 g/dL (13.0-17.0); MCH 30.1 pg (27.0-32.0); MCHC 34.2 g/dL (32.0-37.0); MCV 87.8 FL (80.0-97.0); Mean Platelet Volume 10.1 FL (9.5-12.2); NRBC Per 100 WBC 0 X 10*3/uL (0.00-0.01); Platelet Count 399 X 10*3/uL (140-440); RBC 4.59 X 10*6/uL (4.40-5.60); RDW 13.3 % (11.5-14.5); WBC 11.41 X 10*3/uL (4.50-10.00)
[2023-10-20] MEDS: HEPARIN SOD,PORK IN 0.45% NACL 25,000 UNIT in 0.45% NACL 1 250ML.BAG IV SCH (10:27)
[2023-10-20] MEDS: HEPARIN SODIUM 1,000 UN/ML (10ML VL) IV ONE (10:28)
[2023-10-20 10:40] LABS: BUN/Creat Ratio 11.33 Ratio (12.00-20.00); Blood Urea Nitrogen 10.2 mg/dL (9.0-27.0); Calcium 8.8 mg/dL (8.7-10.3); Carbon Dioxide 23.8 mmol/L (21.6-31.8); Chloride 97 mmol/L (96-109); Glucose 102 mg/dL (70-110); Potassium 4.3 mmol/L (3.5-5.5); Sodium 134 mmol/L (135-145)
[2023-10-20 10:54] LABS: Basophils # (A) 0.05 X 10*3/uL (0.00-0.10); Basophils % (A) 0.4 %; Eosinophils # (A) 0.07 X 10*3/uL (0.04-0.35); Eosinophils % (A) 0.6 %; Lymphocytes # (A) 1.03 X 10*3/uL (0.90-5.00); Monocytes # (A) 1.65 X 10*3/uL (0.20-1.00); Monocytes % (A) 14.5 %; Neutrophils # (A) 8.52 X 10*3/uL (1.80-7.70); Neutrophils % (A) 74.7 %; Polychromasia 2+
--- NOTE | 2023-10-20 13:00 | P.PN ---
Subjective Progress Note Date: 10/20/23 CHIEF COMPLAINT: Perforated diverticulitis HISTORY OF PRESENT ILLNESS: Patient is postop day #2 status post left colon and sigmoid colon resection, takedown of splenic flexure, repair of incarcerated ventral hernia and partial omentectomy. Patient complains of abdominal pain. He denies any nausea or vomiting. No stool output from ostomy. Afebrile. WBC 11.7 Hgb 13.7 INR 1.1 PHYSICAL EXAM: VITAL SIGNS: Reviewed. GENERAL: Well-developed in no acute distress. ABDOMEN: Soft. Mildly distended. Tender at incision site and tender to the right side of the abdomen. Incisional dressing with small area of saturation. Ostomy with stoma beefy red. No stool output. NEUROLOGIC: Alert and oriented. Cranial nerves II through XII grossly intact. ASSESSMENT: 1. Diverticulitis with intramural abscess of the left and sigmoid colon 2. Congenital aortic valve stenosis with mechanical valve fluid PLAN: -Keep patient n.p.o. -Pain medication has been adjusted further with IV Tylenol added and Dilaudid increased to 1 mg every 2 hours as needed for pain -Okay to start IV heparin for anticoagulation. Patient has mechanical aortic valve. -Continue IV fluids -Continue antibiotics -Continue antiemetics -Encourage patient to use incentive spirometer -Encourage patient to increase activity level -Discontinue Vora catheter -Change surgical dressing today -GI prophylaxis Protonix Physician Leasing Director note has been reviewed by physician. Signing provider agrees with the documented findings, assessment, and plan of care. Objective - Vital Signs Vital signs: Vital Signs Temp 97.6 F 10/20/23 07:30 Pulse 92 10/20/23 07:30 Resp 16 10/20/23 07:30 BP 145/87 10/20/23 07:30 Pulse Ox 94 L 10/20/23 07:30 FiO2 Intake & Output 10/19/23 10/20/23 10/20/23 18:59 06:59 18:59 Intake Total 240 Output Total 1075 Balance -835 Intake: Oral 240 Output: Urine 1075 Uretheral (Vora) 1075 Other: Voiding Method Indwelling Catheter Indwelling Catheter - Labs CBC & Chem 7: 10/20/23 09:36 10/20/23 07:03 Labs: Abnormal Lab Results - Last 24 Hours (Table) 10/20/23 Range/Units 09:36 WBC 11.7 H (3.8-10.6) k/uL Neutrophils # 9.2 H (1.3-7.7) k/uL Microbiology - Last 24 Hours (Table) 10/17/23 08:51 Blood Culture - Preliminary Blood 10/17/23 09:01 Blood Culture - Preliminary Blood
[2023-10-20 13:25] VITALS: BMI 31.6
[2023-10-20] MEDS: WARFARIN 10 MG TAB PO ONE (17:30)
[2023-10-20] MEDS: HEPARIN SODIUM 1,000 UN/ML (10ML VL) IV PRN (18:18)
--- NOTE | 2023-10-21 00:18 | PN ---
PROGRESS NOTE DATE OF SERVICE: 10/20/2023 CHIEF COMPLAINT: Status post subtotal colectomy for perforated diverticulum. HISTORY OF PRESENT ILLNESS: This gentleman is doing fairly well and pain is a bit better. PHYSICAL EXAMINATION: CHEST: Clear. CARDIAC: Normal. GENERAL: He is afebrile. VITAL SIGNS: Normal. GI: The colostomy is not functional yet. IMPRESSION: Status post subtotal colectomy for perforated diverticulitis. PLAN: Continue with IV fluids and analgesics. MMODL / IJN: [id number] /
[2023-10-21 06:28] LABS: Partial Thromboplastin Time 45.7 sec (22.0-30.0); Prothrombin Time 10.7 sec (10.0-12.5)
--- NOTE | 2023-10-21 07:18 | P.PN ---
Subjective Progress Note Date: 10/21/23 History of present illness: History of present illness: This is a 43-year-old male patient of Dr. Lenz with past medical history of congenital aortic stenosis status post balloon valvuloplasty, Ross procedure and then mechanical aortic valve replacement, history of ascending aortic aneurysm status post ascending aortic repair, stroke, as well as TIA, hypertension, some concern for medical noncompliance. We have been asked to evaluate the patient for preop clearance. Patient states that around 3 in the morning he started having abdominal pain which she apparently has had on and off for the past 2 months. He had 2 bloody stools with clots and came into the hospital for evaluation. Patient has been seen by general surgery with plan for sigmoid colectomy and possible colostomy which is scheduled for tomorrow with Dr. [place]. Coumadin has been placed on hold. Patient denies having any difficulty in breathing no chest pain or chest pressure, no palpitations, no lightheadedness or dizziness and no syncopal episodes. He states he does have a little bit of nausea. Patient is seen today in the emergency center waiting for a bed on the [facility] floor. EKG sinus rhythm with right bundle branch block CTA of the abdomen pelvis revealed complicated diverticulitis perforation with phlegmonous change just outside the lumen of the descending colon. No organizi ng fluid collection at this time however felt to represent early abscess formation. No evidence of GI hemorrhage. WBC 9.8, hemoglobin 15. INR 2.2. Electrolytes and renal function normal. Troponin negative x 1. Home cardiac medications: Metoprolol tartrate 100 mg twice daily, Coumadin alternating 6 mg and 4 mg Cardiac catheterization in 2015 revealed normal coronary arteries Stress echocardiogram performed in the office on 07/20/2023 revealed nonspecific stress EKG portion secondary to baseline EKG abnormalities with accentuation of baseline EKG abnormalities. Normal stress echo portion. Normal LV function 55%. Good exercise tolerance. Echocardiogram performed 07/13/2023 revealed EF of 50% grade 2 diastolic dysfunction, moderate LVH, AV prosthesis with peak gradient 11, mean gradient 6, moderate mitral regurgitation, moderate to severe pulmonic insufficiency pressure half-time 104 MS, moderate pulmonic stenosis, RVSP 58. 515 Patient is seen today in follow-up on the observation unit. He is scheduled for surgery today. He denies having any chest pain or shortness of breath. He states his abdomen remains painful but controlled with current medications. Nausea is improved. INR is 1.4. Hemoglobin 12.5, BUN 8 and creatinine 0.89, potassium 4. 10/18 Yesterday, patient underwent left and sigmoid colon resection, takedown of splenic flexure and repair of incarcerated ventral hernia, partial omentectomy. Patient is complaining of abdominal pain and tenderness. He denies having any chest pain. He has burping but not having flatulence. He states he did not sleep well last night. Blood pressure 164/90, heart rate 85, pulse ox 95% on 1/2 L nasal cannula. General surgery has cleared the patient to resume heparin tomorrow. 10/19 Patient states that his abdominal pain is better controlled today. He does have a little bit of nausea no vomiting. He complains of hiccups he has not passed gas yet. He has been cleared to start anticoagulation with Coumadin and heparin today. Blood pressure 145/87, heart rate 92, pulse ox 94% on room air. INR yesterday was 1.4. No blood work report available at the time of this dictation. Physical examination: Gen: This is a 43-year-old male appears to be in no acute distress. VS: reviewed HEENT: Head is atraumatic, normocephalic. Pupils equal, round. Sclerae is anicteric. NECK: Supple. No JVD. LUNGS: Clear to auscultation. No wheezes or rhonchi. No intercostal retractions. HEART: Regular rate and rhythm. [place] mechanical click audible. . ABDOMEN: Soft + tenderness. EXTREMITIES: No pedal edema. No calf tenderness. NEUROLOGICAL: Patient is awake, alert and oriented x3. Assessment: Acute diverticulitis with perforation S/p left colon and sigmoid colon resection 10/18/2023 Congenital aortic stenosis, status post balloon valvuloplasty, initial Ross procedure, mechanical aortic valve placement in 2016 Ascending aortic aneurysm status post repair in 2016 Hypertension Hyperlipidemia History of stroke and TIA likely related to mechanical valve History of medical noncompliance Plan: Possible plan for redo surgery. Warfarin is on hold. Continuing IV heparin drip. No concerns of bleeding. Continue patient's home cardiac medications Objective - Vital Signs Vital signs: Vital Signs Temp 98.1 F 10/21/23 01:47 Pulse 84 10/21/23 01:47 Resp 18 10/21/23 01:47 BP 136/81 10/21/23 01:47 Pulse Ox 93 L 10/21/23 01:47 FiO2 Intake & Output 10/20/23 10/21/23 10/21/23 18:59 06:59 18:59 Intake Total 77.927 147.828 Output Total 1200 800 Balance -1122.073 -652.172 Weight 108.862 kg Intake: Intake, IV Titration 77.927 147.828 Amount Heparin Sod,Pork in 0.45% 77.927 147.828 NaCl 25,000 unit In 0.45 % NaCl 1 250ml.bag @ 9.1 UNITS/KG/HR 9.906 mls/hr IV .Q24H [facility] Rx#: [id number] Output: Urine 1200 800 Other: Voiding Method Toilet - Labs CBC & Chem 7: 10/20/23 09:36 10/20/23 07:03 Labs: Abnormal Lab Results - Last 24 Hours (Table) 10/20/23 10/20/23 10/20/23 Range/Units 07:03 07:03 09:36 WBC 11.41 H 11.7 H (4.50-10.00) X 10*3/uL Immature Gran # 0.09 H (0.00-0.04) X 10*3/uL Neutrophils # 8.52 H 9.2 H (1.80-7.70) X 10*3/uL Monocytes # 1.65 H (0.20-1.00) X 10*3/uL Polychromasia 2+ A APTT (22.0-30.0) sec Sodium 134 L (135-145) mmol/L Anion Gap 13.20 H (4.00-12.00) mmol/L BUN/Creatinine Ratio 11.33 L (12.00-20.00) Ratio 10/20/23 10/20/23 10/21/23 Range/Units 17:04 23:51 05:13 WBC (4.50-10.00) X 10*3/uL Immature Gran # (0.00-0.04) X 10*3/uL Neutrophils # (1.80-7.70) X 10*3/uL Monocytes # (0.20-1.00) X 10*3/uL Polychromasia APTT 39.9 H 53.0 H 45.7 H (22.0-30.0) sec Sodium (135-145) mmol/L Anion Gap (4.00-12.00) mmol/L BUN/Creatinine Ratio (12.00-20.00) Ratio Microbiology - Last 24 Hours (Table) 10/17/23 08:51 Blood Culture - Preliminary Blood 10/17/23 09:01 Blood Culture - Preliminary Blood
[2023-10-21 09:35] LABS: Basophils # (A) 0.07 X 10*3/uL (0.00-0.10); Basophils % (A) 0.6 %; Eosinophils # (A) 0.35 X 10*3/uL (0.04-0.35); Eosinophils % (A) 2.9 %; HCT 37.4 % (39.6-50.0); HGB 12.7 g/dL (13.0-17.0); Lymphocytes # (A) 0.86 X 10*3/uL (0.90-5.00); Lymphocytes % (A) 7.2 %; MCH 29.5 pg (27.0-32.0); Mean Platelet Volume 9.6 FL (9.5-12.2); Monocytes % (A) 10.9 %; NRBC Per 100 WBC 0 X 10*3/uL (0.00-0.01); Neutrophils # (A) 9.23 X 10*3/uL (1.80-7.70); Neutrophils % (A) 77.6 %; Platelet Count 391 X 10*3/uL (140-440); RDW 13.2 % (11.5-14.5); WBC 11.91 X 10*3/uL (4.50-10.00)
[2023-10-21 09:58] LABS: BUN/Creat Ratio 11.12 Ratio (12.00-20.00); Blood Urea Nitrogen 8.9 mg/dL (9.0-27.0); Calcium 8.6 mg/dL (8.7-10.3); Carbon Dioxide 23.6 mmol/L (21.6-31.8); Chloride 99 mmol/L (96-109); Glucose 98 mg/dL (70-110); Sodium 135 mmol/L (135-145)
--- NOTE | 2023-10-21 11:26 | P.PN ---
Progress Note - Text Progress Note Date: 10/21/23 CHIEF COMPLAINT: Perforated diverticulitis HISTORY OF PRESENT ILLNESS: Patient is postop day #3 status post left colon and sigmoid colon resection, takedown of splenic flexure, repair of incarcerated ventral hernia and partial omentectomy. Patient complains of abdominal pain. He denies any nausea or vomiting. No stool output from ostomy. Afebrile. PHYSICAL EXAM: VITAL SIGNS: Reviewed. GENERAL: Well-developed in no acute distress. ABDOMEN: Soft. Mildly distended. Tender at incision site and tender to the right side of the abdomen. Incisional dressing with small area of saturation. Ostomy with stoma beefy red. No stool output. NEUROLOGIC: Alert and oriented. Cranial nerves II through XII grossly intact. ASSESSMENT: 1. Diverticulitis with intramural abscess of the left and sigmoid colon 2. Congenital aortic valve stenosis with mechanical valve fluid PLAN: -Keep patient n.p.o. -Pain medication has been adjusted further with IV Tylenol added and Dilaudid increased to 1 mg every 2 hours as needed for pain -Okay to start IV heparin for anticoagulation. Patient has mechanical aortic valve. -Continue IV fluids -Continue antibiotics -Continue antiemetics -Encourage patient to use incentive spirometer -Encourage patient to increase activity level -Discontinue Vora catheter -GI prophylaxis Protonix
[2023-10-21] MEDS: WARFARIN 7.5 MG TAB PO ONE (19:07)
--- NOTE | 2023-10-21 21:19 | PN ---
PROGRESS NOTE DATE OF SERVICE: 10/21/2023 CHIEF COMPLAINT: Status post perforated diverticulum. HISTORY OF PRESENT ILLNESS: This gentleman is having quite a bit of persistent pain. He has had some difficulty with hiccuping most of the day. PHYSICAL EXAMINATION: CHEST: Clear. CARDIAC: Normal. ABDOMEN: Silent and colostomy is non-comfortable so far. He is having hiccups. IMPRESSION: 1. Status post subtotal sigmoid colectomy with colostomy for diverticulitis. 2. Hiccups. PLAN: No change in program. MMODL / IJN: [id number] /
--- NOTE | 2023-10-21 22:30 | PN ---
PROGRESS NOTE DATE OF SERVICE: 10/18/2023 CHIEF COMPLAINT: Status post perforated diverticulitis. HISTORY OF PRESENT ILLNESS: This gentleman is still having quite a bit of pain. He has had no fever or chills. PHYSICAL EXAMINATION: CHEST: Clear. CARDIAC: Normal. IMPRESSION: 1. Perforated diverticulum. 2. Status post aortic valve replacement with a with a history of aortic arch ascending aorta repair. PLAN: Continue with postop monitoring with surgery. MMODL / IJN: [id number] /
--- NOTE | 2023-10-22 00:10 | HP ---
HISTORY AND PHYSICAL CHIEF COMPLAINT: Abdominal pain. HISTORY OF PRESENT ILLNESS: First known admission for this 43-year-old white male who developed acute onset of lower abdominal pain. He had no fever, chills, trauma, etc. He did start to pass bright red blood. He came to the emergency room where a CT suggested perforated diverticulum and diverticulitis. REVIEW OF SYSTEMS: Otherwise unremarkable other than the pain. Past medical history, family history, and personal and social histories are all otherwise unremarkable or noncontributory. He does have a cardiac history with aortic valve disease. He has had previous CVA as well as TIA. MEDICATIONS: 1. Motrin. 2. Metronidazole. 3. Augmentin. 4. Coumadin. 5. Metoprolol. ALLERGIES: He is not allergic to any medication. SOCIAL HISTORY: He does not smoke. PHYSICAL EXAMINATION: VITAL SIGNS: Normal. HEENT: Head, ears, eyes, nose, mouth, and throat are normal. CHEST: Clear. HEART: Demonstrates a loud aortic valve sound with a faint systolic murmur. ABDOMEN: Rigid, bowel sounds are absent. EXTREMITIES: Normal. DIAGNOSES: Admitted to the hospital with diagnoses, 1. Perforated acute diverticulitis. 2. Status post congenital aortic valve disease. PLAN: 1. Bedrest. 2. IV fluids. 3. N.p.o. 4. Consult general surgery. MMODL / IJN: [id number] /
[2023-10-22 05:10] LABS: INR 1.2 (<1.2)
--- NOTE | 2023-10-22 07:53 | P.PN ---
Subjective Progress Note Date: 10/22/23 History of present illness: History of present illness: This is a 43-year-old male patient of Dr. Lenz with past medical history of congenital aortic stenosis status post balloon valvuloplasty, Ross procedure and then mechanical aortic valve replacement, history of ascending aortic aneurysm status post ascending aortic repair, stroke, as well as TIA, hypertension, some concern for medical noncompliance. We have been asked to evaluate the patient for preop clearance. Patient states that around 3 in the morning he started having abdominal pain which she apparently has had on and off for the past 2 months. He had 2 bloody stools with clots and came into the hospital for evaluation. Patient has been seen by general surgery with plan for sigmoid colectomy and possible colostomy which is scheduled for tomorrow with Dr. [place]. Coumadin has been placed on hold. Patient denies having any difficulty in breathing no chest pain or chest pressure, no palpitations, no lightheadedness or dizziness and no syncopal episodes. He states he does have a little bit of nausea. Patient is seen today in the emergency center waiting for a bed on the [facility] floor. EKG sinus rhythm with right bundle branch block CTA of the abdomen pelvis revealed complicated diverticulitis perforation with phlegmonous change just outside the lumen of the descending colon. No organizi ng fluid collection at this time however felt to represent early abscess formation. No evidence of GI hemorrhage. WBC 9.8, hemoglobin 15. INR 2.2. Electrolytes and renal function normal. Troponin negative x 1. Home cardiac medications: Metoprolol tartrate 100 mg twice daily, Coumadin alternating 6 mg and 4 mg Cardiac catheterization in 2015 revealed normal coronary arteries Stress echocardiogram performed in the office on 07/20/2023 revealed nonspecific stress EKG portion secondary to baseline EKG abnormalities with accentuation of baseline EKG abnormalities. Normal stress echo portion. Normal LV function 55%. Good exercise tolerance. Echocardiogram performed 07/13/2023 revealed EF of 50% grade 2 diastolic dysfunction, moderate LVH, AV prosthesis with peak gradient 11, mean gradient 6, moderate mitral regurgitation, moderate to severe pulmonic insufficiency pressure half-time 104 MS, moderate pulmonic stenosis, RVSP 58. 10/22/2023 Blood pressure 154/95, heart rate 95 bpm, INR is 1.2., Coumadin is on hold for anticipated surgery. Continues to be on IV heparin drip. Hemoglobin yesterday was 12.7 which is stable. Physical examination: Gen: This is a 43-year-old male appears to be in no acute distress. VS: reviewed HEENT: Head is atraumatic, normocephalic. Pupils equal, round. Sclerae is anicteric. NECK: Supple. No JVD. LUNGS: Clear to auscultation. No wheezes or rhonchi. No intercostal retractions. HEART: Regular rate and rhythm. [place] mechanical click audible. . ABDOMEN: Soft + tenderness. EXTREMITIES: No pedal edema. No calf tenderness. NEUROLOGICAL: Patient is awake, alert and oriented x3. Assessment: Acute diverticulitis with perforation S/p left colon and sigmoid colon resection 10/18/2023 Congenital aortic stenosis, status post balloon valvuloplasty, initial Ross procedure, mechanical aortic valve placement in 2015 Ascending aortic aneurysm status post repair in 2016 Hypertension Hyperlipidemia History of stroke and TIA likely related to mechanical valve History of medical noncompliance Plan: Possible plan for redo surgery. Warfarin is on hold. Continuing IV heparin drip. No concerns of bleeding. Continue patient's home cardiac medications Objective - Vital Signs Vital signs: Vital Signs Temp 98.7 F 10/21/23 19:49 Pulse 95 10/21/23 19:49 Resp 17 10/21/23 19:49 BP 154/95 10/21/23 19:49 Pulse Ox 95 10/21/23 19:49 FiO2 Intake & Output 10/21/23 10/22/23 10/22/23 18:59 06:59 18:59 Intake Total .939 357.188 Output Total 200 430 Balance -180.061 -72.812 Intake: Intake, IV Titration 19.939 357.188 Amount Heparin Sod,Pork in 0.45% 19.939 257.188 NaCl 25,000 unit In 0.45 % NaCl 1 250ml.bag @ 9.1 UNITS/KG/HR 9.906 mls/hr IV .Q24H [facility] Rx#: [id number] Piperacillin-Tazobactam 3 100 .375 gm In Sodium Chloride 0.9% 100 ml @ 25 mls/hr IVPB Q8H [facility] Rx#: [id number] Output: Urine 200 250 Stool 180 Other: Voiding Method Toilet Urinal # Voids 1 # Bowel Movements 2 - Labs CBC & Chem 7: 10/21/23 05:13 10/21/23 05:13 Labs: Abnormal Lab Results - Last 24 Hours (Table) 10/21/23 10/21/23 10/22/23 Range/Units 05:13 05:13 04:25 WBC 11.91 H (4.50-10.00) X 10*3/uL RBC 4.30 L (4.40-5.60) X 10*6/uL Hgb 12.7 L (13.0-17.0) g/dL Hct 37.4 L (39.6-50.0) % Immature Gran # 0.10 H (0.00-0.04) X 10*3/uL Neutrophils # 9.23 H (1.80-7.70) X 10*3/uL Lymphocytes # 0.86 L (0.90-5.00) X 10*3/uL Monocytes # 1.30 H (0.20-1.00) X 10*3/uL PT 13.0 H (10.0-12.5) sec INR 1.2 H (<1.2) APTT (22.0-30.0) sec Anion Gap 12.40 H (4.00-12.00) mmol/L BUN 8.9 L (9.0-27.0) mg/dL BUN/Creatinine Ratio 11.12 L (12.00-20.00) Ratio Calcium 8.6 L (8.7-10.3) mg/dL 10/22/23 Range/Units 04:25 WBC (4.50-10.00) X 10*3/uL RBC (4.40-5.60) X 10*6/uL Hgb (13.0-17.0) g/dL Hct (39.6-50.0) % Immature Gran # (0.00-0.04) X 10*3/uL Neutrophils # (1.80-7.70) X 10*3/uL Lymphocytes # (0.90-5.00) X 10*3/uL Monocytes # (0.20-1.00) X 10*3/uL PT (10.0-12.5) sec INR (<1.2) APTT 33.8 H (22.0-30.0) sec Anion Gap (4.00-12.00) mmol/L BUN (9.0-27.0) mg/dL BUN/Creatinine Ratio (12.00-20.00) Ratio Calcium (8.7-10.3) mg/dL Microbiology - Last 24 Hours (Table) 10/17/23 08:51 Blood Culture - Preliminary Blood 10/17/23 09:01 Blood Culture - Preliminary Blood
--- NOTE | 2023-10-22 11:43 | P.PN ---
Subjective Progress Note Date: 10/22/23 Principal diagnosis: Diverticulitis Patient is postop day 4 after Trejo's procedure for diverticulitis. He is having bowel function. He is thirsty. Asking for something to drink. No nausea or vomiting. Some hiccups. White blood cell count remains 11 yesterday. Objective - Vital Signs Vital signs: Vital Signs Temp 98.1 F 10/22/23 09:00 Pulse 75 10/22/23 09:00 Resp 16 10/22/23 09:00 BP 169/95 10/22/23 09:00 Pulse Ox 97 10/22/23 09:00 FiO2 Intake & Output 10/21/23 10/22/23 10/22/23 18:59 06:59 18:59 Intake Total 19.939 357.188 Output Total 200 430 Balance -180.061 -72.812 Intake: Intake, IV Titration 19.939 357.188 Amount Heparin Sod,Pork in 0.45% 19.939 257.188 NaCl 25,000 unit In 0.45 % NaCl 1 250ml.bag @ 9.1 UNITS/KG/HR 9.906 mls/hr IV .Q24H [facility] Rx#: [id number] Piperacillin-Tazobactam 3 100 .375 gm In Sodium Chloride 0.9% 100 ml @ 25 mls/hr IVPB Q8H [facility] Rx#: [id number] Output: Urine 200 250 Stool 180 Other: Voiding Method Toilet Urinal # Voids 1 # Bowel Movements 2 - Exam Abdomen: Soft, nondistended, incision with dressing in place, mild tenderness, ostomy functioning - Labs CBC & Chem 7: 10/21/23 05:13 10/21/23 05:13 Labs: Abnormal Lab Results - Last 24 Hours (Table) 10/22/23 10/22/23 Range/Units 04:25 04:25 PT 13.0 H (10.0-12.5) sec INR 1.2 H (<1.2) APTT 33.8 H (22.0-30.0) sec Assessment and Plan (1) Diverticulitis of colon with perforation Narrative/Plan: 43-year-old male with diverticulitis status post Trejo's procedure. Begin clear liquids. Ambulate. Recheck labs tomorrow. Current Visit: Yes Status: Acute Code(s): K57.20 - DVTRCLI OF LG INT W PERFORATION AND ABSCESS W/O BLEEDING SNOMED Code(s): 29861593
[2023-10-22] MEDS: SIMETHICONE 40 MG/0.6 ML DROPS 2,000 MG/30 ML BOTTLE PO SCH (13:45)
[2023-10-22 15:09] LABS: INR 1.5 (<1.2); Partial Thromboplastin Time 45.1 sec (22.0-30.0); Prothrombin Time 15.2 sec (10.0-12.5)
[2023-10-22] MEDS: WARFARIN 7.5 MG TAB PO ONE (18:03)
[2023-10-23 05:31] LABS: INR 1.6 (<1.2); Prothrombin Time 16.6 sec (10.0-12.5)
[2023-10-23 08:34] LABS: Basophils # (A) 0.11 X 10*3/uL (0.00-0.10); Basophils % (A) 0.9 %; Eosinophils # (A) 0.49 X 10*3/uL (0.04-0.35); Eosinophils % (A) 4.2 %; HCT 37.7 % (39.6-50.0); HGB 12.7 g/dL (13.0-17.0); Lymphocytes # (A) 1.23 X 10*3/uL (0.90-5.00); Lymphocytes % (A) 10.5 %; MCH 29.6 pg (27.0-32.0); MCHC 33.7 g/dL (32.0-37.0); MCV 87.9 FL (80.0-97.0); Mean Platelet Volume 9.7 FL (9.5-12.2); Monocytes # (A) 1.13 X 10*3/uL (0.20-1.00); Monocytes % (A) 9.7 %; NRBC Per 100 WBC 0 X 10*3/uL (0.00-0.01); Neutrophils # (A) 8.49 X 10*3/uL (1.80-7.70); Neutrophils % (A) 72.6 %; Platelet Count 457 X 10*3/uL (140-440); RBC 4.29 X 10*6/uL (4.40-5.60); RDW 13.2 % (11.5-14.5); WBC 11.69 X 10*3/uL (4.50-10.00)
[2023-10-23 08:47] LABS: Blood Urea Nitrogen 5.6 mg/dL (9.0-27.0); Chloride 99 mmol/L (96-109); Glucose 102 mg/dL (70-110); Potassium 3.6 mmol/L (3.5-5.5); Sodium 136 mmol/L (135-145)
[2023-10-23 08:48] LABS: Calcium 8.3 mg/dL (8.7-10.3); Carbon Dioxide 25.3 mmol/L (21.6-31.8)
[2023-10-23] MEDS: HYDROcodone/APAP 5-325MG 1 EACH TAB PO PRN (12:29)
--- NOTE | 2023-10-23 13:36 | P.PN ---
Subjective HISTORY OF PRESENT ILLNESS: This is a 43-year-old male patient of Dr. Lenz with past medical history of congenital aortic stenosis status post balloon valvuloplasty, Ross procedure and then mechanical aortic valve replacement, history of ascending aortic aneurysm status post ascending aortic repair, stroke, as well as TIA, hypertension, some concern for medical noncompliance. We have been asked to evaluate the patient for preop clearance. Patient states that around 3 in the morning he started having abdominal pain which she apparently has had on and off for the past 2 months. He had 2 bloody stools with clots and came into the hospital for evaluation. Patient has been seen by general surgery with plan for sigmoid colectomy and possible colostomy which is scheduled for tomorrow with Dr. [place]. Coumadin has been placed on hold. Patient denies having any difficulty in breathing no chest pain or chest pressure, no palpitations, no lightheadedness or dizziness and no syncopal episodes. He states he does have a little bit of nausea. Patient is seen today in the emergency center waiting for a bed on the [facility]. EKG sinus rhythm with right bundle branch block CTA of the abdomen pelvis revealed complicated diverticulitis perforation with phlegmonous change just outside the lumen of the descending colon. No org anizing fluid collection at this time however felt to represent early abscess formation. No evidence of GI hemorrhage. WBC 9.8, hemoglobin 15. INR 2.2. Electrolytes and renal function normal. Trop onin negative x 1. Home cardiac medications: Metoprolol tartrate 100 mg twice daily, Coumadin alternating 6 mg and 4 mg Cardiac catheterization in 2016 revealed normal coronary arteries Stress echocardiogram performed in the office on 07/20/2023 revealed nonspecific stress EKG portion secondary to baseline EKG abnormalities with accentuation of baseline EKG abnormalities. Normal stress echo portion. Normal LV function 55%. Good exercise tolerance. Echocardiogram performed 07/13/2023 revealed EF of 50% grade 2 diastolic dysfunction, moderate LVH, AV prosthesis with peak gradient 11, mean gradient 6, moderate mitral regurgitation, moderate to severe pulmonic insufficiency pressure half-time 104 MS, moderate pulmonic stenosis, RVSP 58. 10/17 Patient is seen today in follow-up on the observation unit. He is scheduled for surgery today. He denies having any chest pain or shortness of breath. He states his abdomen remains painful but controlled with current medications. Nausea is improved. INR is 1.4. Hemoglobin 12.5, BUN 8 and creatinine 0.89, potassium 4. 10/18 Yesterday, patient underwent left and sigmoid colon resection, takedown of splenic flexure and repair of incarcerated ventral hernia, partial omentectomy. Patient is complaining of abdominal pain and tenderness. He denies having any chest pain. He has burping but not having flatulence. He states he did not sleep well last night. Blood pressure 164/90, heart rate 85, pulse ox 95% on 1/2 L nasal cannula. General surgery has cleared the patient to resume heparin tomorrow. 10/19 Patient states that his abdominal pain is better controlled today. He does have a little bit of nausea no vomiting. He complains of hiccups he has not passed gas yet. He has been cleared to start anticoagulation with Coumadin and heparin today. Blood pressure 145/87, heart rate 92, pulse ox 94% on room air. INR yesterday was 1.4. No blood work report available at the time of this dictation. 10/22/2023 Blood pressure 154/95, heart rate 95 bpm, INR is 1.2., Coumadin is on hold for anticipated surgery. Continues to be on IV heparin drip. Hemoglobin yesterday was 12.7 which is stable. 10/23/2023 Patient examined this morning at the bedside. Patient currently denies chest pain or pressure. He denies shortness of breath. He is tolerating clear liquid diet. He remains on IV heparin. INR today is 1.6. PHYSICAL EXAM: VITAL SIGNS: Reviewed. GENERAL: Well-developed in no acute distress. NECK: Supple. No JVD or thyromegaly LUNGS: Respirations even and unlabored. Lungs essentially clear to auscultation bilaterally. HEART: Regular rate and rhythm. S1 and S2 heard. Mechanical click noted. EXTREMITIES: Normal range of motion. No clubbing or cyanosis. Peripheral pulses intact. No lower extremity edema ASSESSMENT: Acute diverticulitis with perforation and phlegmonous change of the descending colon, status post colon resection Congenital aortic stenosis, status post balloon valvuloplasty, initial Ross pro cedure, mechanical aortic valve placement in 2016 Ascending aortic aneurysm status post repair in 2016 Hypertension Hyperlipidemia History of stroke and TIA likely related to mechanical valve History of medical noncompliance PLAN: Continue postoperative management per general surgery Continue IV heparin until INR is therapeutic Coumadin has been resumed. Monitor INR daily. Goal INR 2.53.5. Further recommendations pending patient course Nurse practitioner note has been reviewed by physician. Signing provider agrees with the documented findings, assessment, and plan of care documented by TANK BUILDER [employer]OR as a scribe. Objective - Vital Signs Vital signs: Vital Signs Temp 98.4 F 10/23/23 07:31 Pulse 80 10/23/23 07:31 Resp 19 10/23/23 07:31 BP 154/88 10/23/23 07:31 Pulse Ox 97 10/23/23 07:31 FiO2 Intake & Output 10/22/23 10/23/23 10/23/23 18:59 06:59 18:59 Intake Total 227.692 181.642 Output Total 100 1100 Balance -100 -872.308 181.642 Intake: Intake, IV Titration 227.692 181.642 Amount Heparin Sod,Pork in 0.45% 227.692 181.642 NaCl 25,000 unit In 0.45 % NaCl 1 250ml.bag @ 9.1 UNITS/KG/HR 9.906 mls/hr IV .Q24H [facility] Rx#: [id number] Output: Urine 1100 Stool 100 Other: Voiding Method Toilet Urinal # Voids 4 200 - Labs CBC & Chem 7: 10/23/23 05:01 10/23/23 05:01 Labs: Abnormal Lab Results - Last 24 Hours (Table) 10/22/23 10/23/23 10/23/23 Range/Units 14:14 05:01 05:01 WBC (4.50-10.00) X 10*3/uL RBC (4.40-5.60) X 10*6/uL Hgb (13.0-17.0) g/dL Hct (39.6-50.0) % Plt Count (140-440) X 10*3/uL Immature Gran # (0.00-0.04) X 10*3/uL Neutrophils # (1.80-7.70) X 10*3/uL Monocytes # (0.20-1.00) X 10*3/uL Eosinophils # (0.04-0.35) X 10*3/uL Basophils # (0.00-0.10) X 10*3/uL PT 15.2 H 16.6 H (10.0-12.5) sec INR 1.5 H 1.6 H (<1.2) APTT 45.1 H 55.8 H (22.0-30.0) sec BUN (9.0-27.0) mg/dL BUN/Creatinine Ratio (12.00-20.00) Ratio Calcium (8.7-10.3) mg/dL 10/23/23 10/23/23 Range/Units 05:01 05:01 WBC 11.69 H (4.50-10.00) X 10*3/uL RBC 4.29 L (4.40-5.60) X 10*6/uL Hgb 12.7 L (13.0-17.0) g/dL Hct 37.7 L (39.6-50.0) % Plt Count 457 H (140-440) X 10*3/uL Immature Gran # 0.24 H (0.00-0.04) X 10*3/uL Neutrophils # 8.49 H (1.80-7.70) X 10*3/uL Monocytes # 1.13 H (0.20-1.00) X 10*3/uL Eosinophils # 0.49 H (0.04-0.35) X 10*3/uL Basophils # 0.11 H (0.00-0.10) X 10*3/uL PT (10.0-12.5) sec INR (<1.2) APTT (22.0-30.0) sec BUN 5.6 L (9.0-27.0) mg/dL BUN/Creatinine Ratio 8.00 L (12.00-20.00) Ratio Calcium 8.3 L (8.7-10.3) mg/dL Microbiology - Last 24 Hours (Table) 10/17/23 08:51 Blood Culture - Final Blood 10/17/23 09:01 Blood Culture - Final Blood
--- NOTE | 2023-10-23 14:45 | P.PN ---
Subjective Progress Note Date: 10/23/23 CHIEF COMPLAINT: Perforated diverticulitis HISTORY OF PRESENT ILLNESS: Patient is postop day #5 status post left colon and sigmoid colon resection, takedown of splenic flexure, repair of incarcerated ventral hernia and partial omentectomy. Patient complains of abdominal pain. He does report his pain is controlled. Denies any nausea or vomiting. His ostomy is functioning. Afebrile. WBC 11.69 Hgb stable at 12.7 platelets 457 INR 1.6. Patient receiving IV iron and Coumadin PHYSICAL EXAM: VITAL SIGNS: Reviewed. GENERAL: Well-developed in no acute distress. ABDOMEN: Soft. nondistended. Mild tenderness to palpation near incision site. Ostomy bag with stool present. Stoma beefy red. distal incision site with minimal oozing of blood NEUROLOGIC: Alert and oriented. Cranial nerves II through XII grossly intact. ASSESSMENT: 1. Diverticulitis with intramural abscess of the left and sigmoid colon 2. Congenital aortic valve stenosis with mechanical valve fluid PLAN: -Advance diet to full liquids -Add [place] for oral pain medication -Encourage patient to ambulate -Repeat CBC in a.m. -Anticoagulation per cardiology -Continue antibiotics -Discontinue IV fluids -GI prophylaxis Protonix Physician Tax Lawyer note has been reviewed by physician. Signing provider agrees with the documented findings, assessment, and plan of care. Objective - Vital Signs Vital signs: Vital Signs Temp 98.3 F 10/23/23 13:49 Pulse 77 10/23/23 13:49 Resp 20 10/23/23 13:49 BP 147/94 10/23/23 13:49 Pulse Ox 98 10/23/23 13:49 FiO2 Intake & Output 10/22/23 10/23/23 10/23/23 18:59 06:59 18:59 Intake Total 227.692 250.000 Output Total 100 1100 Balance -100 -872.308 250.000 Intake: Intake, IV Titration 227.692 250.000 Amount Heparin Sod,Pork in 0.45% 227.692 250.000 NaCl 25,000 unit In 0.45 % NaCl 1 250ml.bag @ 9.1 UNITS/KG/HR 9.906 mls/hr IV .Q24H [facility] Rx#: [id number] Output: Urine 1100 Stool 100 Other: Voiding Method Toilet Urinal # Voids 4 200 - Labs CBC & Chem 7: 10/23/23 05:01 10/23/23 05:01 Labs: Abnormal Lab Results - Last 24 Hours (Table) 10/22/23 10/23/23 10/23/23 Range/Units 14:14 05:01 05:01 WBC (4.50-10.00) X 10*3/uL RBC (4.40-5.60) X 10*6/uL Hgb (13.0-17.0) g/dL Hct (39.6-50.0) % Plt Count (140-440) X 10*3/uL Immature Gran # (0.00-0.04) X 10*3/uL Neutrophils # (1.80-7.70) X 10*3/uL Monocytes # (0.20-1.00) X 10*3/uL Eosinophils # (0.04-0.35) X 10*3/uL Basophils # (0.00-0.10) X 10*3/uL PT 15.2 H 16.6 H (10.0-12.5) sec INR 1.5 H 1.6 H (<1.2) APTT 45.1 H 55.8 H (22.0-30.0) sec BUN (9.0-27.0) mg/dL BUN/Creatinine Ratio (12.00-20.00) Ratio Calcium (8.7-10.3) mg/dL 10/23/23 10/23/23 Range/Units 05:01 05:01 WBC 11.69 H (4.50-10.00) X 10*3/uL RBC 4.29 L (4.40-5.60) X 10*6/uL Hgb 12.7 L (13.0-17.0) g/dL Hct 37.7 L (39.6-50.0) % Plt Count 457 H (140-440) X 10*3/uL Immature Gran # 0.24 H (0.00-0.04) X 10*3/uL Neutrophils # 8.49 H (1.80-7.70) X 10*3/uL Monocytes # 1.13 H (0.20-1.00) X 10*3/uL Eosinophils # 0.49 H (0.04-0.35) X 10*3/uL Basophils # 0.11 H (0.00-0.10) X 10*3/uL PT (10.0-12.5) sec INR (<1.2) APTT (22.0-30.0) sec BUN 5.6 L (9.0-27.0) mg/dL BUN/Creatinine Ratio 8.00 L (12.00-20.00) Ratio Calcium 8.3 L (8.7-10.3) mg/dL Microbiology - Last 24 Hours (Table) 10/17/23 08:51 Blood Culture - Final Blood 10/17/23 09:01 Blood Culture - Final Blood
[2023-10-23] MEDS: WARFARIN 3 MG TAB PO ONE (17:26)
[2023-10-24 06:09] LABS: INR 2.1 (<1.2); Prothrombin Time 20.8 sec (10.0-12.5)
[2023-10-24 08:39] LABS: Basophils # (A) 0.11 X 10*3/uL (0.00-0.10); Basophils % (A) 1.1 %; Eosinophils # (A) 0.46 X 10*3/uL (0.04-0.35); Eosinophils % (A) 4.6 %; HCT 34.2 % (39.6-50.0); HGB 11.8 g/dL (13.0-17.0); Lymphocytes # (A) 1.11 X 10*3/uL (0.90-5.00); Lymphocytes % (A) 11.1 %; MCH 29.6 pg (27.0-32.0); MCHC 34.5 g/dL (32.0-37.0); MCV 85.9 FL (80.0-97.0); Mean Platelet Volume 9.5 FL (9.5-12.2); Monocytes # (A) 1.01 X 10*3/uL (0.20-1.00); Monocytes % (A) 10.1 %; NRBC Per 100 WBC 0 X 10*3/uL (0.00-0.01); Neutrophils # (A) 6.98 X 10*3/uL (1.80-7.70); Neutrophils % (A) 69.5 %; Platelet Count 393 X 10*3/uL (140-440); RBC 3.98 X 10*6/uL (4.40-5.60); RDW 13.2 % (11.5-14.5); WBC 10.03 X 10*3/uL (4.50-10.00)
--- NOTE | 2023-10-24 11:32 | P.PN ---
Subjective HISTORY OF PRESENT ILLNESS: This is a 43-year-old male patient of Dr. Lenz with past medical history of congenital aortic stenosis status post balloon valvuloplasty, Ross procedure and then mechanical aortic valve replacement, history of ascending aortic aneurysm status post ascending aortic repair, stroke, as well as TIA, hypertension, some concern for medical noncompliance. We have been asked to evaluate the patient for preop clearance. Patient states that around 3 in the morning he started having abdominal pain which she apparently has had on and off for the past 2 months. He had 2 bloody stools with clots and came into the hospital for evaluation. Patient has been seen by general surgery with plan for sigmoid colectomy and possible colostomy which is scheduled for tomorrow with Dr. France. Coumadin has been placed on hold. Patient denies having any difficulty in breathing no chest pain or chest pressure, no palpitations, no lightheadedness or dizziness and no syncopal episodes. He states he does have a little bit of nausea. Patient is seen today in the emergency center waiting for a bed on the [facility]. EKG sinus rhythm with right bundle branch block CTA of the abdomen pelvis revealed complicated diverticulitis perforation with phlegmonous change just outside the lumen of the descending colon. No org anizing fluid collection at this time however felt to represent early abscess formation. No evidence of GI hemorrhage. WBC 9.8, hemoglobin 15. INR 2.2. Electrolytes and renal function normal. Trop onin negative x 1. Home cardiac medications: Metoprolol tartrate 100 mg twice daily, Coumadin alternating 6 mg and 4 mg Cardiac catheterization in 2016 revealed normal coronary arteries Stress echocardiogram performed in the office on 07/20/2023 revealed nonspecific stress EKG portion secondary to baseline EKG abnormalities with accentuation of baseline EKG abnormalities. Normal stress echo portion. Normal LV function 55%. Good exercise tolerance. Echocardiogram performed 07/13/2023 revealed EF of 50% grade 2 diastolic dysfunction, moderate LVH, AV prosthesis with peak gradient 11, mean gradient 6, moderate mitral regurgitation, moderate to severe pulmonic insufficiency pressure half-time 104 MS, moderate pulmonic stenosis, RVSP 58. 10/17 Patient is seen today in follow-up on the observation unit. He is scheduled for surgery today. He denies having any chest pain or shortness of breath. He states his abdomen remains painful but controlled with current medications. Nausea is improved. INR is 1.4. Hemoglobin 12.5, BUN 8 and creatinine 0.89, potassium 4. 10/18 Yesterday, patient underwent left and sigmoid colon resection, takedown of splenic flexure and repair of incarcerated ventral hernia, partial omentectomy. Patient is complaining of abdominal pain and tenderness. He denies having any chest pain. He has burping but not having flatulence. He states he did not sleep well last night. Blood pressure 164/90, heart rate 85, pulse ox 95% on 1/2 L nasal cannula. General surgery has cleared the patient to resume heparin tomorrow. 10/19 Patient states that his abdominal pain is better controlled today. He does have a little bit of nausea no vomiting. He complains of hiccups he has not passed gas yet. He has been cleared to start anticoagulation with Coumadin and heparin today. Blood pressure 145/87, heart rate 92, pulse ox 94% on room air. INR yesterday was 1.4. No blood work report available at the time of this dictation. 10/22/2023 Blood pressure 154/95, heart rate 95 bpm, INR is 1.2., Coumadin is on hold for anticipated surgery. Continues to be on IV heparin drip. Hemoglobin yesterday was 12.7 which is stable. 10/23/2023 Patient examined this morning at the bedside. Patient currently denies chest pain or pressure. He denies shortness of breath. He is tolerating clear liquid diet. He remains on IV heparin. INR today is 1.6. 10/24/2023 Patient examined this morning at the bedside. Patient currently denies chest pain or pressure. He denies shortness of breath. He is tolerating full liquid diet. He remains on IV heparin. INR today is 2.1 PHYSICAL EXAM: VITAL SIGNS: Reviewed. GENERAL: Well-developed in no acute distress. NECK: Supple. No JVD or thyromegaly LUNGS: Respirations even and unlabored. Lungs essentially clear to auscultation bilaterally. HEART: Regular rate and rhythm. S1 and S2 heard. Mechanical click noted. EXTREMITIES: Normal range of motion. No clubbing or cyanosis. Peripheral pulses intact. No lower extremity edema ASSESSMENT: Acute diverticulitis with perforation and phlegmonous change of the descending colon, status post colon resection Congenital aortic stenosis, status post balloon valvuloplasty, initial Ross procedure, mechanical aortic valve placement in 2016 Ascending aortic aneurysm status post repair in 2016 Hypertension Hyperlipidemia History of stroke and TIA likely related to mechanical valve History of medical noncompliance PLAN: Continue postoperative management per general surgery Continue IV heparin until INR is therapeutic Continue Coumadin. Monitor INR daily. Goal INR 2.53.5. Further recommendations pending patient course Nurse practitioner note has been reviewed by physician. Signing provider agrees with the documented findings, assessment, and plan of care documented by LICENSED CHEMICAL SPRAY TECHNICIAN as a scribe. Objective - Vital Signs Vital signs: Vital Signs Temp 98.1 F 10/24/23 07:34 Pulse 74 10/24/23 07:34 Resp 16 10/24/23 07:34 BP 150/96 10/24/23 07:34 Pulse Ox 98 10/24/23 07:34 FiO2 Intake & Output 10/23/23 10/24/23 10/24/23 18:59 06:59 18:59 Intake Total 250.000 450 Output Total 400 800 Balance -150.000 -350 Weight 108.862 kg Intake: Intake, IV Titration 250.000 450 Amount Heparin Sod,Pork in 0.45% 250.000 250 NaCl 25,000 unit In 0.45 % NaCl 1 250ml.bag @ 9.1 UNITS/KG/HR 9.906 mls/hr IV .Q24H [facility] Rx#: [id number] Piperacillin-Tazobactam 3 200 .375 gm In Sodium Chloride 0.9% 100 ml @ 25 mls/hr IVPB Q8H [facility] Rx#: [id number] Output: Urine 400 800 Other: Voiding Method Urinal - Labs CBC & Chem 7: 10/24/23 04:45 10/23/23 05:01 Labs: Abnormal Lab Results - Last 24 Hours (Table) 10/24/23 10/24/23 Range/Units 04:45 04:45 WBC 10.03 H (4.50-10.00) X 10*3/uL RBC 3.98 L (4.40-5.60) X 10*6/uL Hgb 11.8 L (13.0-17.0) g/dL Hct 34.2 L (39.6-50.0) % Immature Gran # 0.36 H (0.00-0.04) X 10*3/uL Monocytes # 1.01 H (0.20-1.00) X 10*3/uL Eosinophils # 0.46 H (0.04-0.35) X 10*3/uL Basophils # 0.11 H (0.00-0.10) X 10*3/uL PT 20.8 H (10.0-12.5) sec INR 2.1 H (<1.2)
--- NOTE | 2023-10-24 11:58 | PN ---
PROGRESS NOTE DATE OF SERVICE: 10/22/2023 CHIEF COMPLAINT: Diverticulitis with perforation. HISTORY OF PRESENT ILLNESS: This gentleman is having quite a bit of discomfort in his colostomy. He is not functioning yet. PHYSICAL EXAMINATION: CHEST: Clear. CARDIAC: Unchanged with his murmur. ABDOMEN: Slightly distended. There is some blood in the colostomy bag, but no feces. IMPRESSION: Status post laparotomy and colostomy for diverticulitis with perforation. PLAN: No change in program at this time. MMODL / IJN: [id number] /
--- NOTE | 2023-10-24 12:10 | PN ---
PROGRESS NOTE DATE OF SERVICE: 10/23/2023 CHIEF COMPLAINT: Status post perforated diverticulitis. HISTORY OF PRESENT ILLNESS: This gentleman continues to have significant amount of pain and the colostomy is not putting out stool at this point. PHYSICAL EXAMINATION: CHEST: Clear. CARDIAC: Unchanged. ABDOMEN: Soft and bowel sounds are not heard. IMPRESSION: 1. Status post subtotal colectomy for perforated diverticulitis. 2. Aortic valve disease. PLAN: Continue to follow with General Surgery as well as Cardiology who is following him for his aortic disease. MMODL / IJN: [id number] /
[2023-10-24 13:23] LABS: INR 2.2 (<1.2); Prothrombin Time 21.8 sec (10.0-12.5)
--- NOTE | 2023-10-24 15:53 | P.PN ---
Subjective Progress Note Date: 10/24/23 CHIEF COMPLAINT: Perforated diverticulitis HISTORY OF PRESENT ILLNESS: Patient is postop day #6 status post left colon and sigmoid colon resection, takedown of splenic flexure, repair of incarcerated ventral hernia and partial omentectomy. Patient reports that he is feeling better each day. Abdominal pain improving. Ostomy is functioning. Denies any nausea or vomiting. Remains on IV heparin for an INR of 2.1. Repeat INR today is 2.2. WBC 10.03 Hgb 11.8 PHYSICAL EXAM: VITAL SIGNS: Reviewed. GENERAL: Well-developed in no acute distress. ABDOMEN: Soft. nondistended. Mild tenderness to palpation near incision site. Ostomy bag with stool present. Stoma beefy red. Incisional site with minimal blood oozing at the distal aspect NEUROLOGIC: Alert and oriented. Cranial nerves II through XII grossly intact. ASSESSMENT: 1. Diverticulitis with intramural abscess of the left and sigmoid colon 2. Congenital aortic valve stenosis with mechanical valve fluid PLAN: -Advance diet to regular -Anticoagulation management per cardiology -Continue pain management -Anticipate discharge possibly tomorrow -Continue antibiotics -GI prophylaxis Protonix Physician Sheet Metal Operator note has been reviewed by physician. Signing provider agrees with the documented findings, assessment, and plan of care. Objective - Vital Signs Vital signs: Vital Signs Temp 98 F 10/24/23 13:15 Pulse 79 10/24/23 13:15 Resp 18 10/24/23 13:15 BP 148/91 10/24/23 13:15 Pulse Ox 97 10/24/23 13:15 FiO2 Intake & Output 10/23/23 10/24/23 10/24/23 18:59 06:59 18:59 Intake Total 250.000 450 Output Total 400 800 Balance -150.000 -350 Weight 108.862 kg Intake: Intake, IV Titration 250.000 450 Amount Heparin Sod,Pork in 0.45% 250.000 250 NaCl 25,000 unit In 0.45 % NaCl 1 250ml.bag @ 9.1 UNITS/KG/HR 9.906 mls/hr IV .Q24H [facility] Rx#: [id number] Piperacillin-Tazobactam 3 200 .375 gm In Sodium Chloride 0.9% 100 ml @ 25 mls/hr IVPB Q8H [facility] Rx#: [id number] Output: Urine 400 800 Other: Voiding Method Urinal - Labs CBC & Chem 7: 10/24/23 04:45 10/23/23 05:01 Labs: Abnormal Lab Results - Last 24 Hours (Table) 10/24/23 10/24/23 10/24/23 Range/Units 04:45 04:45 13:06 WBC 10.03 H (4.50-10.00) X 10*3/uL RBC 3.98 L (4.40-5.60) X 10*6/uL Hgb 11.8 L (13.0-17.0) g/dL Hct 34.2 L (39.6-50.0) % Immature Gran # 0.36 H (0.00-0.04) X 10*3/uL Monocytes # 1.01 H (0.20-1.00) X 10*3/uL Eosinophils # 0.46 H (0.04-0.35) X 10*3/uL Basophils # 0.11 H (0.00-0.10) X 10*3/uL PT 20.8 H 21.8 H (10.0-12.5) sec INR 2.1 H 2.2 H (<1.2)
[2023-10-24] MEDS: WARFARIN 2 MG TAB PO ONE (17:41)
--- NOTE | 2023-10-25 00:55 | PN ---
PROGRESS NOTE DATE OF SERVICE: 10/24/2023 CHIEF COMPLAINT: Status post subtotal colectomy for perforated diverticulitis. HISTORY OF PRESENT ILLNESS: This gentleman seems to be doing well, but he is still having quite a bit of pain. Colostomy is not fully functional. PHYSICAL EXAMINATION: CHEST: Clear. CARDIAC: Same with the same murmur. ABDOMEN: Slightly distended. There is blood in the colostomy bag, but nothing else. VITAL SIGNS: His blood pressure is slightly elevated. IMPRESSION: 1. Status post subtotal colectomy for diverticulitis with perforation. 2. History of aortic valve disease. 3. Intractable pain. 4. Elevated blood pressure. PLAN: No change in program and continue to wait for his ileus to resolve. MMODL / IJN: [id number] /
[2023-10-25 05:39] LABS: INR 1.8 (<1.2); Partial Thromboplastin Time 84.3 sec (22.0-30.0); Prothrombin Time 18.4 sec (10.0-12.5)
[2023-10-25 07:53] VITALS: RESP 18
[2023-10-25 08:39] LABS: HCT 35.3 % (39.6-50.0); HGB 12.1 g/dL (13.0-17.0); MCH 29.6 pg (27.0-32.0); MCHC 34.3 g/dL (32.0-37.0); MCV 86.3 FL (80.0-97.0); Mean Platelet Volume 9.6 FL (9.5-12.2); NRBC Per 100 WBC 0 X 10*3/uL (0.00-0.01); Platelet Count 405 X 10*3/uL (140-440); RBC 4.09 X 10*6/uL (4.40-5.60); RDW 13.3 % (11.5-14.5); WBC 9.56 X 10*3/uL (4.50-10.00)
[2023-10-25 09:29] LABS: Eosinophils # (M) 0.19 X 10*3/uL (0.04-0.35); Lymphocytes # (M) 1.15 X 10*3/uL (0.90-5.00); Metamyelocytes % 2 % (0-0); Monocytes # (M) 0.38 X 10*3/uL (0.20-1.00); Myelocytes % 2 % (0-0); Neutrophils # (M) 7.36 X 10*3/uL (1.80-7.70); Neutrophils % (M) 77 %; RBC Morphology Normal (Normal)
[2023-10-25 09:51] LABS: INR 1.7 (<1.2); Prothrombin Time 17.6 sec (10.0-12.5)
--- NOTE | 2023-10-25 11:11 | P.PN ---
Subjective HISTORY OF PRESENT ILLNESS: This is a 43-year-old male patient of Dr. Lenz with past medical history of congenital aortic stenosis status post balloon valvuloplasty, Ross procedure and then mechanical aortic valve replacement, history of ascending aortic aneurysm status post ascending aortic repair, stroke, as well as TIA, hypertension, some concern for medical noncompliance. We have been asked to evaluate the patient for preop clearance. Patient states that around 3 in the morning he started having abdominal pain which she apparently has had on and off for the past 2 months. He had 2 bloody stools with clots and came into the hospital for evaluation. Patient has been seen by general surgery with plan for sigmoid colectomy and possible colostomy which is scheduled for tomorrow with Dr. France. Coumadin has been placed on hold. Patient denies having any difficulty in breathing no chest pain or chest pressure, no palpitations, no lightheadedness or dizziness and no syncopal episodes. He states he does have a little bit of nausea. Patient is seen today in the emergency center waiting for a bed on the [facility]. EKG sinus rhythm with right bundle branch block CTA of the abdomen pelvis revealed complicated diverticulitis perforation with phlegmonous change just outside the lumen of the descending colon. No org anizing fluid collection at this time however felt to represent early abscess formation. No evidence of GI hemorrhage. WBC 9.8, hemoglobin 15. INR 2.2. Electrolytes and renal function normal. Trop onin negative x 1. Home cardiac medications: Metoprolol tartrate 100 mg twice daily, Coumadin alternating 6 mg and 4 mg Cardiac catheterization in 2016 revealed normal coronary arteries Stress echocardiogram performed in the office on 07/20/2023 revealed nonspecific stress EKG portion secondary to baseline EKG abnormalities with accentuation of baseline EKG abnormalities. Normal stress echo portion. Normal LV function 55%. Good exercise tolerance. Echocardiogram performed 07/13/2023 revealed EF of 50% grade 2 diastolic dysfunction, moderate LVH, AV prosthesis with peak gradient 11, mean gradient 6, moderate mitral regurgitation, moderate to severe pulmonic insufficiency pressure half-time 104 MS, moderate pulmonic stenosis, RVSP 58. 10/17 Patient is seen today in follow-up on the observation unit. He is scheduled for surgery today. He denies having any chest pain or shortness of breath. He states his abdomen remains painful but controlled with current medications. Nausea is improved. INR is 1.4. Hemoglobin 12.5, BUN 8 and creatinine 0.89, potassium 4. 10/18 Yesterday, patient underwent left and sigmoid colon resection, takedown of splenic flexure and repair of incarcerated ventral hernia, partial omentectomy. Patient is complaining of abdominal pain and tenderness. He denies having any chest pain. He has burping but not having flatulence. He states he did not sleep well last night. Blood pressure 164/90, heart rate 85, pulse ox 95% on 1/2 L nasal cannula. General surgery has cleared the patient to resume heparin tomorrow. 10/19 Patient states that his abdominal pain is better controlled today. He does have a little bit of nausea no vomiting. He complains of hiccups he has not passed gas yet. He has been cleared to start anticoagulation with Coumadin and heparin today. Blood pressure 145/87, heart rate 92, pulse ox 94% on room air. INR yesterday was 1.4. No blood work report available at the time of this dictation. 10/22/2023 Blood pressure 154/95, heart rate 95 bpm, INR is 1.2., Coumadin is on hold for anticipated surgery. Continues to be on IV heparin drip. Hemoglobin yesterday was 12.7 which is stable. 10/23/2023 Patient examined this morning at the bedside. Patient currently denies chest pain or pressure. He denies shortness of breath. He is tolerating clear liquid diet. He remains on IV heparin. INR today is 1.6. 10/24/2023 Patient examined this morning at the bedside. Patient currently denies chest pain or pressure. He denies shortness of breath. He is tolerating full liquid diet. He remains on IV heparin. INR today is 2.1 10/25/2023 Patient examined this morning at the bedside. Patient denies chest pain or pressure. He denies shortness of breath. Vital signs are stable. He remains on IV heparin. INR today 1.8. Repeat INR 1.7. PHYSICAL EXAM: VITAL SIGNS: Reviewed. GENERAL: Well-developed in no acute distress. NECK: Supple. No JVD or thyromegaly LUNGS: Respirations even and unlabored. Lungs essentially clear to auscultation bilaterally. HEART: Regular rate and rhythm. S1 and S2 heard. Mechanical click noted. EXTREMITIES: Normal range of motion. No clubbing or cyanosis. Peripheral pulses intact. No lower extremity edema ASSESSMENT: Acute diverticulitis with perforation and phlegmonous change of the descending colon, status post colon resection Congenital aortic stenosis, status post balloon valvuloplasty, initial Ross procedure, mechanical aortic valve placement in 2016 Ascending aortic aneurysm status post repair in 2016 Hypertension Hyperlipidemia History of stroke and TIA likely related to mechanical valve History of medical noncompliance PLAN: Plan for discharge home today per general surgery Patient to resume his normal dose of Coumadin Prescription for Lovenox x 5 days sent to patient's preferred pharmacy Patient to have INR checked at the cardiology office on Monday He may be discharged home today from a cardiac standpoint Nurse practitioner note has been reviewed by physician. Signing provider agrees with the documented findings, assessment, and plan of care documented by HIGH SCHOOL COORDINATOR as a scribe. Objective - Vital Signs Vital signs: Vital Signs Temp 97.7 F 10/25/23 07:33 Pulse 67 10/25/23 07:33 Resp 18 10/25/23 07:33 BP 145/91 10/25/23 07:33 Pulse Ox 96 10/25/23 07:33 FiO2 Intake & Output 10/24/23 10/25/23 10/25/23 18:59 06:59 18:59 Intake Total 561.492 Output Total 1425 Balance -863.508 Intake: Intake, IV Titration 561.492 Amount Heparin Sod,Pork in 0.45% 361.492 NaCl 25,000 unit In 0.45 % NaCl 1 250ml.bag @ 9.1 UNITS/KG/HR 9.906 mls/hr IV .Q24H [facility] Rx#: [id number] Piperacillin-Tazobactam 3 200 .375 gm In Sodium Chloride 0.9% 100 ml @ 25 mls/hr IVPB Q8H [facility] Rx#: [id number] Output: Urine 1425 Other: Voiding Method Urinal - Labs CBC & Chem 7: 10/25/23 04:52 10/23/23 05:01 Labs: Abnormal Lab Results - Last 24 Hours (Table) 10/24/23 10/25/23 10/25/23 Range/Units 13:06 04:52 04:52 RBC 4.09 L (4.40-5.60) X 10*6/uL Hgb 12.1 L (13.0-17.0) g/dL Hct 35.3 L (39.6-50.0) % PT 21.8 H 18.4 H (10.0-12.5) sec INR 2.2 H 1.8 H (<1.2) APTT 84.3 H (22.0-30.0) sec
--- NOTE | 2023-10-25 12:02 | P.PN ---
Subjective Progress Note Date: 10/25/23 CHIEF COMPLAINT: Perforated diverticulitis HISTORY OF PRESENT ILLNESS: Patient is postop day #7 status post left colon and sigmoid colon resection, takedown of splenic flexure, repair of incarcerated ventral hernia and partial omentectomy. Patient's pain is controlled. He is having stool through his ostomy. He does have some blood noted in the ostomy bag. He is tolerating diet. Unfortunately INR is 1.7. Discussed with cardiology service. They will be placing patient on Lovenox injections until INR therapeutic so he can be discharged today. Hemoglobin stable at 12.1 afebrile. WBC 9.56 PHYSICAL EXAM: VITAL SIGNS: Reviewed. GENERAL: Well-developed in no acute distress. ABDOMEN: Soft. nondistended. Mild tenderness to palpation near incision site. Ostomy no stool. There is some blood oozing around the ostomy. Incision site is clean no erythema. There is small amount of blood oozing at the distal aspect NEUROLOGIC: Alert and oriented. Cranial nerves II through XII grossly intact. ASSESSMENT: 1. Diverticulitis with intramural abscess of the left and sigmoid colon 2. Congenital aortic valve stenosis with mechanical valve fluid PLAN: -Patient can be discharged from surgical standpoint -Anticoagulation management per cardiology -Continue antibiotics -GI prophylaxis Protonix Physician Lumpia Wrapper Maker note has been reviewed by physician. Signing provider agrees with the documented findings, assessment, and plan of care. Objective - Vital Signs Vital signs: Vital Signs Temp 97.7 F 10/25/23 07:33 Pulse 67 10/25/23 07:33 Resp 18 10/25/23 07:33 BP 145/91 10/25/23 07:33 Pulse Ox 96 10/25/23 08:49 FiO2 Intake & Output 10/24/23 10/25/23 10/25/23 18:59 06:59 18:59 Intake Total 561.492 Output Total 1425 Balance -863.508 Intake: Intake, IV Titration 561.492 Amount Heparin Sod,Pork in 0.45% 361.492 NaCl 25,000 unit In 0.45 % NaCl 1 250ml.bag @ 9.1 UNITS/KG/HR 9.906 mls/hr IV .Q24H [facility] Rx#: [id number] Piperacillin-Tazobactam 3 200 .375 gm In Sodium Chloride 0.9% 100 ml @ 25 mls/hr IVPB Q8H [facility] Rx#: [id number] Output: Urine 1425 Other: Voiding Method Urinal - Labs CBC & Chem 7: 10/25/23 04:52 10/23/23 05:01 Labs: Abnormal Lab Results - Last 24 Hours (Table) 10/24/23 10/25/23 10/25/23 Range/Units 13:06 04:52 04:52 RBC 4.09 L (4.40-5.60) X 10*6/uL Hgb 12.1 L (13.0-17.0) g/dL Hct 35.3 L (39.6-50.0) % PT 21.8 H 18.4 H (10.0-12.5) sec INR 2.2 H 1.8 H (<1.2) APTT 84.3 H (22.0-30.0) sec 10/25/23 Range/Units 09:02 RBC (4.40-5.60) X 10*6/uL Hgb (13.0-17.0) g/dL Hct (39.6-50.0) % PT 17.6 H (10.0-12.5) sec INR 1.7 H (<1.2) APTT (22.0-30.0) sec
[2023-10-25] MEDS: chlorproMAZINE 25 MG TAB PO ONE (12:45)
[2023-10-25 13:42] VITALS: BP 147/87; PULSE 75; TEMP 97.9
[2023-10-25] MEDS ORDERED: WARFARIN 7.5 MG TAB PO ONE (18:00)
== END 2023-10-25 15:18 | disposition home health service (06) | DRG 231 ==
LOC: EC 04:00 → 4SSUR 08:28 → 1SOBS 21:21 → 4SSUR 10-18 14:04
PROVIDERS: ADMIT Family Medicine; ATTEND Family Medicine
PROC: 0DBU0ZZ Excision of Omentum, Open Approach (ICD-10-PCS; 2023-10-18)
PROC: 0DTN0ZZ Resection of Sigmoid Colon, Open Approach (ICD-10-PCS; 2023-10-18)
PROC: 0DBG0ZZ Excision of Left Large Intestine, Open Approach (ICD-10-PCS; 2023-10-18)
PROC: 0WQF0ZZ Repair Abdominal Wall, Open Approach (ICD-10-PCS; 2023-10-18)
PROC: 0D1E0Z4 Bypass Large Intestine to Cutaneous, Open Approach (ICD-10-PCS; principal; 2023-10-18 12:25)
DX: K57.20 Diverticulitis of large intestine with perforation and abscess without bleeding (principal); E78.5 Hyperlipidemia, unspecified; I10 Essential (primary) hypertension; I34.0 Nonrheumatic mitral (valve) insufficiency; I45.10 Unspecified right bundle-branch block; K43.6 Other and unspecified ventral hernia with obstruction, without gangrene; Z79.01 Long term (current) use of anticoagulants; Z79.899 Other long term (current) drug therapy; Z86.73 Personal history of transient ischemic attack (TIA), and cerebral infarction without residual deficits; Z91.199 Patient's noncompliance with other medical treatment and regimen due to unspecified reason; Z95.1 Presence of aortocoronary bypass graft; Z95.2 Presence of prosthetic heart valve; Z87.891 Personal history of nicotine dependence
CPT/HCPCS: 36415; 64488; 74174; 80048; 80053; 84484; 85025; 85610; 85730; 86850; 86900; 86901; 87040; 88305; 88307; 93005; 94760; 96361; 96365; 96366; 96368; 96375; 96376; 99285

== ENCOUNTER → 2023-10-31 | Outpatient (CLI) | payer OTHER ==
[2023-11-01 02:45] LABS: Basophils # (A) 0.07 X 10*3/uL (0.00-0.10); Basophils % (A) 0.6 %; Eosinophils # (A) 0.19 X 10*3/uL (0.04-0.35); Eosinophils % (A) 1.6 %; HCT 38.4 % (39.6-50.0); HGB 12.3 g/dL (13.0-17.0); Lymphocytes # (A) 1.31 X 10*3/uL (0.90-5.00); Lymphocytes % (A) 11.1 %; MCH 28.9 pg (27.0-32.0); MCV 90.1 FL (80.0-97.0); Mean Platelet Volume 9.9 FL (9.5-12.2); Monocytes # (A) 1.63 X 10*3/uL (0.20-1.00); Monocytes % (A) 13.8 %; NRBC Per 100 WBC 0 X 10*3/uL (0.00-0.01); Neutrophils % (A) 71.3 %; Platelet Count 632 X 10*3/uL (140-440); RBC 4.26 X 10*6/uL (4.40-5.60); RDW 13.6 % (11.5-14.5); WBC 11.79 X 10*3/uL (4.50-10.00)
[2023-11-01 04:24] LABS: Blood Urea Nitrogen 14.4 mg/dL (9.0-27.0); Calcium 10.3 mg/dL (8.7-10.3); Carbon Dioxide 23.9 mmol/L (21.6-31.8); Chloride 99 mmol/L (96-109); Glucose 98 mg/dL (70-110); Potassium 5.1 mmol/L (3.5-5.5); Sodium 138 mmol/L (135-145)
== END | disposition home or self-care (01) ==
LOC: LABWHC1 16:01
PROVIDERS: ATTEND Nurse Practitioner Family
DX: Z93.3 Colostomy status (principal)
CPT/HCPCS: 36415; 80048; 85025

== ENCOUNTER 2023-11-08 10:27 | Emergency (ER) | payer OTHER ==
--- NOTE | 2023-11-08 10:32 | ED ---
Recheck HPI - General Source: patient, RN notes reviewed Mode of arrival: ambulatory Limitations: no limitations <Kimberly Curry - Last Filed: 11/08/23 10:32> - General Source: RN notes reviewed <Hui Cline - Last Filed: 11/08/23 19:27> - General Chief Complaint: Recheck/Abnormal Lab/Rx Stated Complaint: Post op complications Time Seen by Provider: 11/08/23 10:32 - History of Present Illness Initial Comments: Quick Note: This is a 43-year-old male who presents to the emergency department for postop complications. Patient was recently admitted to the hospital for perforated diverticulitis and has a temporary colostomy bag in place. States t hat he just had ronnie removed and a portion of the incision opened up and appears to be leaking fluid. (Kimberly Curry) 43-year-old female presenting to the ER for postop complications. Patient was recently admitted for perforated diverticulitis and has temporary colostomy bag. Reports he just had his ronnie removed yesterday by Dr. France. He reports he woke up this morning portion of the incision is opened and leaking fluid. He otherwise denies any fevers, chills, abdominal pain. (Hui Cline) - Related Data Home Medications Medication Instructions Recorded Confirmed Warfarin Sodium 4 mg PO MOWEFR 09/15/23 10/17/23 Warfarin Sodium 6 mg PO SUTUTHSA 09/15/23 10/17/23 Bifidobacterium Infantis [Align] 4 mg PO DAILY 10/17/23 10/17/23 Metoprolol Tartrate [Lopressor] 100 mg PO BID-W/MEALS 10/17/23 10/17/23 Previous Rx's Medication Instructions Recorded Amoxic-Pot Clav 875-125Mg 1 tab PO Q12HR 10 Days #20 tab 10/25/23 [Augmentin 875-125] Enoxaparin [Lovenox] 100 mg SQ Q12H #10 each 10/25/23 HYDROcodone/APAP 5-325MG [[place] 1 tab PO Q6HR PRN 3 Days #12 tab 10/25/23 5-325] Allergies Allergy/AdvReac Type Severity Reaction Status Date / Time No Known Allergies Allergy Verified 11/08/23 10:55 Review of Systems ROS Other: All systems not noted in ROS Statement are negative. <Kimberly Curry - Last Filed: 11/08/23 10:32> ROS Other: All systems not noted in ROS Statement are negative. <Hui Cline - Last Filed: 11/08/23 19:27> ROS Statement: Those systems with pertinent positive or pertinent negative responses have been documented in the HPI. Past Medical History Past Medical History: CVA/TIA, Hypertension Additional Past Medical History / Comment(s): CONGENITAL AORTIC VALVE STENOSIS, congenital heart disease History of Any Multi-Drug Resistant Organisms: None Reported Past Surgical History: Cardiac Valve Replacement, Cholecystectomy, Coronary Bypass/CABG, Heart Catheterization With Stent Additional Past Surgical History / Comment(s): 1991 & 1996 AORTIC VALVE REPLACED and again in 2014,CYST REMOVED FROM THROAT Past Anesthesia/Blood Transfusion Reactions: No Reported Reaction Date of Last Stent Placement:: n/a Past Psychological History: No Psychological Hx Reported Smoking Status: Former smoker Past Alcohol Use History: None Reported Past Drug Use History: Marijuana - Past Family History Mother Family Medical History: Diabetes Mellitus Father History Unknown: Yes <JohnsindyjeroKimberly - Last Filed: 11/08/23 10:32> General Exam <PatricioKimberly - Last Filed: 11/08/23 10:32> General appearance: alert, in no apparent distress Head exam: Present: atraumatic, normocephalic, normal inspection Eye exam: Present: normal appearance, PERRL, EOMI. Absent: scleral icterus, conjunctival injection, periorbital swelling ENT exam: Present: normal exam, mucous membranes moist Neck exam: Present: normal inspection. Absent: tenderness, meningismus, lymphadenopathy Respiratory exam: Present: normal lung sounds bilaterally. Absent: respiratory distress, wheezes, rales, rhonchi, stridor Cardiovascular Exam: Present: regular rate, normal rhythm, normal heart sounds. Absent: systolic murmur, diastolic murmur, rubs, gallop, clicks GI/Abdominal exam: Present: soft, normal bowel sounds, other (Vertical incision present on center of lower abdomen with dehiscence. No purulent drainage on incision. no surrounding erythema). Absent: distended, tenderness, guarding, rebound, rigid Extremities exam: Present: normal inspection, full ROM, normal capillary refill. Absent: tenderness, pedal edema, joint swelling, calf tenderness Neurological exam: Present: alert, oriented X3, CN II-XII intact Psychiatric exam: Present: normal affect, normal mood Skin exam: Present: warm, dry, intact, normal color. Absent: rash <Hui Cline - Last Filed: 11/08/23 19:27> - General Exam Comments Initial Comments: Visual Physical Exam Vital signs reviewed General: Well-appearing, nontoxic, no acute distress. Head: Normocephalic, atraumatic Eyes: PERRLA, EOMI ENT: Airway patent Chest: Nonlabored breathing Skin: No visual rash, normal skin tone Neuro: Alert and oriented 3 Musculoskeletal: No gross abnormalities (Kimberly Curry) Course Vital Signs 11/08/23 11/08/23 10:53 14:45 Temperature 98 F 98.1 F Pulse Rate 66 61 Respiratory 18 18 Rate Blood Pressure 122/83 116/76 O2 Sat by Pulse 98 99 Oximetry Medical Decision Making <Kimberly Curry - Last Filed: 11/08/23 10:32> <Hui Cline - Last Filed: 11/08/23 19:27> - Medical Decision Making I performed the QuickNote portion of this chart. Signed Kimberly Curry PA-C. (Kimberly Curry) Was pt. sent in by a medical professional or institution (GLADIS Garcia, [employer], urgent care, hospital, or custodial...) When possible be specific @ -No Did you speak to anyone other than the patient for history (EMS, parent, family, police, friend...)? What history was obtained from this source @ -No Did you review nursing and triage notes (agree or disagree)? Why? @ -I reviewed and agree with nursing and triage notes Were old charts reviewed (outside hosp., previous admission, EMS record, old EKG, old radiological studies, urgent care reports/EKG's, custodial records)? Report findings @ -No old charts were reviewed Differential Diagnosis (chest pain, altered mental status, abdominal pain women, abdominal pain men, vaginal bleeding, weakness, fever, dyspnea, syncope, headache, dizziness, GI bleed, back pain, seizure, CVA, palpatations, mental health, musculoskeletal)? @ -Cellulitis, abscess, incsional dehiscence hernia, EKG interpreted by me (3pts min.). @ -None X-rays interpreted by me (1pt min.). @ -None done CT interpreted by me (1pt min.). @ -None done U/S interpreted by me (1pt. min.). @ -None done What testing was considered but not performed or refused? (CT, X-rays, U/S, labs)? Why? @ -Lab work not performed due to no sign of bacterial infection What meds were considered but not given or refused? Why? @ -None Did you discuss the management of the patient with other professionals (professionals i.e. , PA, [employer], lab, RT, psych nurse, rn social services, stonemason helper, teacher, account officer, caseworker protective services)? Give summary @ -Discussed case with Dr. France who recommends follow-up tomorrow in his office. Was smoking cessation discussed for >3mins.? @ -No Was critical care preformed (if so, how long)? @ -No Were there social determinants of health that impacted care today? How? (Homelessness, low income, unemployed, alcoholism, drug addiction, transportation, low edu. Level, literacy, decrease access to med. care, usp, rehab)? @ -No Was there de-escalation of care discussed even if they declined (Discuss DNR or withdrawal of care, Hospice)? DNR status @ -No What co-morbidities impacted this encounter? (DM, HTN, Smoking, COPD, CAD, Ca ncer, CVA, ARF, Chemo, Hep., AIDS, mental health diagnosis, sleep apnea, morbid obesity)? @ -None Was patient admitted / discharged? Hospital course, mention meds given and route, prescriptions, significant lab abnormalities, going to OR and other pertinent info. @ -Patient was discharged. Patient was seen and evaluated for postop complication. Vitals are stable. Physical examination reveals dehiscence of incision. Case discussed with Dr. France who recommends follow-up tomorrow in his office. Strict return/alarm symptoms discussed with patient and he shows understanding and agrees with plan. Advised patient to follow-up tomorrow with Dr. France. Case discussed with my attending Dr. Michaels. Patient discharged in stable condition Undiagnosed new problem with uncertain prognosis? @ -No Drug Therapy requiring intensive monitoring for toxicity (Heparin, Nitro, Insulin, Cardizem)? @ -No Were any procedures done? @ -No Diagnosis/symptom? @ -Dehiscence of incision Acute, or Chronic, or Acute on Chronic? @ -Acute Uncomplicated (without systemic symptoms) or Complicated (systemic symptoms)? @ -Uncomplicated Side effects of treatment? @ -No Exacerbation, Progression, or Severe Exacerbation? @ -No Poses a threat to life or bodily function? How? (Chest pain, USA, [place], pneumonia, PE, COPD, DKA, ARF, appy, cholecystitis, CVA, Diverticulitis, Homicidal, Suicidal, threat to staff... and all critical care pts) @ -low likelihood (Hui Cline) Disposition <Kimberly Curry - Last Filed: 11/08/23 10:32> Is patient prescribed a controlled substance at d/c from ED?: No Time of Disposition: 14:33 <Hui Cline - Last Filed: 11/08/23 19:27> Clinical Impression: Dehiscence of incision Disposition: HOME SELF-CARE Condition: Stable Instructions (If sedation given, give patient instructions): Wound Dehiscence (ED) Additional Instructions: Please follow-up with Dr. France tomorrow in office as discussed. Please return to the Emergency Department if symptoms worsen or any other concerns. Referrals: Diego Denise MD [Primary Care Provider] - 1-2 days Uriel France MD [STAFF PHYSICIAN] - 1-2 days
[2023-11-08 10:56] VITALS: RESP 18
[2023-11-08 14:50] VITALS: BP 116/76; PULSE 61; TEMP 98.1
== END 2023-11-08 14:45 | disposition home or self-care (01) ==
LOC: EC 10:27
DX: T81.31XA Disruption of external operation (surgical) wound, not elsewhere classified, initial encounter (principal); Z87.891 Personal history of nicotine dependence
CPT/HCPCS: 99284

== ENCOUNTER 2023-11-09 12:07 | Emergency (ER) | payer OTHER ==
[2023-11-09 12:22] VITALS: RESP 18
--- NOTE | 2023-11-09 12:57 | ED ---
Recheck HPI - General Chief Complaint: Recheck/Abnormal Lab/Rx Stated Complaint: Abd wound Time Seen by Provider: 11/09/23 12:25 Source: EMS, RN notes reviewed, old records reviewed Mode of arrival: EMS Limitations: no limitations - History of Present Illness Initial Comments: This is a 43-year-old male to the ER today. Patient presents today for evalu ation of abdominal wound. Patient is a recent operative patient here at this hospital and a recheck of wound dehiscence. Patient states he woke up and his wound was dehisced further this morning secondary to hematoma Complaint: wound re-check -: days(s) Returns Today for: persistent/worsening pain related to initial visit Symptoms Since Prior Visit: no new symptoms Associated Symptoms: none Treatments Prior to Arrival: other - Related Data Home Medications Medication Instructions Recorded Confirmed Warfarin Sodium 6 mg PO WE@0900 09/15/23 11/09/23 Warfarin Sodium 8 mg PO SUMOTUTHFRSA@0900 09/15/23 11/09/23 Bifidobacterium Infantis [Align] 4 mg PO DAILY 10/17/23 11/09/23 Metoprolol Tartrate [Lopressor] 100 mg PO BID-W/MEALS 10/17/23 11/09/23 Baclofen 10 mg PO TID PRN 11/09/23 11/09/23 Ibuprofen [Motrin] 800 mg PO QID PRN 11/09/23 11/09/23 Sulfamethox-Tmp 800-160Mg [Bactrim 1 tab PO BID 11/09/23 11/09/23 DS 800-160 mg] Previous Rx's Medication Instructions Recorded HYDROcodone/APAP 5-325MG [[place] 1 tab PO Q6HR PRN 3 Days #12 tab 10/25/23 5-325] Allergies Allergy/AdvReac Type Severity Reaction Status Date / Time No Known Allergies Allergy Verified 11/10/23 12:16 Review of Systems ROS Statement: Those systems with pertinent positive or pertinent negative responses have been documented in the HPI. ROS Other: All systems not noted in ROS Statement are negative. Past Medical History Past Medical History: CVA/TIA, Hypertension Additional Past Medical History / Comment(s): CONGENITAL AORTIC VALVE STENOSIS, congenital heart disease History of Any Multi-Drug Resistant Organisms: None Reported Past Surgical History: Cardiac Valve Replacement, Cholecystectomy, Coronary Bypass/CABG, Heart Catheterization With Stent Additional Past Surgical History / Comment(s): 1991 & 1996 AORTIC VALVE REPLACED and again in 2015,CYST REMOVED FROM THROAT Past Anesthesia/Blood Transfusion Reactions: No Reported Reaction Date of Last Stent Placement:: n/a Past Psychological History: No Psychological Hx Reported Smoking Status: Former smoker Past Alcohol Use History: None Reported Past Drug Use History: Marijuana - Past Family History Mother Family Medical History: Diabetes Mellitus Father History Unknown: Yes General Exam - General Exam Comments Initial Comments: Significant dehiscence of anterior abdominal incision Limitations: no limitations General appearance: alert, in no apparent distress Head exam: Present: atraumatic, normocephalic, normal inspection Eye exam: Present: normal appearance, PERRL, EOMI. Absent: scleral icterus, conjunctival injection, periorbital swelling ENT exam: Present: normal exam, mucous membranes moist Neck exam: Present: normal inspection. Absent: tenderness, meningismus, lymphadenopathy Respiratory exam: Present: normal lung sounds bilaterally. Absent: respiratory distress, wheezes, rales, rhonchi, stridor Cardiovascular Exam: Present: regular rate, normal rhythm, normal heart sounds. Absent: systolic murmur, diastolic murmur, rubs, gallop, clicks GI/Abdominal exam: Present: soft, normal bowel sounds. Absent: distended, tenderness, guarding, rebound, rigid Extremities exam: Present: normal inspection, full ROM, normal capillary refill. Absent: tenderness, pedal edema, joint swelling, calf tenderness Back exam: Present: normal inspection Neurological exam: Present: alert, oriented X3, CN II-XII intact Psychiatric exam: Present: normal affect, normal mood Skin exam: Present: warm, dry, intact, normal color. Absent: rash Course Vital Signs 11/09/23 11/09/23 12:15 14:02 Temperature 99 F 98.5 F Pulse Rate 75 78 Respiratory 18 18 Rate Blood Pressure 120/75 136/85 O2 Sat by Pulse 96 97 Oximetry - Reevaluation(s) Reevaluation #1: 11/09/23 13:26 medical record is reviewed Reevaluation #2: Patient symptoms improved Reevaluation #3: Patient informed of results and questions answered Reevaluation #4: Was pt. sent in by a medical professional or institution (, PA, LOOM MECHANIC, urgent care, hospital, or group home...) When possible be specific @ -no Did you speak to anyone other than the patient for history (EMS, parent, family, police, friend...)? What history was obtained from this source @ -no Did you review nursing and triage notes (agree or disagree)? Why? @ -agree Are old charts reviewed (outside hosp., previous admission, EMS record, old EKG, old radiological studies, urgent care reports/EKG's, group home records)? Report findings @ -yes Differential Diagnosis (chest pain, altered mental status, abdominal pain women, abdominal pain men, vaginal bleeding, weakness, fever, dyspnea, syncope, headache, dizziness, GI bleed, back pain, seizure, CVA, palpatations, mental health, musculoskeletal)? @ -prior EKG interpreted by me (3pts min.). @ -no X-rays interpreted by me (1pt min.). @ -no CT interpreted by me (1pt min.). @ -no U/S interpreted by me (1pt. min.). @ -no What testing was considered but not performed or refused? (CT, X-rays, U/S, labs)? Why? @ -none What meds were considered but not given or refused? Why? @ -none Did you discuss the management of the patient with other professionals (professionals i.e. , PA, LOOM MECHANIC, lab, RT, psych nurse, social scientist, montessori teacher, teacher, custodial officer, shoe parts caser)? Give summary @ -no Was smoking cessation discussed for >3mins.? @ -no Were there social determinants of health that impacted care today? How? (Homelessness, low income, unemployed, alcoholism, drug addiction, transportation, low edu. Level, literacy, decrease access to med. care, senior care, rehab)? @ -none Was there de-escalation of care discussed even if they declined (Discuss DNR or withdrawal of care, Hospice)? DNR status @ -no What co-morbidities impacted this encounter? (DM, HTN, Smoking, COPD, CAD, Cancer, CVA, ARF, Chemo, Hep., AIDS, mental health diagnosis, sleep apnea, morbid obesity)? @ -none Was patient admitted / discharged? Hospital course, mention meds given and route, prescriptions, significant lab abnormalities, going to OR and other pertinent info. @ -43 male with postsurgical complication wound dehiscence, patient will fol low-up in outpatient office of general surgery and can be discharged Discharge Was critical care preformed (if so, how long)? @ -no Undiagnosed new problem with uncertain prognosis? @ -no Drug Therapy requiring intensive monitoring for toxicity (Heparin, Nitro, Insulin, Cardizem)? @ -no Were any procedures done? @ -no Diagnosis/symptom? @ -Surgical complication wound dehiscence Acute, or Chronic, or Acute on Chronic? @ -Acute Uncomplicated (without systemic symptoms) or Complicated (systemic symptoms)? @ -Complicated Side effects of treatment? @ -no Exacerbation, Progression, or Severe Exacerbation? @ -exacerbation Poses a threat to life or bodily function? How? (Chest pain, [place], [place], pneumonia, PE, COPD, DKA, ARF, appy, cholecystitis, CVA, Diverticulitis, Homicidal, Suicidal, threat to staff... and all critical care pts) @ -yes postsurgical complication Reevaluation #5: Differential Syncope: Valvular disease, hypertrophic cardiomyopathy, pulmonary embolism, tamponade, tachycardia, bradycardia, AR, hypovolemia, hemorrhage, dissection, anemia, intracranial hemorrhage, seizure, hypoglycemia, carbon monoxide poisoning, this is not meant to be an all-inclusive list. - Consultations Consultation #1: Poke with Dr. Erazo who will see the patient in his office today Medical Decision Making - Medical Decision Making 43 male with postsurgical complication wound dehiscence, patient will follow-up in outpatient office of general surgery and can be discharged Disposition Clinical Impression: Encounter for wound re-check Disposition: HOME SELF-CARE Condition: Good Instructions (If sedation given, give patient instructions): Acute Wound Care (ED), Chronic Wound Care (ED) Is patient prescribed a controlled substance at d/c from ED?: No Referrals: Diego Denise MD [Primary Care Provider] - 1-2 days Uriel France MD [STAFF PHYSICIAN] - 1-2 days Time of Disposition: 13:40
[2023-11-09] MEDS: HYDROmorphone 1 MG/ML 1 ML SYRINGE IVP STA (13:09)
[2023-11-09] MEDS: SODIUM CHLORIDE 0.9% 1,000 ML IV STA (13:09)
[2023-11-09] MEDS: ONDANSETRON 4 MG/2 ML VIAL IVP STA (13:10)
[2023-11-09 14:18] VITALS: BP 136/85; PULSE 78; TEMP 98.5
== END 2023-11-09 14:02 | disposition home or self-care (01) ==
LOC: EC 12:07
DX: Z48.00 Encounter for change or removal of nonsurgical wound dressing (principal); F12.90 Cannabis use, unspecified, uncomplicated; Z87.891 Personal history of nicotine dependence
CPT/HCPCS: 99283; 96374; 96361; J1170

== ENCOUNTER 2023-11-10 12:13 | Emergency (ER) | payer OTHER ==
--- NOTE | 2023-11-10 13:33 | ED ---
Recheck HPI - General Chief Complaint: Recheck/Abnormal Lab/Rx Stated Complaint: Recheck-wound issue Time Seen by Provider: 11/10/23 13:21 Source: patient, RN notes reviewed, old records reviewed Mode of arrival: ambulatory Limitations: no limitations - History of Present Illness Initial Comments: 43-year-old male presented to the ER with a chief complaint of wound check. Patient underwent abdominal surgery with colostomy placement on 10-18-2023 for perforated diverticulitis by Dr. France. He reports on 522 ronnie were removed and later that night/the next day he noticed the wound reopened. He was seen here yesterday for a wound check as well. He states he followed up with Dr. France yesterday who placed packing and advised him to follow-up with wound care/home care. Patient states he is unsure how to care for wound and does not have proper supplies. He states he is having difficulty obtaining home wound care as they do not accept his insurance. Patient denies any fevers, chills, nausea, vomiting, chest pain, shortness of breath, urinary complaints or peripheral edema. - Related Data Home Medications Medication Instructions Recorded Confirmed Warfarin Sodium 6 mg PO WE@0900 09/15/23 11/09/23 Warfarin Sodium 8 mg PO SUMOTUTHFRSA@0900 09/15/23 11/09/23 Bifidobacterium Infantis [Align] 4 mg PO DAILY 10/17/23 11/09/23 Metoprolol Tartrate [Lopressor] 100 mg PO BID-W/MEALS 10/17/23 11/09/23 Baclofen 10 mg PO TID PRN 11/09/23 11/09/23 Ibuprofen [Motrin] 800 mg PO QID PRN 11/09/23 11/09/23 Sulfamethox-Tmp 800-160Mg [Bactrim 1 tab PO BID 11/09/23 11/09/23 DS 800-160 mg] Previous Rx's Medication Instructions Recorded HYDROcodone/APAP 5-325MG [B[place]ford 1 tab PO Q6HR PRN 3 Days #12 tab 10/25/23 5-325] Allergies Allergy/AdvReac Type Severity Reaction Status Date / Time No Known Allergies Allergy Verified 11/10/23 12:16 Review of Systems ROS Statement: Those systems with pertinent positive or pertinent negative responses have been documented in the HPI. ROS Other: All systems not noted in ROS Statement are negative. Past Medical History Past Medical History: CVA/TIA, Hypertension Additional Past Medical History / Comment(s): CONGENITAL AORTIC VALVE STENOSIS, congenital heart disease History of Any Multi-Drug Resistant Organisms: None Reported Past Surgical History: Cardiac Valve Replacement, Cholecystectomy, Coronary Bypass/CABG, Heart Catheterization With Stent Additional Past Surgical History / Comment(s): 1991 & 1996 AORTIC VALVE REPLACED and again in 2014,CYST REMOVED FROM THROAT Past Anesthesia/Blood Transfusion Reactions: No Reported Reaction Date of Last Stent Placement:: n/a Past Psychological History: No Psychological Hx Reported Smoking Status: Former smoker Past Alcohol Use History: None Reported Past Drug Use History: Marijuana - Past Family History Mother Family Medical History: Diabetes Mellitus Father History Unknown: Yes General Exam Limitations: no limitations General appearance: alert, in no apparent distress Respiratory exam: Present: normal lung sounds bilaterally. Absent: respiratory distress, wheezes, rales, rhonchi, stridor Cardiovascular Exam: Present: regular rate, normal rhythm, clicks (mechanical heart valve) GI/Abdominal exam: Present: soft, normal bowel sounds, other (4cm wound midline abdomen. no purulent drainage or surrounding erythema. Packing in place. ). Absent: distended, tenderness, guarding, rebound, rigid Neurological exam: Present: alert, oriented X3, CN II-XII intact Skin exam: Present: warm, dry, intact, normal color. Absent: rash Course Vital Signs 11/10/23 11/10/23 12:14 13:43 Temperature 98.3 F 98.1 F Pulse Rate 73 68 Respiratory 20 18 Rate Blood Pressure 150/93 126/85 O2 Sat by Pulse 99 Oximetry Medical Decision Making - Medical Decision Making Was pt. sent in by a medical professional or institution (, PA, DUCT INSTALLER, urgent care, hospital, or care home...) When possible be specific @ -No Did you speak to anyone other than the patient for history (EMS, parent, family, police, friend...)? What history was obtained from this source @ -No Did you review nursing and triage notes (agree or disagree)? Why? @ -I reviewed and agree with nursing and triage notes Were old charts reviewed (outside hosp., previous admission, EMS record, old EKG, old radiological studies, urgent care reports/EKG's, care home records)? Report findings @ -No old charts were reviewed Differential Diagnosis (chest pain, altered mental status, abdominal pain women, abdominal pain men, vaginal bleeding, weakness, fever, dyspnea, syncope, headache, dizziness, GI bleed, back pain, seizure, CVA, palpatations, mental health, musculoskeletal)? @ -Wound dehiscence, cellulitis, wound infection this list is not meant to be all-inclusive EKG interpreted by me (3pts min.). @ -None X-rays interpreted by me (1pt min.). @ -None done CT interpreted by me (1pt min.). @ -None done U/S interpreted by me (1pt. min.). @ -None done What testing was considered but not performed or refused? (CT, X-rays, U/S, labs)? Why? @ -None What meds were considered but not given or refused? Why? @ -None Did you discuss the management of the patient with other professionals (professionals i.e. , PA, DUCT INSTALLER, lab, RT, psych nurse, manager social responsibility, director food safety, teacher, bank operations officer, caser in)? Give summary @ -Yes, case discussed with case management who provided patient with at home wound care information. Was smoking cessation discussed for >3mins.? @ -No Was critical care preformed (if so, how long)? @ -No Were there social determinants of health that impacted care today? How? (Homelessness, low income, unemployed, alcoholism, drug addiction, transportation, low edu. Level, literacy, decrease access to med. care, retirement, rehab)? @ -Patient having difficulty finding in home wound care that will take his insurance. Was there de-escalation of care discussed even if they declined (Discuss DNR or withdrawal of care, Hospice)? DNR status @ -No What co-morbidities impacted this encounter? (DM, HTN, Smoking, COPD, CAD, Cancer, CVA, ARF, Chemo, Hep., AIDS, mental health diagnosis, sleep apnea, morbid obesity)? @ -None Was patient admitted / discharged? Hospital course, mention meds given and route, prescriptions, significant lab abnormalities, going to OR and other pe rtinent info. @ -Discharge. 43-year-old male presented to ER with chief complaint of wound check. Patient underwent abdominal surgery by Dr. France on 10-18-2023. Patient has been seen here multiple times for wound assessments as he is unsure how to care for the wound. Vitals upon arrival stable. Exam significant for 4 cm midline surgical incision with dehiscence of superior aspect. No purulent drainage or surrounding erythema. Packing in place. At this time there is no evidence of infection and patient will be educated on wound care and discharged in stable condition. Pain controlled in the ER. I discussed at length wound care and continued use of abdominal binder for support/pain control. Patient advised to follow-up closely with Dr. France next week. Patient given abdominal pads for daily changes. I also discussed this case with case management who provided patient with at home wound care information. Strict return parameters discussed. Patient discharged in stable condition with follow-up to Dr. France. Patient verbally expressed understanding and agreement with care plan. Case discussed with ED attending, Dr. Triana. Undiagnosed new problem with uncertain prognosis? @ -No Drug Therapy requiring intensive monitoring for toxicity (Heparin, Nitro, Insulin, Cardizem)? @ -No Were any procedures done? @ -No Diagnosis/symptom? @ -Dehiscence of incision/wound check Acute, or Chronic, or Acute on Chronic? @ -Acute Uncomplicated (without systemic symptoms) or Complicated (systemic symptoms)? @ -Uncomplicated Side effects of treatment? @ -No Exacerbation, Progression, or Severe Exacerbation? @ -No Poses a threat to life or bodily function? How? (Chest pain, [place], [place], pneumonia, PE, COPD, DKA, ARF, appy, cholecystitis, CVA, Diverticulitis, Homicidal, Suic idal, threat to staff... and all critical care pts) @ -No Disposition Clinical Impression: Dehiscence of incision, Encounter for wound re-check Disposition: HOME SELF-CARE Condition: Stable Instructions (If sedation given, give patient instructions): Chronic Wound Care (ED), Wound Dehiscence (ED) Additional Instructions: Keep wound clean and dry. Change covering daily. Follow-up with Dr. France as scheduled. Monitor for signs of infections including surrounding redness or discolored discharge. Return to the ER for any new or worsening symptoms. Is patient prescribed a controlled substance at d/c from ED?: No Referrals: Diego Denise MD [Primary Care Provider] - 1-2 days [facility], [NON-STAFF] - 1-2 days Uriel France MD [STAFF PHYSICIAN] - 1-2 days Time of Disposition: 13:35
[2023-11-10] MEDS: HYDROmorphone 0.5 MG/0.5 ML SYRINGE IM STA (13:46)
[2023-11-10 13:48] VITALS: BP 126/85; PULSE 68; RESP 18; TEMP 98.1
== END 2023-11-10 13:57 | disposition home or self-care (01) ==
LOC: EC 12:13
DX: T81.30XA Disruption of wound, unspecified, initial encounter (principal); Z48.01 Encounter for change or removal of surgical wound dressing; F12.90 Cannabis use, unspecified, uncomplicated; Z87.891 Personal history of nicotine dependence
CPT/HCPCS: 99283 ×2; 96372; J1170

== ENCOUNTER → 2024-02-21 | Outpatient (CLI) | payer OTHER ==
[2024-02-21 18:21] LABS: Basophils # (A) 0.06 X 10*3/uL (0.00-0.10); Basophils % (A) 1.1 %; Eosinophils # (A) 0.26 X 10*3/uL (0.04-0.35); Eosinophils % (A) 4.9 %; Lymphocytes # (A) 1.09 X 10*3/uL (0.90-5.00); Lymphocytes % (A) 20.6 %; MCHC 34.9 g/dL (32.0-37.0); Mean Platelet Volume 10.4 FL (9.5-12.2); Monocytes % (A) 9.4 %; NRBC Per 100 WBC 0 X 10*3/uL (0.00-0.01); Neutrophils # (A) 3.37 X 10*3/uL (1.80-7.70); Neutrophils % (A) 63.6 %; Platelet Count 275 X 10*3/uL (140-440); RDW 13.7 % (11.5-14.5)
[2024-02-21 18:33] LABS: Potassium 4.1 mmol/L (3.5-5.5)
== END | disposition home or self-care (01) ==
LOC: LABPAT 14:29
PROVIDERS: ATTEND Surgery
DX: Z01.818 Encounter for other preprocedural examination
CPT/HCPCS: 80051; 85025; 86850; 86900; 86901

== ENCOUNTER 2024-02-26 13:12 | Day surgery (SDC) | payer OTHER ==
[2024-02-21 10:47] VITALS: BMI 30.9
[2024-02-26] MEDS ORDERED: LIDOCAINE 1% (10MG/ML) FOR IV START INTRADERMA PRN (13:37)
[2024-02-26 13:42] VITALS: TEMP 96.7
[2024-02-26] MEDS: IV FLUID CONTINUATION 1,000 ML IV ONE (14:00)
[2024-02-26] MEDS: LACTATED RINGERS 1,000 ML IV SCH (14:00)
[2024-02-26] MEDS ORDERED: PROPOFOL 10 MG/ML 20 ML VIAL IV ONE (14:43)
[2024-02-26] MEDS ORDERED: LIDOCAINE 1% INJ 10MG/ML (20 ML MDV) ONE (14:43)
--- NOTE | 2024-02-26 14:58 | P.OP ---
Date of Procedure: 02/26/24 Preoperative Diagnosis: History of perforated diverticulitis Postoperative Diagnosis: Diverticulosis Procedure(s) Performed: Colonoscopy Anesthesia: MAC Surgeon: Uriel France Pathology: none sent Condition: stable Disposition: PACU Description of Procedure: Patient was placed on the endoscopy table in the lateral position. He received IV sedation. Digital rectal exam was performed. This revealed no abnormality. The flexible colonoscope was then placed patient anus and passed to the rectal stump. The rectal stump measured approximately 18 cm length. This point scope was drawn. Patient rotated back. And then the colonoscope was placed the patient's colostomy site. The colonoscope was advanced through the colon into the right colon. There is a large amount liquid stool. The visualized right colon appeared normal. The transverse colon appeared normal. The scope was brought back in a few scattered diverticuli seen in the remaining descending colon scope withdrawn for the patient.
[2024-02-26 15:06] VITALS: RESP 16
[2024-02-26 15:17] VITALS: BP 119/81; PULSE 60
[2024-02-26] MEDS: NA PHOS,M-B/NA PHOS,DI-BA 133 ML ENEMA RECTAL STA (15:36)
== END 2024-02-26 16:20 | disposition home or self-care (01) ==
LOC: ORWHC2ENDO 13:12
PROVIDERS: ATTEND Surgery
DX: K57.40 Diverticulitis of both small and large intestine with perforation and abscess without bleeding
CPT/HCPCS: 44388; 45378

== ENCOUNTER 2024-03-25 07:12 | Inpatient (IN) | payer OTHER ==
[~2024-03-25 07:12] MED LIST: LIDOCAINE 1% (10MG/ML) FOR IV START INTRADERMA PRN
[2024-03-25] MEDS: IV FLUID CONTINUATION 1,000 ML IV ONE ×3 (08:10→13:25)
[2024-03-25] MEDS: LACTATED RINGERS 1,000 ML IV SCH (08:33)
[2024-03-25] MEDS: ACETAMINOPHEN TAB 500 MG TAB PO PRN (08:38)
[2024-03-25] MEDS: DEXAMETHASONE SOD PHOSPHATE 4 MG/ML 1 ML VIAL IV ONE (08:38)
[2024-03-25] MEDS: HEPARIN SODIUM,PORCINE 5,000 UNIT/ML 1 ML VIAL SQ PRN (08:39)
[2024-03-25] MEDS: ONDANSETRON 4 MG/2 ML VIAL IVP ONE (08:39)
[2024-03-25 09:04] LABS: Prothrombin Time 10.9 sec (10.0-12.5)
[2024-03-25] MEDS: MIDAZOLAM 2 MG/2 ML VIAL IV ONE (09:29)
[2024-03-25] MEDS ORDERED: PROPOFOL 10 MG/ML 20 ML VIAL IV ONE (10:00)
[2024-03-25] MEDS ORDERED: HYDROmorphone (PF) 1 MG/ML ONE (10:00)
[2024-03-25] MEDS ORDERED: GLYCOPYRROLATE 0.2 MG/ML 2 ML VIAL ONE (10:00)
[2024-03-25] MEDS ORDERED: fentaNYL (PF) 50 MCG/ML 2 ML AMP ONE (10:00)
[2024-03-25] MEDS ORDERED: SUCCINYLCHOLINE CHLORIDE 200 MG/10 ML VIAL IV ONE (10:00)
[2024-03-25] MEDS ORDERED: MIDAZOLAM 2 MG/2 ML VIAL ONE (10:00)
[2024-03-25] MEDS: metroNIDAZOLE-NS PMX 500 MG in SALINE 1 100ML.BAG IVPB PRN (10:00)
[2024-03-25] MEDS ORDERED: ROPIVACAINE 5 MG/ML 30 ML VIAL ONE (10:00)
[2024-03-25] MEDS ORDERED: ROCURONIUM 10 MG/ML (5 ML VIAL) IV ONE (10:00)
[2024-03-25] MEDS ORDERED: DEXAMETHASONE SOD PHOSPHATE 4 MG/ML 1 ML VIAL ONE (10:00)
[2024-03-25] MEDS ORDERED: LIDOCAINE 1% INJ 10MG/ML (20 ML MDV) ONE (10:00)
[2024-03-25] MEDS ORDERED: ePHEDrine 50 MG/ML 1 ML VIAL ONE (10:00)
[2024-03-25] MEDS ORDERED: SUGAMMADEX SODIUM 200 MG/2 ML SDV IV ONE (10:00)
[2024-03-25] MEDS ORDERED: METOCLOPRAMIDE 5 MG/ML 2 ML VIAL IVP PRN (12:21)
--- NOTE | 2024-03-25 12:21 | P.OP ---
Date of Procedure: 03/25/24 Preoperative Diagnosis: History of perforated diverticulitis Postoperative Diagnosis: History of perforated diverticulitis Procedure(s) Performed: Reversal colostomy Repair of incisional hernia greater than 10 cm Anesthesia: LISA Surgeon: Uriel France Estimated Blood Loss (ml): 50 Pathology: other (Colon) Condition: stable Disposition: PACU Description of Procedure: The patient was placed on the op table in th dorsolithotomy position after receiving general anesthesia. His abdomen was prepped and draped in sterile fashion. The skin incised midline. Abdominal was divided. There was evidence of incisional hernia. The hernia was greater than 10 cm in length. There were adhesions to the midline. These were lysed with sharp dissection. The colostomy was then divided at the fascial level with a YOLY stapler. The colon was then mobilized by dividing the greater omentum off the colon. A suitable at the colon was then found to reach the pelvis. The rectal stump was seen. There was a 2-0 Prolene suture on the rectal stump. At this point the colon was opened and then the anvil for the 29 mm EEA stapler was placed into the colon and the colon was closed using a YOLY stapler. The spike for the anvil was then brought out through the staple line. The malt specifications control assistant then placed the EEA stapler patient anus. The spike was then driven through the anterior rectal wall. The anvil was intact and stable. The stapler then closed. The stapler was fired. And then the staple was withdrawn. There were 2 intact tissue rings withdrawn from the stapler. Using a bowel clamp the bowel was occluded. And then the rectum was insufflated unde air water with air. There was no extravasation seen. The colostomy site was then closed using #1 STRATAFIX suture. The fascia is closed with looped #1 PDS suture. There was a large incisional hernia which was closed. Fascial closure. The colostomy was then excised with the cautery. The fascia was closed with 0 Vicryl. The skin the colostomy was closed with ronnie. Sterile dressings applied. Patient was then sent to recovery in stable condition.
[2024-03-25] MEDS: HYDROmorphone 0.5 MG/0.5 ML SYRINGE IVP PRN (12:22)
[2024-03-25] MEDS: MEPERIDINE 50 MG/ML SYRINGE IVP STA (13:04)
[2024-03-25 13:48] LABS: Basophils % (A) 0 %; Eosinophils # (A) 0.2 k/uL (0-0.7); Eosinophils % (A) 2 %; HCT 43.7 % (39.0-53.0); HGB 14.7 gm/dL (13.0-17.5); Lymphocytes # (A) 0.6 k/uL (1.0-4.8); Lymphocytes % (A) 5 %; MCH 29.7 pg (25.0-35.0); MCHC 33.7 g/dL (31.0-37.0); MCV 87.9 fL (80.0-100.0); Mean Platelet Volume 7.5; Monocytes # (A) 0.2 k/uL (0-1.0); Monocytes % (A) 2 %; Neutrophils # (A) 10.7 k/uL (1.3-7.7); Neutrophils % (A) 91 %; Platelet Count 233 k/uL (150-450); RBC 4.97 m/uL (4.30-5.90); WBC 11.7 k/uL (3.8-10.6)
[2024-03-25 14:14] LABS: African American GFR (CKD) >90 (>60 ml/min/1.73 sqM); Anion Gap 3 mmol/L; Blood Urea Nitrogen 12 mg/dL (9-20); Calcium 8.9 mg/dL (8.4-10.2); Carbon Dioxide 26 mmol/L (22-30); Chloride 108 mmol/L (98-107); Glucose 128 mg/dL (74-99); Non-African American GFR(CKD) >90 (>60 ml/min/1.73 sqM); Potassium 4.3 mmol/L (3.5-5.1); Sodium 137 mmol/L (137-145)
[2024-03-25] MEDS: HEPARIN SODIUM,PORCINE 5,000 UNIT/ML 1 ML VIAL SQ SCH (17:07)
[2024-03-25] MEDS: D5-0.45% NACL WITH KCL 20MEQ/L 1,000 ML IV SCH (17:08)
[2024-03-25] MEDS: HYDROmorphone 1 MG/ML 1 ML SYRINGE IVP PRN (18:11)
[2024-03-25] MEDS: METOPROLOL TARTRATE 50 MG TAB PO SCH (18:17)
[2024-03-25] MEDS: ONDANSETRON 4 MG/2 ML VIAL IVP PRN (18:17)
[2024-03-25] MEDS: FAMOTIDINE 20 MG/2 ML VIAL IV SCH (20:30)
[2024-03-26] MEDS ORDERED: MORPHINE SULFATE 10 MG/ML 1ML VIAL IVP PRN (08:30)
[2024-03-26] MEDS: MORPHINE SULFATE 2 MG/ML SYRINGE IVP PRN (08:50)
--- NOTE | 2024-03-26 14:27 | P.PN ---
Subjective Progress Note Date: 03/26/24 CHIEF COMPLAINT: History of perforated diverticulitis HISTORY OF PRESENT ILLNESS: Patient is postop day 1 reversal of colostomy and repair of incisional hernia greater than 10 cm. Patient reports having a bdominal pain. Noted that surgeon did order a breakthrough pain medication with morphine. Patient did have nausea this has improved. No flatus. He is urinating. Afebrile. WBC was 11.7 yesterday. PHYSICAL EXAM: VITAL SIGNS: Reviewed. GENERAL: Well-developed in no acute distress. ABDOMEN: Soft. Nondistended. Prevena wound VAC intact NEUROLOGIC: Alert and oriented. Cranial nerves II through XII grossly intact. ASSESSMENT: 1. History of perforated diverticulitis PLAN: -Continue clear liquid diet -Continue pain management -Continue IV fluids -Encourage patient to ambulate -Encourage patient to use incentive spirometer -Repeat CBC in a.m. -GI prophylaxis Pepcid and DVT prophylaxis subcu heparin Physician Radio Frequency Engineer note has been reviewed by physician. Signing provider agrees with the documented findings, assessment, and plan of care. Objective - Vital Signs Vital signs: Vital Signs Temp 98.2 F 03/26/24 07:20 Pulse 79 03/26/24 07:20 Resp 18 03/26/24 07:20 BP 128/83 03/26/24 07:20 Pulse Ox 94 L 03/26/24 07:20 FiO2 Intake & Output 03/25/24 03/26/24 03/26/24 18:59 06:59 18:59 Intake Total 2550 2160 Output Total 1650 2300 850 Balance 900 -140 -850 Weight 111.4 kg Intake: IV 2550 Oral 2160 Output: Urine 1500 2300 850 Estimated Blood Loss 150 Other: Voiding Method Indwelling Catheter Urinal - Labs CBC & Chem 7: 03/25/24 13:38 03/25/24 13:38
[2024-03-27 08:45] LABS: Basophils # (A) 0.06 X 10*3/uL (0.00-0.10); Basophils % (A) 0.6 %; Eosinophils # (A) 0.24 X 10*3/uL (0.04-0.35); Eosinophils % (A) 2.2 %; HCT 41.3 % (39.6-50.0); HGB 14.4 g/dL (13.0-17.0); Lymphocytes # (A) 0.94 X 10*3/uL (0.90-5.00); Lymphocytes % (A) 8.6 %; MCH 30.1 pg (27.0-32.0); MCHC 34.9 g/dL (32.0-37.0); MCV 86.2 FL (80.0-97.0); Mean Platelet Volume 10.5 FL (9.5-12.2); Monocytes # (A) 1.41 X 10*3/uL (0.20-1.00); NRBC Per 100 WBC 0 X 10*3/uL (0.00-0.01); Neutrophils # (A) 8.16 X 10*3/uL (1.80-7.70); Platelet Count 240 X 10*3/uL (140-440); RBC 4.79 X 10*6/uL (4.40-5.60); RDW 13.8 % (11.5-14.5); WBC 10.88 X 10*3/uL (4.50-10.00)
--- NOTE | 2024-03-27 14:38 | P.PN ---
Subjective Progress Note Date: 03/27/24 CHIEF COMPLAINT: History of perforated diverticulitis HISTORY OF PRESENT ILLNESS: Patient is postop day #2 status post reversal of colostomy and repair of incisional hernia greater than 10 cm. Patient reports his pain is controlled. Denies any nausea or vomiting. Denies any bowel activity. Afebrile. WBC down from 11.7 to 10.8 Hgb 14.4 platelets 240 Patient seen and examined with Dr. France PHYSICAL EXAM: VITAL SIGNS: Reviewed. GENERAL: Well-developed in no acute distress. ABDOMEN: Soft. Nondistended. Prevena wound VAC intact NEUROLOGIC: Alert and oriented. Cranial nerves II through XII grossly intact. ASSESSMENT: 1. History of perforated diverticulitis PLAN: -Continue clear liquid diet -Continue pain management -Continue IV fluids -Encourage patient to ambulate -Encourage patient to use incentive spirometer -Repeat CBC in a.m. -With history of mechanical aortic valve will resume Coumadin 5 mg x 1 tonight. Check PT/INR in a.m. -GI prophylaxis Pepcid and DVT prophylaxis subcu heparin Physician Lime Boiler note has been reviewed by physician. Signing provider agrees with the documented findings, assessment, and plan of care. Objective - Vital Signs Vital signs: Vital Signs Temp 98.3 F 03/27/24 14:00 Pulse 81 03/27/24 14:00 Resp 20 03/27/24 14:00 BP 122/86 03/27/24 14:00 Pulse Ox 94 L 03/27/24 14:00 FiO2 Intake & Output 03/26/24 03/27/24 03/27/24 18:59 06:59 18:59 Output Total 1100 2500 950 Balance -1100 -2500 -950 Output: Urine 1100 2500 950 Other: Voiding Method Urinal Urinal Urinal # Voids 1 # Bowel Movements 1 - Labs CBC & Chem 7: 03/27/24 03:41 03/25/24 13:38 Labs: Abnormal Lab Results - Last 24 Hours (Table) 03/27/24 Range/Units 03:41 WBC 10.88 H (4.50-10.00) X 10*3/uL Immature Gran # 0.07 H (0.00-0.04) X 10*3/uL Neutrophils # 8.16 H (1.80-7.70) X 10*3/uL Monocytes # 1.41 H (0.20-1.00) X 10*3/uL
[2024-03-27] MEDS: WARFARIN 5 MG TAB PO ONE (17:50)
--- NOTE | 2024-03-27 21:25 | CONS ---
CONSULTATION CHIEF COMPLAINT: Colostomy. HISTORY OF PRESENT ILLNESS: This gentleman is admitted for elective colostomy closure after treatment for diverticulitis. REVIEW OF SYSTEMS: He is having no fever, chills, abdominal pain, nausea, vomiting, diarrhea, melena, hematochezia, jaundice, hepatitis, renal disease, diabetes, etc. Past medical history, family history, personal, and social histories are all otherwise unremarkable and noncontributory or found in his admitting summary. ALLERGIES: He is not allergic to any medication. MEDICATIONS: He has been on, 1. Warfarin. 2. Vicodin. 3. Metoprolol. 4. Baclofen. 5. Ibuprofen. He has had a previous CVA related to aortic stenosis and has had several open-heart surgeries including mitral valve replacement. He has had a cholecystectomy. He used to smoke, but does not any longer. PHYSICAL EXAMINATION: VITAL SIGNS: Normal with a pulse of 66 and blood pressure 140/80. GENERAL: Appeared to be well developed, well nourished, no acute distress. SKIN: Color is normal. Skin is warm, dry. LYMPHATICS: Lymph nodes are not enlarged. HEAD, EARS, EYES, NOSE, MOUTH AND THROAT: Normal. NECK: Neck veins are not distended. Thyroid was normal. CHEST: Clear. CARDIAC: Demonstrated a loud S1 and S2. ABDOMEN: Soft and nontender. EXTREMITIES: Normal. NEUROLOGICAL: He is intact. IMPRESSION: 1. Previous history of diverticulitis, admitted for colostomy closure. 2. History of cardiac valve disease. 3. History of previous cerebrovascular accident. RECOMMENDATIONS: None. MMODL / IJN: [id number] /
--- NOTE | 2024-03-28 00:50 | PN ---
PROGRESS NOTE CHIEF COMPLAINT: Status post closure of colostomy. HISTORY OF PRESENT ILLNESS: This gentleman is doing well and has no complaints. He is passing gas. PHYSICAL EXAMINATION: CHEST: Clear. CARDIAC: Normal. Binder is in place. ABDOMEN: Bowel sounds are heard. IMPRESSION: 1. Status post colostomy closure. 2. Congenital heart disease. PLAN: Probably home in the next day or 2. MMODL / IJN: [id number] /
--- NOTE | 2024-03-28 02:35 | PN ---
PROGRESS NOTE DATE OF SERVICE: 03/26/2024 CHIEF COMPLAINT: Colostomy. HISTORY OF PRESENT ILLNESS: This gentleman is doing well postoperatively. He has had no fever, chills, chest pain. PHYSICAL EXAMINATION: CHEST: Clear. CARDIAC: Normal. ABDOMEN: Is in a binder. IMPRESSION: 1. Status post colostomy. 2. Status post aortic and mitral valve disease. 3. Status post previous cerebrovascular accident. PLAN: Continue to follow with Surgery. MMODL / IJN: [id number] /
[2024-03-28 08:25] LABS: Basophils # (A) 0.07 X 10*3/uL (0.00-0.10); Basophils % (A) 0.9 %; Eosinophils # (A) 0.47 X 10*3/uL (0.04-0.35); Eosinophils % (A) 6.2 %; HCT 38.1 % (39.6-50.0); HGB 13.2 g/dL (13.0-17.0); Lymphocytes # (A) 0.88 X 10*3/uL (0.90-5.00); Lymphocytes % (A) 11.6 %; MCH 30.5 pg (27.0-32.0); MCHC 34.6 g/dL (32.0-37.0); Mean Platelet Volume 10.8 FL (9.5-12.2); Monocytes # (A) 0.96 X 10*3/uL (0.20-1.00); Monocytes % (A) 12.7 %; NRBC Per 100 WBC 0 X 10*3/uL (0.00-0.01); Neutrophils # (A) 5.14 X 10*3/uL (1.80-7.70); Neutrophils % (A) 67.8 %; Platelet Count 225 X 10*3/uL (140-440); RBC 4.33 X 10*6/uL (4.40-5.60); RDW 13.8 % (11.5-14.5); WBC 7.58 X 10*3/uL (4.50-10.00)
[2024-03-28 08:56] LABS: BUN/Creat Ratio 9.22 Ratio (12.00-20.00); Blood Urea Nitrogen 8.3 mg/dL (9.0-27.0); Calcium 8.7 mg/dL (8.7-10.3); Carbon Dioxide 24.1 mmol/L (21.6-31.8); Chloride 101 mmol/L (96-109); Glucose 107 mg/dL (70-110); Potassium 4.1 mmol/L (3.5-5.5); Sodium 136 mmol/L (135-145)
[2024-03-28 09:34] LABS: INR 0.97 sec (0.93-1.11); Prothrombin Time 10.5 sec (9.9-11.9)
[2024-03-28] MEDS ORDERED: HYDROmorphone 2 MG/ML 1 ML SYRINGE IVP PRN (12:24)
--- NOTE | 2024-03-28 13:46 | P.PN ---
Subjective Progress Note Date: 03/28/24 CHIEF COMPLAINT: History of perforated diverticulitis HISTORY OF PRESENT ILLNESS: Patient is postop day #3 status post reversal of colostomy and repair of incisional hernia greater than 10 cm. Patient reports his pain is controlled. He denies any nausea or vomiting. He did pass a large amount of flatus. Afebrile. WBC is down from 10.8-7.58 Hgb 13.2 INR 0.97 Patient seen and examined with Dr. France PHYSICAL EXAM: VITAL SIGNS: Reviewed. GENERAL: Well-developed in no acute distress. ABDOMEN: Soft. Nondistended. Prevena wound VAC intact NEUROLOGIC: Alert and oriented. Cranial nerves II through XII grossly intact. ASSESSMENT: 1. History of perforated diverticulitis 2. History of mechanical aortic valve. PLAN: -Advance diet to full liquids -Possible discharge tomorrow if tolerating diet and pain is controlled -Discontinue IV fluids -Continue pain management -Encourage patient to ambulate -Encourage patient to use incentive spirometer -Coumadin per pharmacy service -GI prophylaxis Pepcid and DVT prophylaxis subcu heparin Physician Chief Bank Examiner note has been reviewed by physician. Signing provider agrees with the documented findings, assessment, and plan of care. Objective - Vital Signs Vital signs: Vital Signs Temp 97.8 F 03/28/24 08:00 Pulse 83 03/28/24 08:00 Resp 18 03/28/24 08:00 BP 121/84 03/28/24 08:00 Pulse Ox 93 L 03/28/24 08:00 FiO2 Intake & Output 03/27/24 03/28/24 03/28/24 18:59 06:59 18:59 Output Total 950 2000 Balance -950 -2000 Output: Urine 950 2000 Other: Voiding Method Urinal Urinal Urinal # Voids 1 # Bowel Movements 1 - Labs CBC & Chem 7: 03/28/24 03:26 03/28/24 03:26 Labs: Abnormal Lab Results - Last 24 Hours (Table) 03/28/24 03/28/24 Range/Units 03:26 03:26 RBC 4.33 L (4.40-5.60) X 10*6/uL Hct 38.1 L (39.6-50.0) % Immature Gran # 0.06 H (0.00-0.04) X 10*3/uL Lymphocytes # 0.88 L (0.90-5.00) X 10*3/uL Eosinophils # 0.47 H (0.04-0.35) X 10*3/uL BUN 8.3 L (9.0-27.0) mg/dL BUN/Creatinine Ratio 9.22 L (12.00-20.00) Ratio
[2024-03-28] MEDS: WARFARIN 5 MG TAB PO ONE (21:08)
[2024-03-29 04:13] LABS: Prothrombin Time 10.6 sec (10.0-12.5)
--- NOTE | 2024-03-29 11:19 | PN ---
PROGRESS NOTE DATE OF SERVICE: 03/28/2024 CHIEF COMPLAINT: Status post closure of colostomy. HISTORY OF PRESENT ILLNESS: This gentleman is doing well. He has had no issues. He has had no chest pain, shortness of breath, etc. PHYSICAL EXAMINATION: CHEST: Clear. CARDIAC: Normal. ABDOMEN: Soft, nontender. Bowel sounds are present. IMPRESSION: Status post colostomy closure. PLAN: Increase activity and diet and probably discharge soon. MMODL / IJN: [id number] /
--- NOTE | 2024-03-29 12:18 | P.PN ---
Subjective Progress Note Date: 03/29/24 CHIEF COMPLAINT: History of perforated diverticulitis HISTORY OF PRESENT ILLNESS: Patient is postop day #4 status post reversal of colostomy and repair of incisional hernia greater than 10 cm. Patient continues to report pain and requiring IV pain medication. He denies any nausea or vomiting. He had a bowel movement and flatus. He has been up and ambulating. Requesting advancement of diet. Afebrile. INR 1.0 Patient seen and examined with Dr. France PHYSICAL EXAM: VITAL SIGNS: Reviewed. GENERAL: Well-developed in no acute distress. ABDOMEN: Soft. Nondistended. Prevena wound VAC intact NEUROLOGIC: Alert and oriented. Cranial nerves II through XII grossly intact. ASSESSMENT: 1. History of perforated diverticulitis 2. History of mechanical aortic valve. PLAN: -Advance diet to regular -Recommend patient stays over the weekend until his INR is therapeutic -Pharmacy is dosing Coumadin -Will switch from subcu heparin to Lovenox 40 mg SQ twice daily for bridging -Continue pain management -Encourage patient to ambulate -Encourage patient to use incentive spirometer -Coumadin per pharmacy service -GI prophylaxis Pepcid and DVT prophylaxis Lovenox Physician Disposal Plant Operator note has been reviewed by physician. Signing provider agrees with the documented findings, assessment, and plan of care. Objective - Vital Signs Vital signs: Vital Signs Temp 97.7 F 03/29/24 07:28 Pulse 84 03/29/24 07:28 Resp 18 03/29/24 07:28 BP 134/88 03/29/24 07:28 Pulse Ox 98 03/29/24 07:28 FiO2 Intake & Output 03/28/24 03/29/24 03/29/24 18:59 06:59 18:59 Intake Total 1250 Output Total 1999 500 Balance -750 -500 Intake: Intake, IV Titration 600 Amount D5-0.45% NaCl with KCl 600 20Meq/l 1,000 ml @ 125 mls/hr IV .Q8H [facility] Rx#: [id number] Oral 650 Output: Urine 2000 500 Other: Voiding Method Urinal Urinal Urinal # Voids 4 1 - Labs CBC & Chem 7: 03/28/24 03:26 03/28/24 03:26
[2024-03-29] MEDS: HYDROcodone/APAP 5-325MG 1 EACH TAB PO PRN (17:44)
--- NOTE | 2024-03-29 20:40 | PN ---
PROGRESS NOTE DATE OF SERVICE: 03/29/2024 CHIEF COMPLAINT: Closure of colostomy. HISTORY OF PRESENT ILLNESS: This gentleman is doing well. He is eating. He is passing gas and having bowel movements. PHYSICAL EXAMINATION: CHEST: Clear. CARDIAC: Normal. ABDOMEN: Soft and nontender. IMPRESSION: Status post colostomy closure. PLAN: Probably home in the next day or 2. MMODL / IJN: [id number] /
[2024-03-29] MEDS: WARFARIN 5 MG TAB PO ONE (22:06)
[2024-03-29] MEDS: ENOXAPARIN 40 MG/0.4 ML SYRINGE SQ SCH (22:07)
[2024-03-30 04:04] LABS: INR 1.1 (<1.2); Prothrombin Time 11.5 sec (10.0-12.5)
[2024-03-30 09:26] LABS: HCT 42.5 % (39.6-50.0); HGB 14.7 g/dL (13.0-17.0); MCH 30.2 pg (27.0-32.0); MCHC 34.6 g/dL (32.0-37.0); MCV 87.3 FL (80.0-97.0); Mean Platelet Volume 10.4 FL (9.5-12.2); NRBC Per 100 WBC 0 X 10*3/uL (0.00-0.01); Platelet Count 353 X 10*3/uL (140-440); RBC 4.87 X 10*6/uL (4.40-5.60); RDW 13.7 % (11.5-14.5); WBC 8.51 X 10*3/uL (4.50-10.00)
--- NOTE | 2024-03-30 16:46 | P.PN ---
Subjective Progress Note Date: 03/30/24 No acute events overnight. Patient states that his pain is well-controlled. No fevers or chills. No shortness of breath or chest pain. Admits to bowel movements and flatus. Tolerating diet. No hematochezia. No N/V. Objective - Vital Signs Vital signs: Vital Signs Temp 98.3 F 03/30/24 13:07 Pulse 86 03/30/24 13:07 Resp 18 03/30/24 13:07 BP 123/85 03/30/24 13:07 Pulse Ox 97 03/30/24 13:07 FiO2 Intake & Output 03/29/24 03/30/24 03/30/24 18:59 06:59 18:59 Other: Voiding Method Urinal # Voids 2 2 3 # Bowel Movements 1 1 - Exam Gen: AxO, NAD Pulm: non-labored respirations Abd: soft, non-tender, non-distended. Incision: C/D/I Extrem: no edema seen - Labs CBC & Chem 7: 03/30/24 03:35 03/28/24 03:26 Assessment and Plan Assessment: Patient is a 44-year-old male who is status post colostomy reversal. He is progressing well Plan: -Diet as tolerated -IVF hydration -Encourage ambulation -PRN pain and nausea control -Continue heparin drip due to mechanical valve -Tentative DC on monday Clayton Zhao M.D. General Surgery
[2024-03-30] MEDS: WARFARIN 7.5 MG TAB PO ONE (18:17)
--- NOTE | 2024-03-30 22:11 | PN ---
PROGRESS NOTE DATE OF SERVICE: 03/30/2024 CHIEF COMPLAINT: Status post colostomy closure. HISTORY OF PRESENT ILLNESS: This gentleman is doing well. PHYSICAL EXAMINATION: CHEST: Clear. CARDIAC: Normal. ABDOMEN: Bowel sounds are present. IMPRESSION: Status post colostomy closure. PLAN: No change in his program. MMODL / IJN: [id number] /
[2024-03-31 03:40] LABS: INR 1.2 (<1.2); Prothrombin Time 12.7 sec (10.0-12.5)
[2024-03-31] MEDS: LACTOBACILLUS ACIDOPHILUS/PECT 1 EACH CAPSULE PO SCH (07:55)
--- NOTE | 2024-03-31 11:19 | P.PN ---
Subjective Progress Note Date: 03/31/24 Principal diagnosis: Ostomy reversal Patient comfortable today. Tolerating diet. Having bowel movements. Denies nausea or vomiting. Objective - Vital Signs Vital signs: Vital Signs Temp 98.0 F 03/31/24 07:09 Pulse 83 03/31/24 07:09 Resp 16 03/31/24 07:09 BP 121/84 03/31/24 07:09 Pulse Ox 97 03/31/24 07:09 FiO2 Intake & Output 03/30/24 03/31/24 03/31/24 18:59 06:59 18:59 Other: # Voids 3 # Bowel Movements 1 - Exam Abdomen: Soft, nondistended, incision clean and dry, minimal tenderness - Labs CBC & Chem 7: 03/30/24 03:35 03/28/24 03:26 Labs: Abnormal Lab Results - Last 24 Hours (Table) 03/31/24 Range/Units 03:08 PT 12.7 H (10.0-12.5) sec INR 1.2 H (<1.2) Assessment and Plan (1) Diverticulitis of colon with perforation Narrative/Plan: Patient doing well after recent ostomy reversal. Continue diet. Continue Coumadin. Recheck labs tomorrow. Current Visit: No Status: Acute Code(s): K57.20 - DVTRCLI OF LG INT W PERFORATION AND ABSCESS W/O BLEEDING SNOMED Code(s): 00874108
[2024-03-31] MEDS: WARFARIN 3 MG TAB PO ONE (17:33)
--- NOTE | 2024-04-01 02:30 | PN ---
PROGRESS NOTE DATE OF SERVICE: 03/31/2024 CHIEF COMPLAINT: Status post colostomy reversal. HISTORY OF PRESENT ILLNESS: This gentleman is doing well and not having any problems. PHYSICAL EXAMINATION: CHEST: Clear. CARDIAC: Normal. ABDOMEN: Soft. Bowel sounds are present. IMPRESSION: Status post colostomy closure. PLAN: Probably home tomorrow. MMODL / IJN: [id number] /
[2024-04-01 03:30] LABS: INR 1.4 (<1.2); Prothrombin Time 14.9 sec (10.0-12.5)
[2024-04-01 08:03] VITALS: RESP 16
[2024-04-01] MEDS ORDERED: MORPHINE SULFATE 4 MG/ML SYRINGE IVP PRN (10:37)
[2024-04-01] MEDS: HYDROcodone/APAP 10-325MG 1 EACH TAB PO PRN (10:46)
[2024-04-01 15:16] VITALS: BP 110/74; PULSE 80; TEMP 98.4
--- NOTE | 2024-04-01 15:32 | P.DS ---
Providers Date of admission: 03/25/24 07:12 Expected date of discharge: 04/01/24 Attending physician: Uriel France Consults: 03/25/24 12:21 Consult Physician Routine Consulting Provider: Diego Denise Consult Reason/Comments: Medical management nt Do you want consulting provider notified?: Yes Primary care physician: Diego Denise Hospital Course: Discharge diagnosis 1. History of perforated diverticulitis 2. History of mechanical aortic valve Hospital course This is a 44-year-old male with history of perforated diverticulitis. He is status post reversal of colostomy and repair of incisional hernia greater than 10 cm. Patient's pain is controlled. He is having bowel movements. He is tolerating diet. He is afebrile. He has been up and ambulating. He is stable for discharge. Patient's INR is still low at 1.4. Patient being given prescription for Lovenox. Dr. France is recommending Lovenox 40 mg twice daily for bridging due to his recent surgery. Dr. France has cleared patient for discharge. Please refer to chart for any further details. Physician Housing Manager note has been reviewed by physician. Signing provider agrees with the documented findings, assessment, and plan of care. Patient Condition at Discharge: Stable Plan - Discharge Summary Discharge Rx Participant: No New Discharge Prescriptions: New Enoxaparin [Lovenox] 40 mg SQ Q12H #14 each Continue Metoprolol Tartrate [Lopressor] 100 mg PO BID-W/MEALS HYDROcodone/APAP 10-325MG [Bromide 10-325] 1 tab PO TID PRN PRN Reason: Pain Warfarin Sodium 4 mg PO MO Warfarin Sodium 3 mg PO SUTUWETHFRSA oxyCODONE HCL [Roxicodone] 5 mg PO Discontinued Enoxaparin [Lovenox] 100 mg SQ DIRECTED Discharge Medication List Metoprolol Tartrate [Lopressor] 100 mg PO BID-W/MEALS 10/17/23 [History] HYDROcodone/APAP 10-325MG [Bromide 10-325] 1 tab PO TID PRN 02/21/24 [History] Warfarin Sodium 3 mg PO SUTUWETHFRSA 03/19/24 [History] Warfarin Sodium 4 mg PO MO 03/19/24 [History] oxyCODONE HCL [Roxicodone] 5 mg PO 03/25/24 [History] Enoxaparin [Lovenox] 40 mg SQ Q12H #14 each 04/01/24 [Rx] Follow up Appointment(s)/Referral(s): [facility], [NON-STAFF] - As Needed Uriel France MD [STAFF PHYSICIAN] - 1 Week Activity/Diet/Wound Care/Special Instructions: No driving while taking pain medication No lifting over 10 pounds You may shower. No soaking or tub baths for 2 weeks Very light activity until you are reevaluated at your follow up appointment with your surgeon Discharge Disposition: HOME SELF-CARE
[2024-04-01 15:56] VITALS: BMI 32.3
[2024-04-01] MEDS: WARFARIN 3 MG TAB PO ONE (16:02)
--- NOTE | 2024-04-03 00:03 | PN ---
PROGRESS NOTE DATE OF SERVICE: 04/01/2024 CHIEF COMPLAINT: Status post colostomy closure. HISTORY OF PRESENT ILLNESS: This gentleman is doing well. He expects to go home today. PHYSICAL EXAMINATION: VITAL SIGNS: Normal. CHEST: Clear. CARDIAC: Unchanged with his loud prosthetic valve sounds. IMPRESSION: 1. Status post colostomy closure. 2. Status post aortic valve replacement. PLAN: Probably home today. MMODL / IJN: [id number] /
--- NOTE | 2024-04-03 06:07 | DS ---
DISCHARGE SUMMARY CHIEF COMPLAINT: Colostomy reversal. HISTORY OF PRESENT ILLNESS: This gentleman is doing well and he will probably be going home today and he will follow up in the office in several days. PHYSICAL EXAMINATION: VITAL SIGNS: Normal. He is afebrile. CHEST: Clear. CARDIAC: Normal. ABDOMEN: Slightly distended, but incisions are dry. IMPRESSION: 1. Status post colostomy reversal. 2. History of diverticulitis. PLAN: Probably home today. MMODL / IJN: [id number] /
== END 2024-04-01 16:18 | disposition home or self-care (01) | DRG 231 ==
LOC: 2ORMAIN 07:12 → 4SSUR 14:10
PROVIDERS: ADMIT Surgery; ATTEND Surgery
PROC: 0DBE0ZZ Excision of Large Intestine, Open Approach (ICD-10-PCS; principal; 2024-03-25 09:45)
PROC: 0DBU0ZZ Excision of Omentum, Open Approach (ICD-10-PCS; principal; 2024-03-25 09:45)
PROC: 0WQF0ZZ Repair Abdominal Wall, Open Approach (ICD-10-PCS; principal; 2024-03-25 09:45)
DX: Z43.3 Encounter for attention to colostomy (principal); K57.20 Diverticulitis of large intestine with perforation and abscess without bleeding; I10 Essential (primary) hypertension; K43.2 Incisional hernia without obstruction or gangrene; R11.0 Nausea; Z79.01 Long term (current) use of anticoagulants; Z86.73 Personal history of transient ischemic attack (TIA), and cerebral infarction without residual deficits; Z95.2 Presence of prosthetic heart valve; Z87.19 Personal history of other diseases of the digestive system; Z79.1 Long term (current) use of non-steroidal anti-inflammatories (NSAID); Z79.899 Other long term (current) drug therapy
CPT/HCPCS: 64999; 80048; 85025; 85027; 85610; 85730; 86850; 86900; 86901; 88304

== ENCOUNTER 2024-04-06 12:35 | Emergency (ER) | payer OTHER ==
[2024-04-06 12:41] VITALS: RESP 18; TEMP 98.3
--- NOTE | 2024-04-06 13:01 | ED ---
General Adult HPI - General Chief complaint: Recheck/Abnormal Lab/Rx Stated complaint: Post-op comp Time Seen by Provider: 04/06/24 12:44 Source: patient Mode of arrival: ambulatory Limitations: no limitations - History of Present Illness Initial comments: Dictation was produced using [employer] dictation software. please excuse any grammatical, word or spelling errors. Chief Complaint: 44-year-old male presents to the emergency department for staple removal History of Present Illness: Patient is a 44-year-old male he had surgery by one of our surgeons, Dr. France. On 03/25 patient had colostomy reversal. He presented to triage to have his ronnie removed. Patient states that there was some mild drainage coming from his lateral incision. Denies any abdominal pain. No nausea vomiting states that he wants the ronnie removed because he feels like it is causing more harm than good. States that it is a little irritating to his skin belly. Triage nurse did not feel comfortable removing his ronnie and he was told to check in as an emergency department patient. Patient has a follow-up appointment in 2 days. The ROS documented in this emergency department record has been reviewed and confirmed by me. Those systems with pertinent positive or negative responses have been documented in the HPI. All other systems are other negative and/or noncontributory. - Related Data Home Medications Medication Instructions Recorded Confirmed Metoprolol Tartrate [Lopressor] 100 mg PO BID-W/MEALS 10/17/23 03/25/24 HYDROcodone/APAP 10-325MG [[place] 1 tab PO TID PRN 02/21/24 03/25/24 10-325] Warfarin Sodium 3 mg PO SUTUWETHFRSA 03/19/24 03/19/24 Warfarin Sodium 4 mg PO MO 03/19/24 03/19/24 oxyCODONE HCL [Roxicodone] 5 mg PO 03/25/24 Previous Rx's Medication Instructions Recorded Enoxaparin [Lovenox] 40 mg SQ Q12H #14 each 04/01/24 Cephalexin [Keflex] 500 mg PO Q6HR 5 Days #20 cap 04/06/24 Sulfamethox-Tmp 800-160Mg [Bactrim 1 tab PO Q12HR 5 Days #10 tab 04/06/24 DS 800-160 mg] Allergies Allergy/AdvReac Type Severity Reaction Status Date / Time No Known Allergies Allergy Verified 04/06/24 12:41 Review of Systems ROS Statement: Those systems with pertinent positive or pertinent negative responses have been documented in the HPI. ROS Other: All systems not noted in ROS Statement are negative. Past Medical History Past Medical History: CVA/TIA, Hypertension Additional Past Medical History / Comment(s): CONGENITAL AORTIC VALVE STENOSIS, congenital heart disease, MEMORY DEFICIT FROM STROKE, PERFORATED BOWEL/DIVERTICULITIS History of Any Multi-Drug Resistant Organisms: None Reported Past Surgical History: Bowel Resection, Cardiac Valve Replacement, Cholecystectomy, Heart Catheterization With Stent Additional Past Surgical History / Comment(s): 1981, 1992 & 1996 aortic balloon valvuloplasty, aortic valve replacement 2014, AAA reair, CYST REMOVED FROM THROAT, PT STATES 2-3 CARDIAC STENTS, bowel resection w/ colostomy October 2023, Colostomy reversal Past Anesthesia/Blood Transfusion Reactions: No Reported Reaction Date of Last Stent Placement:: UNK Past Psychological History: No Psychological Hx Reported Smoking Status: Former smoker Past Alcohol Use History: None Reported Past Drug Use History: Marijuana - Past Family History Mother Family Medical History: Diabetes Mellitus Father History Unknown: Yes General Exam - General Exam Comments Initial Comments: PHYSICAL EXAM: General Impression: Alert and oriented x3, not in acute distress HEENT: Normocephalic atraumatic, extra-ocular movements intact, pupils equal and reactive to light bilaterally, mucous membranes moist. Cardiovascular: Heart regular rate and rhythm Chest: Able to complete full sentences, no retractions, no tachypnea Abdomen: abdomen soft, non-tender, non-distended, no organomegaly Musculoskeletal: Pulses present and equal in all extremities, no peripheral edema Motor: no focal deficits noted Neurological: CN II-XII grossly intact, no focal motor or sensory deficits noted Skin: Incision site is mostly clean dry and intact except for the lateral incision. There does appear to be some dehiscence with some mild drainage. No surrounding erythema. No palpable fluctuance Psych: Normal affect and mood Limitations: no limitations Course Vital Signs 04/06/24 12:39 Temperature 98.3 F Pulse Rate 70 Respiratory 18 Rate Blood Pressure 139/92 O2 Sat by Pulse 98 Oximetry Medical Decision Making - Medical Decision Making Was pt. sent in by a medical professional or institution (, PA, BASIN TENDER, urgent care, hospital, or correction...) When possible be specific @ -No Did you speak to anyone other than the patient for history (EMS, parent, family, police, friend...)? What history was obtained from this source @ -No Did you review nursing and triage notes (agree or disagree)? Why? @ -I reviewed and agree with nursing and triage notes Were old charts reviewed (outside hosp., previous admission, EMS record, old EKG, old radiological studies, urgent care reports/EKG's, correction records)? Report findings @ -No old charts were reviewed Differential Diagnosis (chest pain, altered mental status, abdominal pain women, abdominal pain men, vaginal bleeding, musculoskeletal, weakness, fever, dyspnea, syncope, headache, dizziness, GI bleed, back pain, seizure, CVA, palpatations, mental health)? @ -Wound abscess, wound dehiscence, cellulitis EKG interpreted by me (3pts min.). @ -None done X-rays interpreted by me (1pt min.). @ -None done CT interpreted by me (1pt min.). @ -None done U/S interpreted by me (1pt. min.). @ -None done What testing was considered but not performed or refused? (CT, X-rays, U/S, labs)? Why? @ -None What meds were considered but not given or refused? Why? @ -None Was smoking cessation discussed for >3mins.? @ -No Were there social determinants of health that impacted care today? How? (Homelessness, low income, unemployed, alcoholism, drug addiction, transportation, low edu. Level, literacy, decrease access to med. care, longterm, rehab)? @ -No Was there de-escalation of care discussed even if they declined (Discuss DNR or withdrawal of care, Hospice)? DNR status @ -No What co-morbidities impacted this encounter? (DM, HTN, Smoking, COPD, CAD, Cancer, CVA, ARF, Chemo, Hep., AIDS, mental health diagnosis, sleep apnea, morbid obesity)? @ -None Was patient admitted / discharged? Hospital course, mention meds given and route, prescriptions, significant lab abnormalities, going to OR and other pertinent info. @ -44-year-old male presents to the emergency department for chief complaint of staple removal. Vital signs stable. Patient has some drainage coming from his lateral incision site. Otherwise he has soft abdomen no obvious cellulitis. Patient agreeable for oral antibiotics and to follow-up with his surgeon on 2 days. At this point we we will opt to leave the ronnie. Did you discuss the management of the patient with other professionals (professionals i.e. , PA, BASIN TENDER, lab, RT, psych nurse, psych social worker, citrus fruit packer, teacher, public health service officer, watch caser)? Give summary @ -No Was critical care preformed (if so, how long)? @ -No Undiagnosed new problem with uncertain prognosis? @ -No Drug Therapy requiring intensive monitoring for toxicity (Heparin, Nitro, Insulin, Cardizem)? @ -No Were any procedures done? @ -No Diagnosis/symptom? Acute, or Chronic, or Acute on Chronic? Uncomplicated (without systemic symptoms) or Complicated (systemic symptoms)? @ -Surgical wound drainage Side effects of treatment? @ -No Exacerbation, Progression, or Severe Exacerbation? @ -No Poses a threat to life or bodily function? How? (Chest pain, [place], [place], pneumonia, PE, COPD, DKA, ARF, appy, cholecystitis, CVA, Diverticulitis, Homicidal, Suicidal, threat to staff... and all critical care pts) @ -yes Disposition Clinical Impression: Chest pain Disposition: HOME SELF-CARE Condition: Fair Instructions (If sedation given, give patient instructions): Surgical Site Infections (ED) Prescriptions: Sulfamethox-Tmp 800-160Mg [Bactrim DS 800-160 mg] 1 tab PO Q12HR 5 Days #10 tab Cephalexin [Keflex] 500 mg PO Q6HR 5 Days #20 cap Is patient prescribed a controlled substance at d/c from ED?: No Referrals: Uriel France MD [STAFF PHYSICIAN] - 1-2 days Time of Disposition: 13:01
[2024-04-06 13:11] VITALS: BP 142/102; PULSE 67
== END 2024-04-06 13:16 | disposition home or self-care (01) ==
LOC: EC 12:35
DX: R07.9 Chest pain, unspecified (principal); Z87.891 Personal history of nicotine dependence; Z86.73 Personal history of transient ischemic attack (TIA), and cerebral infarction without residual deficits; Z95.5 Presence of coronary angioplasty implant and graft
CPT/HCPCS: 99283

== ENCOUNTER 2024-10-14 06:28 | Day surgery (SDC) | payer OTHER ==
[~2024-10-14 06:28] MED LIST changes: -LIDOCAINE 1% (10MG/ML) FOR IV START INTRADERMA PRN; +ceFAZolin 2 GM in DEXTROSE 5% IN WATER 50 ML IVPB PRN
[2024-10-14] MEDS: IV FLUID CONTINUATION 1,000 ML IV ONE ×2 (07:05→10:03)
[2024-10-14] MEDS ORDERED: LIDOCAINE 1% (10MG/ML) FOR IV START INTRADERMA PRN (07:07)
[2024-10-14 07:35] LABS: HCT 42.2 % (39.6-50.0); HGB 15.3 g/dL (13.0-17.0); MCH 31.2 pg (27.0-32.0); MCHC 36.3 g/dL (32.0-37.0); MCV 85.9 fL (80.0-97.0); Mean Platelet Volume 10.1 fL (9.5-12.2); Platelet Count 262 10*3/uL (140-440); RBC 4.91 10*6/uL (4.40-5.60); RDW 13.2 % (11.5-14.5); WBC 5.17 10*3/uL (4.50-10.00)
[2024-10-14 07:36] LABS: Basophils # (A) 0.07 10*3/uL (0.00-0.10); Basophils % (A) 1.4 %; Eosinophils # (A) 0.26 10*3/uL (0.04-0.35); Lymphocytes # (A) 0.93 10*3/uL (0.90-5.00); Monocytes # (A) 0.62 10*3/uL (0.20-1.00); Neutrophils # (A) 3.25 10*3/uL (1.80-7.70); Neutrophils % (A) 62.8 %
[2024-10-14] MEDS: ONDANSETRON 4 MG/2 ML VIAL IVP ONE (07:38)
[2024-10-14] MEDS: DEXAMETHASONE SOD PHOSPHATE 4 MG/ML 1 ML VIAL IV ONE (07:38)
[2024-10-14] MEDS: ACETAMINOPHEN TAB 500 MG TAB PO PRN (07:39)
[2024-10-14] MEDS: LACTATED RINGERS 1,000 ML IV SCH (07:39)
[2024-10-14] MEDS: HEPARIN SODIUM,PORCINE 5,000 UNIT/ML 1 ML VIAL SQ PRN (07:39)
[2024-10-14 07:48] LABS: Partial Thromboplastin Time 26.1 sec (22.0-30.0); Prothrombin Time 11.5 sec (10.0-12.5)
[2024-10-14] MEDS: MIDAZOLAM 2 MG/2 ML VIAL IV PRN (07:51)
[2024-10-14] MEDS ORDERED: fentaNYL (PF) 50 MCG/ML 2 ML AMP ONE (08:35)
[2024-10-14] MEDS ORDERED: GLYCOPYRROLATE 0.2 MG/ML 2 ML VIAL ONE (08:35)
[2024-10-14] MEDS ORDERED: SUCCINYLCHOLINE CHLORIDE 200 MG/10 ML VIAL IV ONE (08:35)
[2024-10-14] MEDS ORDERED: LIDOCAINE 1% INJ 10MG/ML (20 ML MDV) ONE (08:35)
[2024-10-14] MEDS ORDERED: ROPIVACAINE 5 MG/ML 30 ML VIAL ONE (08:35)
[2024-10-14] MEDS ORDERED: SODIUM CHLORIDE 0.9% (PF) 10 ML VIAL ONE (08:35)
[2024-10-14] MEDS ORDERED: NEOSTIGMINE 1 MG/ML 10 ML VIAL ONE (08:35)
[2024-10-14] MEDS ORDERED: PROPOFOL 10 MG/ML 20 ML VIAL IV ONE (08:35)
[2024-10-14] MEDS ORDERED: ROCURONIUM 10 MG/ML (5 ML VIAL) IV ONE (08:35)
[2024-10-14] MEDS ORDERED: DEXAMETHASONE SOD PHOSPHATE 4 MG/ML 1 ML VIAL ONE (08:35)
[2024-10-14] MEDS ORDERED: KETOROLAC 15 MG/ML 1 ML VIAL ONE (08:35)
[2024-10-14] MEDS ORDERED: MIDAZOLAM 2 MG/2 ML VIAL ONE (08:35)
[2024-10-14] MEDS: WATER IV ONE (08:39)
[2024-10-14] MEDS: DEXTROSE 5% IV ONE (08:39)
[2024-10-14] MEDS: CEFAZOLIN IV ONE (08:39)
--- NOTE | 2024-10-14 09:05 | P.ANPRN ---
Procedure Note - Anesthesia - Nerve Block Performed Bilateral Erector Spinae Single Time Out Performed: Yes Date of Procedure: 10/14/24 Procedure Start Time: 07:51 Procedure Stop Time: 08:03 Location of Patient: PreOp Indication: Acute Post-Operative Pain, Requested by Surgeon Sedation Type: Sedate with meaningful contact maintained Preparation: Sterile Prep, Sterile Dressing Position: Prone Catheter: None Needle Types: Facet Needle Gauge: 20 Ultrasound used to visualize needle placement: Yes Ultrasound used to observe medication spread: Yes Injectate: Other (see comment) (ropivacaine 0.25% 30 ml + 2 mg dexamethasone per side) Blood Aspirated: No Pain Paresthesia on Injection Noted: No Resistance on Injection: Normal Image Stored and Saved: Yes Events: Uneventful and Well Tolerated
[2024-10-14] MEDS: fentaNYL (PF) 50 MCG/ML 2 ML AMP IVP PRN (10:32)
[2024-10-14] MEDS ORDERED: ACETAMINOPHEN TAB 325 MG TAB PO PRN (10:48)
[2024-10-14] MEDS ORDERED: HYDROcodone/APAP 5-325MG 1 EACH TAB PO PRN (10:48)
[2024-10-14] MEDS ORDERED: ONDANSETRON 4 MG/2 ML VIAL IVP PRN (10:48)
[2024-10-14] MEDS ORDERED: NALOXONE 0.4 MG/ML 1 ML VIAL IV PRN (10:48)
[2024-10-14] MEDS: HYDROmorphone 0.5 MG/0.5 ML SYRINGE IVP PRN ×2 (10:56→17:30)
[2024-10-14] MEDS: droPERidol 2.5 MG/ML VIAL IVP STA (11:02)
[2024-10-14] MEDS: HYDROmorphone 1 MG/ML 1 ML SYRINGE IVP PRN (13:45)
[2024-10-14] MEDS: D5-0.45% NACL WITH KCL 20MEQ/L 1,000 ML IV SCH (15:54)
[2024-10-14] MEDS: KETOROLAC 15 MG/ML 1 ML VIAL IVP SCH (17:29)
[2024-10-14] MEDS ORDERED: HYDROcodone/APAP 10-325MG 1 EACH TAB PO PRN (19:21)
[2024-10-14] MEDS ORDERED: ENOXAPARIN 40 MG/0.4 ML SYRINGE SQ SCH (19:30)
[2024-10-14] MEDS: METOPROLOL TARTRATE 50 MG TAB PO SCH (20:56)
[2024-10-14] MEDS: HYDROcodone/APAP 5-325MG 1 EACH TAB PO PRN (22:46)
[2024-10-15] MEDS ORDERED: METOPROLOL TARTRATE 50 MG TAB PO SCH (07:30)
[2024-10-15] MEDS: ENOXAPARIN 40 MG/0.4 ML SYRINGE SQ SCH (08:26)
--- NOTE | 2024-10-15 13:17 | P.PN ---
Subjective Progress Note Date: 10/15/24 SURGICAL PROGRESS NOTE CHIEF COMPLAINT: Incisional hernia HISTORY OF PRESENT ILLNESS: Patient is postop day #1 status post open incisional hernia repair. Pain is controlled. He is tolerating diet. Denies any nausea or vomiting. SPEEDY drain with 150 mL sanguinous output yesterday and 90 mL output through the night. Afebrile. WBC 5.17 INR 1.0 PHYSICAL EXAM: VITAL SIGNS: Reviewed. GENERAL: Well-developed in no acute distress. HEENT: No sclera icterus. Extraocular movements grossly intact. Moist buccal mucosa. Head is atraumatic, normocephalic. ABDOMEN: Soft. Nondistended. Tenderness at incision site. Abdominal dressing clean dry and intact. SPEEDY drain sanguinous output. NEUROLOGIC: Alert and oriented. Cranial nerves II through XII grossly intact. ASSESSMENT: 1. Incisional hernia status post open repair PLAN: - Continue pain management - Okay to resume Coumadin. Patient has a history of mechanical heart valve - Continue regular diet - Encourage patient increase activity level - Repeat labs in a.m. Physician Juvenile Correctional Officer note has been reviewed by physician. Signing provider agrees with the documented findings, assessment, and plan of care. Objective - Vital Signs Vital signs: Vital Signs Temp 98.4 F 10/15/24 08:00 Pulse 65 10/15/24 08:00 Resp 16 10/15/24 08:00 BP 151/95 10/15/24 08:00 Pulse Ox 98 10/15/24 08:00 FiO2 Intake & Output 10/14/24 10/15/24 10/15/24 18:59 06:59 18:59 Intake Total 1765 1080 Output Total 275 75 890 Balance 1490 1005 -890 Weight 112.8 kg 112.8 kg Intake: IV 1150 Intake, IV Titration 375 Amount D5-0.45% NaCl with KCl 375 20Meq/l 1,000 ml @ 125 mls/hr IV .Q8H JACQUELINE Rx#: [id number] Oral 240 1080 Output: Drainage 125 25 140 Left Abdomen 125 25 140 Urine 50 50 750 Estimated Blood Loss 100 Other: Voiding Method Urinal Urinal # Voids 1 1 - Labs CBC & Chem 7: 10/14/24 07:25
[2024-10-15] MEDS: WARFARIN 2 MG TAB PO SCH (14:40)
[2024-10-15] MEDS: WARFARIN 2 MG TAB PO ONE (18:09)
--- NOTE | 2024-10-16 00:33 | CONS ---
CONSULTATION CHIEF COMPLAINT: Ventral hernia. HISTORY OF PRESENT ILLNESS: This gentleman came in for elective procedure to repair of ventral hernia from his prior surgeries. He has been doing well otherwise. He denies any vomiting, chest pain, etc. Past Medical History, Family History, Personal and Social Histories reveal that he is not allergic to any medication. He has been on Vicodin 10 mg twice a day p.r.n. Remainder of his history is unremarkable. PHYSICAL EXAMINATION: VITAL SIGNS: Normal. HEAD, EARS, EYES, NOSE, MOUTH, AND THROAT: Normal. CHEST: Clear. CARDIAC: Normal sinus rhythm. ABDOMEN: Soft, nontender. EXTREMITIES: Normal. NEUROLOGICAL: Intact. ASSESSMENT: He is admitted to the hospital with diagnoses of, 1. Ventral hernia. 2. Previous history of diverticulitis with colostomy. RECOMMENDATION: At this time none. Thank you respectfully. None. no history of this. Have them put on dress hand okay are the MMODL / IJN: [id number] /
[2024-10-16 05:58] LABS: Prothrombin Time 11.3 sec (10.0-12.5)
[2024-10-16 08:24] LABS: Basophils # (A) 0.05 X 10*3/uL (0.00-0.10); Basophils % (A) 0.6 %; Eosinophils # (A) 0.52 X 10*3/uL (0.04-0.35); Eosinophils % (A) 6.6 %; HCT 39.4 % (39.6-50.0); HGB 13.2 g/dL (13.0-17.0); Lymphocytes # (A) 1.01 X 10*3/uL (0.90-5.00); Lymphocytes % (A) 12.9 %; MCH 30.3 pg (27.0-32.0); MCHC 33.5 g/dL (32.0-37.0); MCV 90.6 FL (80.0-97.0); Mean Platelet Volume 10.6 FL (9.5-12.2); Monocytes # (A) 0.84 X 10*3/uL (0.20-1.00); Monocytes % (A) 10.7 %; NRBC Per 100 WBC 0 X 10*3/uL (0.00-0.01); Neutrophils # (A) 5.37 X 10*3/uL (1.80-7.70); Neutrophils % (A) 68.7 %; Platelet Count 236 X 10*3/uL (140-440); RBC 4.35 X 10*6/uL (4.40-5.60); RDW 13.7 % (11.5-14.5); WBC 7.83 X 10*3/uL (4.50-10.00)
[2024-10-16 08:42] LABS: BUN/Creat Ratio 9.67 Ratio (12.00-20.00); Blood Urea Nitrogen 8.7 mg/dL (9.0-27.0); Calcium 8.5 mg/dL (8.7-10.3); Chloride 104 mmol/L (96-109); Glucose 112 mg/dL (70-110); Potassium 4.4 mmol/L (3.5-5.5); Sodium 136 mmol/L (135-145)
--- NOTE | 2024-10-16 12:35 | P.PN ---
Subjective Progress Note Date: 10/16/24 SURGICAL PROGRESS NOTE CHIEF COMPLAINT: Incisional hernia HISTORY OF PRESENT ILLNESS: Patient is postop day #2 status post open incisional hernia repair. Pain is controlled. He is tolerating diet. Reports he is not eating much. He does have pain with coughing. He is having flatus. He reports not ambulating much. SPEEDY drain 95 mL sanguinous output afebrile. WBC 7.83 Hgb 13.2 platelets 236 PHYSICAL EXAM: VITAL SIGNS: Reviewed. GENERAL: Well-developed in no acute distress. HEENT: No sclera icterus. Extraocular movements grossly intact. Moist buccal mucosa. Head is atraumatic, normocephalic. ABDOMEN: Soft. Nondistended. Tenderness at incision site. Abdominal dressing clean dry and intact. SPEEDY drain sanguinous output. NEUROLOGIC: Alert and oriented. Cranial nerves II through XII grossly intact. ASSESSMENT: 1. Incisional hernia status post open repair PLAN: - Continue pain management - Patient restarted Coumadin. Pharmacy dosing Coumadin. Patient has a history of mechanical heart valve - Continue regular diet - Encourage patient increase activity level - Discontinue IV fluids Physician Aircraft Fueler note has been reviewed by physician. Signing provider agrees with the documented findings, assessment, and plan of care. Objective - Vital Signs Vital signs: Vital Signs Temp 98 F 10/16/24 07:35 Pulse 69 10/16/24 07:35 Resp 16 10/16/24 07:35 BP 148/85 10/16/24 07:35 Pulse Ox 96 10/16/24 07:35 FiO2 Intake & Output 10/15/24 10/16/24 10/16/24 18:59 06:59 18:59 Intake Total 200 Output Total 890 1795 1065 Balance -890 -1595 -1065 Intake: Oral 200 Output: Drainage 140 45 40 Left Abdomen 140 45 40 Urine 750 1750 1025 Other: Voiding Method Urinal Urinal - Labs CBC & Chem 7: 10/16/24 05:23 10/16/24 05:23 Labs: Abnormal Lab Results - Last 24 Hours (Table) 10/16/24 10/16/24 Range/Units 05:23 05:23 RBC 4.35 L (4.40-5.60) X 10*6/uL Hct 39.4 L (39.6-50.0) % Eosinophils # 0.52 H (0.04-0.35) X 10*3/uL BUN 8.7 L (9.0-27.0) mg/dL BUN/Creatinine Ratio 9.67 L (12.00-20.00) Ratio Glucose 112 H (70-110) mg/dL Calcium 8.5 L (8.7-10.3) mg/dL
[2024-10-16 12:58] VITALS: BP 159/98; PULSE 67; RESP 17; TEMP 98.3
--- NOTE | 2024-10-16 14:54 | PN ---
PROGRESS NOTE DATE OF SERVICE: 10/15/2024 CHIEF COMPLAINT: Ventral hernia. HISTORY OF PRESENT ILLNESS: This gentleman is doing fairly well. He is not having a great deal of pain. He has had no shortness of breath. Blood pressure is elevated at 151/95. PHYSICAL EXAMINATION: GENERAL: He is awake and alert. CHEST: Clear. CARDIAC: Normal. IMPRESSION: 1. Status post ventral herniorrhaphy. 2. Hypertension. PLAN: Continue to follow and manage hypertension as needed. MMODL / IJN: [id number] /
--- NOTE | 2024-10-16 15:03 | P.DS ---
Providers Expected date of discharge: 10/16/24 Attending physician: Uriel France Consults: 10/14/24 10:48 Consult Physician Routine Consulting Provider: Diego Denise Consult Reason/Comments: med manage Do you want consulting provider notified?: Yes Primary care physician: Diego Denise Hospital Course: Discharge diagnosis 1. Incisional hernia Hospital course This is a 44-year-old male with an incisional hernia. He is status post open incisional hernia repair. His pain is controlled. He is tolerating diet. He has been up and ambulating. He is afebrile. He is having flatus. He is stable for discharge. Please refer to chart for any further details. Physician Nuclear Criticality Safety Engineer note has been reviewed by physician. Signing provider agrees with the documented findings, assessment, and plan of care. Patient Condition at Discharge: Stable Plan - Discharge Summary Discharge Rx Participant: Yes New Discharge Prescriptions: New HYDROcodone/APAP 10-325MG [[place] 10-325] 1 tab PO Q8HR PRN 3 Days #9 tab PRN Reason: Pain Enoxaparin [Lovenox] 40 mg SQ Q12H #14 each Continue Metoprolol Tartrate [Lopressor] 100 mg PO BID-W/MEALS Enoxaparin [Lovenox] 40 mg SQ Q12H #14 each Ibuprofen 800 mg PO BID PRN PRN Reason: Pain Unk Vitamin B12 1 tab PO DAILY Unk Probiotic 1 tab PO DAILY HYDROcodone/APAP 10-325MG [[place] 10-325] 1 tab PO TID PRN PRN Reason: Pain Warfarin Sodium 4 mg PO FR Warfarin Sodium 3 mg PO SUMOTUWETHSA Discharge Medication List Metoprolol Tartrate [Lopressor] 100 mg PO BID-W/MEALS 10/17/23 [History] HYDROcodone/APAP 10-325MG [[place] 10-325] 1 tab PO TID PRN 02/21/24 [History] Warfarin Sodium 3 mg PO SUMOTUWETHSA 03/19/24 [History] Warfarin Sodium 4 mg PO FR 03/19/24 [History] Enoxaparin [Lovenox] 40 mg SQ Q12H #14 each 04/01/24 [Rx] Ibuprofen 800 mg PO BID PRN 10/09/24 [History] Unk Probiotic 1 tab PO DAILY 10/09/24 [History] Unk Vitamin B12 1 tab PO DAILY 10/09/24 [History] Enoxaparin [Lovenox] 40 mg SQ Q12H #14 each 10/16/24 [Rx] HYDROcodone/APAP 10-325MG [[place] 10-325] 1 tab PO Q8HR PRN 3 Days #9 tab 10/16/24 [Rx] Follow up Appointment(s)/Referral(s): [facility], [NON-STAFF] - 1 Week Uriel France MD [STAFF PHYSICIAN] - 10/24/24 1:30 pm Activity/Diet/Wound Care/Special Instructions: No driving while taking [place]. No lifting over 10 pounds Shower daily. No soaking or tub baths for 2 weeks Very light activity until you are reevaluated at your follow up appointment with your surgeon Keep a log of SPEEDY drain output and bring with you to your follow-up appointment Milk/strip drains 2-3 times a day Patient to follow-up with his major league baseball player within the next 3 days for PT/INR check Discharge Disposition: HOME SELF-CARE
[2024-10-16] MEDS ORDERED: WARFARIN 5 MG TAB PO ONE (18:00)
--- NOTE | 2024-10-17 16:31 | PN ---
PROGRESS NOTE CHIEF COMPLAINT: Status post ventral herniorrhaphy. HISTORY OF PRESENT ILLNESS: This gentleman is doing well. Knee is improving. PHYSICAL EXAMINATION: CHEST: Clear. CARDIAC: Normal. ABDOMEN: Bowel sounds are present. VITAL SIGNS: He is afebrile. IMPRESSION: 1. Status post ventral herniorrhaphy. 2. History of cardiac valvular disease. 3. History of substance abuse. PLAN: Probably home in the next day or two. MMODL / IJN: [id number] /
--- NOTE | 2024-11-07 15:10 | P.OP ---
Date of Procedure: 10/14/24 Preoperative Diagnosis: incisional hernia Postoperative Diagnosis: incisional hernia Procedure(s) Performed: open repair of incisional hernia with mesh Anesthesia: LISA Surgeon: Uriel France Estimated Blood Loss (ml): 15 Pathology: none sent Condition: stable Disposition: PACU Description of Procedure: the patient was placed on the operative table in the supine position. He received general endotracheal tube anesthesia. His abdomen was prepped and draped in the usual sterile fashion. The patient had a previous midline scar. There was a large incisional hernia noted. The skin was [id number] And then using blunt and sharp dissection with cautery the hernia sac was dissected free from the subcutaneous tissues. The hernia measured approximately 18 x 5 cm. A relaxing incision was made in the fascia external Oblique. And then the fascial defect was reapproximated using 0 Ethibond suture. And then this was buttressed with oh strata fix suture. After the fascia was closed a piece of Prolene mesh was placed over top of the repair and secured with a secure strap tacker. A SPEEDY drain was placed over top of the mesh and brought out through a separate stab incision. Jorge's fascia is closed with 0 Vicryl. Skin was closed with ronnie. Patient tolerated the procedure well. He was sent to recovery room in stable condition.
== END 2024-10-16 15:10 | disposition home or self-care (01) ==
LOC: OR 06:28 → 5NMEDONC 10:16 → OR 10-16 15:10
PROVIDERS: ATTEND Surgery
DX: K43.2 Incisional hernia without obstruction or gangrene (principal); G89.18 Other acute postprocedural pain; I10 Essential (primary) hypertension; Z79.01 Long term (current) use of anticoagulants; Z95.2 Presence of prosthetic heart valve; Z93.3 Colostomy status; Z86.73 Personal history of transient ischemic attack (TIA), and cerebral infarction without residual deficits
CPT/HCPCS: 64468; 80048; 85025 ×2; 85610 ×2; 85730; 49591; C1781; J2250; J0330; J1644; J1100; J2710; J0690; J2405; J2003; J1650 ×2; J3010; J1171 ×4; J2795; J1885 ×3; J2704; J1596; J1790